=== PATIENT | female | born 1965 | race Caucasian/White ===

== ENCOUNTER 2020-12-10 10:59 | Emergency (ER) | payer MEDICAID, SELFPAY ==
[2020-12-10] VITALS (7 sets, daily range): BP systolic 115–152; BP diastolic 70–99; PULSE 61–89; RESP 14–18; TEMP 36.7–37.1; O2SAT 98–99; BMI 24.8
--- NOTE | ~2020-12-10 | CT_ITS ---
EXAMINATION: CT HEAD WITHOUT CONTRAST CLINICAL INFORMATION: Vertigo COMPARISON: None TECHNIQUE: Contiguous axial imaging was performed from the skull base to vertex without intravenous administration of contrast. This CT examination was performed using dose optimization techniques as appropriate, variously including the following: *Automated exposure control *Adjustment of mA and/or kV according to patient size (this includes techniques or standardized protocols for targeted exams where dose is matched to indication/reason for exam; i.e. extremities or head) *Use of iterative reconstruction technique DLP: 553 mGy-cm FINDINGS: There is no evidence of acute intracranial hemorrhage or territorial infarction. No abnormal mass effect or midline shift is seen. Villa to white matter differentiation is well preserved. No extra-axial fluid collections are identified. The ventricles are normal in size. There is no abnormal attenuation within the brain parenchyma. The osseous structures and soft tissues are normal. The mastoid air cells and visualized portions of the paranasal sinuses are well aerated. CT/CT head/brain wo con IMPRESSION: No acute intracranial process seen.
--- NOTE | ~2020-12-10 | MR_ITS ---
EXAMINATION: MR BRAIN WITHOUT CONTRAST CLINICAL INFORMATION: Vertigo. COMPARISON: CT head from 12/10/2020. TECHNIQUE: MRI of the brain was obtained using routine sequences without contrast. FINDINGS: No focal restricted diffusion is demonstrated to suggest acute or subacute cerebral ischemia. No evidence of acute or chronic hemorrhagic products on heme-sensitive imaging. Minimal nonspecific T2 FLAIR hyperintensities within the bilateral frontal lobes. No additional parenchymal signal abnormalities. The ventricles are normal in morphology and size. No abnormal mass effect. No midline shift. Normal appearance of the pituitary gland. The cerebellar tonsils are mildly low lying, positioned 0.4 cm below the foramen magnum. The CSF space of the foramen magnum is maintained. No additional abnormalities of the posterior fossa with normal appearance of the brainstem and cerebellum. Normal arterial and venous vascular flow voids are present. Normal, homogeneous marrow signal. Mild mucosal thickening of the paranasal sinuses. No signal abnormalities within the mastoids. MR/MR head/brain wo con IMPRESSION: 1. No acute intracranial abnormalities. 2. Minimal nonspecific white matter changes. 3. Mild cerebellar tonsillar ectopia.
--- NOTE | ~2020-12-10 | XR_ITS ---
EXAMINATION: XR CHEST CLINICAL INFORMATION: Chest tightness COMPARISON: Chest radiographs 04/24/2017, 04/19/2012 TECHNIQUE: Portable upright AP view of the chest was obtained. FINDINGS: The lungs are clear and there is no airspace consolidation, pneumothorax, pleural reaction, groundglass opacity, or effusion. There is a linear artifact likely from tag on gown overlying the mid right chest. The heart is normal in size. The hilar and mediastinal contours and bony structures are unremarkable. XR/XR chest 1V IMPRESSION: No acute intrathoracic disease. Lungs clear.
--- NOTE | 2020-12-10 12:41 | ECG_ITS ---
Test Reason : DIZZY Blood Pressure : / mmHG Vent. Rate : 056 BPM Atrial Rate : 056 BPM P-R Int : 126 ms QRS Dur : 070 ms QT Int : 430 ms P-R-T Axes : 046 021 030 degrees QTc Int : 414 ms Sinus bradycardia Otherwise normal ECG When compared with ECG of 24-APR-2017 11:48, No significant change was found Referred By: Kelly Wylie Electronically Signed By:Mayank Plunkett
--- NOTE | 2020-12-10 12:43 | ED_ITS ---
HPI - Dizziness General Chief Complaint: Dizziness Stated Complaint: dizziness Time Seen by Provider: 12/10/20 12:41 Source: patient Mode of arrival: ambulatory Limitations: no limitations History of Present Illness HPI Narrative: 55-year-old female came in for evaluation of vertigo. Symptoms started 3 days ago feeling everything spinning around her, patient also feeling generalized weakness, symptoms is intermittent worsening by changing position, patient has been feeling pressure in her head and her both years, complains of intermittent right upper extremities weakness. Patient also been having chest tightness for the past 3 days on and off. Related Data Allergies Allergy/AdvReac Type Severity Reaction Status Date / Time Cortisone Allergy Intermediate redness, Uncoded 12/10/20 11:20 hives, rash, swelling Review of Systems Review of Systems: All other systems are reviewed and are negative Constitutional: Reports as per HPI and Reports no additional constitutional complaints Eyes: Reports as per HPI and Reports no additional eye complaints Reports system reviewed and no additional complaints, except as documented Cardiovascular: Reports as per HPI and Reports no additional cardiovascular complaints Respiratory: Reports as per HPI and Reports no additional respiratory complaints Gastrointestinal: Reports as per HPI and Reports no additional gastrointestinal complaints Genitourinary: Reports no additional female genitourinary complaints Musculoskeletal: Reports no additional musculoskeletal complaints Skin/Breast: Reports system reviewed and no additional complaints, except as docu Psychiatric: Reports no additional psychiatric complaints Endocrine: Reports no additional endocrine complaints Hematologic/Lymphatic: Reports no additional hematologic/lymphatic complaints Allergic/Immunologic: Reports no additional allergic/immunologic complaints Reports system reviewed and no additional complaints, except as documented and Reports Abnormal speech present [facility] Past Medical History Medical History Anxiety Depression Migraines Vertigo Surgical History Hx of tubal ligation S/P hernia surgery Social History Social History Alcohol intake: never Patient Tobacco Use Status: Never used Tobacco Use of substances other than those prescribed or required for medical reasons: No Advance Directives: Yes Advance Directives Information Provided: Yes Advance Directives on File: No Patient : No Physical Exam Vital Signs: Vital Signs: Last Vital Signs Temp 98.2 F 12/10/20 15:37 Pulse 62 12/10/20 15:37 Resp 14 12/10/20 15:37 BP 123/70 12/10/20 15:37 Pulse Ox 98 12/10/20 15:37 Body Mass Index 24.8 Vital signs have been reviewed as appeared to be correct. Blood pressure normal. Heart rate normal. Respiration rate normal. Temperature normal. Oxygen saturation normal. Appearance: Alert. Oriented X3. No acute distress. Head: Normal external exam. Normocephalic. Atraumatic. No Thomas signs noted. No raccoon eyes noted Eyes: PERRLA. EOMI. Conjunctiva and sclera normal. Eyelids normal. ENT: TM's Normal. Pharynx normal. Uvula midline. Moist mucous membranes. No trismus noted. No drooling noted. No muffled voice noted. Neck: Normal inspection. Neck supple. FROM. No adenopathy. Thyroid Normal. No meningeal signs. No neck mass noted. CVS: Normal heart rate and rhythm. Heart sound normal. No murmurs noted. Pulses normal throughout. Respiratory: No respiratory distress. Painless inspiration. Breath sounds normal. No wheezes/rales/rhonchi noted. Chest nontender. No accessory muscle usage noted or decreased air movement noted. Abdomen: Soft and nontender. Bowel sounds normal in all 4 quadrants. No distention noted. No organomegaly noted. No visible injury noted. Back: No CVA tenderness. Full range of motion noted. Skin: Skin warm and dry. Normal skin color. Normal skin turgor. No rashes/lesions/lacerations noted. Extremities: No lower extremity edema. Extremities exhibit normal range of motion. Extremities nontender. Neuro: Oriented X 3. No motor deficit. No sensory deficit. No [id number] dysmetria, able to ambulate in the emergency department unsteady gait, walk heel to toe steady. NIH Stroke Scale Level of Consciousness: Alert Level of Consciousness Questions: Answers both questions correctly Level of Consciousness Commands: Performs both tasks correctly Best Gaze: Normal Visual: No visual loss Facial Palsy: Normal Motor Arm (Right): No drift Motor Arm (Left): No drift Motor Leg (Right): No drift Motor Leg (Left): No drift Limb Ataxia: Absent Sensory: Normal Best Language: No aphasia Dysarthia: Normal Extinction and Inattention: No abnormality Score: 0 Course Course Course Narrative: Assessment and plan. 55-year-old female came in with symptoms of vertigo, chest tightness. Elevated troponin , awaiting for 2nd 3 hours apart troponin to rule out delta change. Patient has unremarkable CT of the head, awaiting for MRI to rule out posterior fossa pathology. Case signed out to Dr. Rasmussen to follow up on above and dispo the patient accordingly. MDM - Dizziness Lab Data Attestation: I reviewed the patient's lab results. Result diagrams: 12/10/20 13:14 12/10/20 13:14 Labs: Lab Results 12/10/20 12/10/20 12/10/20 Range/Units 13:14 13:14 13:14 WBC 6.3 (4.8-10.8) X10*3/uL RBC 4.48 (4.20-5.50) X10*6/uL Hgb 13.6 (12.0-16.0) g/dl Hct 41.3 (37-47) % MCV 92.2 (80-98) fL MCH 30.4 (27.0-33.0) pg MCHC 32.9 (31.0-35.0) g/dl RDW 13.1 (11.0-16.0) % Plt Count 269 (160-400) X10*3/uL MPV 9.7 (9.4-12.3) fL Immature Gran % (Auto) 0.2 (0.0-0.4) % Neut % (Auto) 57.3 (45-73) % Lymph % (Auto) 34.9 (20-40) % [place] % (Auto) 6.5 (2-11) % Eos % (Auto) 0.6 (0-4) % Baso % (Auto) 0.5 (0-2) % Lymph # (Auto) 2.2 (1.2-4.9) X10*3/uL [place] # (Auto) 0.4 (0.1-1.2) X10*3/uL Eos # (Auto) 0.0 (0.0-0.4) X10*3/uL Baso # (Auto) 0.0 (0.0-0.2) X10*3/uL Abs Immat Gran (auto) 0.01 (0.00-0.03) X10*3/uL Absolute Neuts (auto) 3.6 (2.0-8.3) X10*3/uL Absolute Nucleated RBC 0.000 (0.0-0.012) X10*3/uL Nucleated RBC % (auto) 0.0 (0.0-0.2) /100WBC Sodium 141 (135-145) mmol/L Potassium 4.1 (3.3-5.1) mmol/L Chloride 108 (96-108) mmol/L Carbon Dioxide 26 (22-29) mmol/L Anion Gap 11 L (12-20) BUN 9 (9-16) mg/dL Creatinine 0.70 (0.5-1.4) mg/dL Estim Creat Clear Calc 78.5 Estimated GFR > 60 Random Glucose 107 (60-115) mg/dL Calcium 9.4 (8.4-10.2) mg/dL Total Bilirubin 0.3 (0.0-1.0) mg/dL Direct Bilirubin < 0.2 (0.0-0.5) mg/dL AST 20 (5-31) U/L ALT 12 (0-31) U/L Alkaline Phosphatase 78 (39-117) U/L Troponin I High Sens 19.5 H* (<3.5-17.0) ng/L Total Protein 7.4 (6.5-8.0) g/dL Albumin 4.4 (3.5-5.0) g/dL Lipase 25 (8-78) U/L Urine Color Urine Appearance Urine pH (5.0-8.0) Ur Specific [place] (1.005-1.025) Urine Protein (NEG-TRACE) MG/DL Urine Glucose (UA) (NEG) MG/DL Urine Ketones (NEG) MG/DL Urine Blood (NEG) Urine Nitrite (NEG) Ur Leukocyte Esterase (NEG) Urine RBC (0) /HPF Urine WBC (0-4) /HPF Ur Squamous Epith Cells /LPF Urine Bacteria /LPF 12/10/20 12/10/20 Range/Units 13:14 13:21 WBC (4.8-10.8) X10*3/uL RBC (4.20-5.50) X10*6/uL Hgb (12.0-16.0) g/dl Hct (37-47) % MCV (80-98) fL MCH (27.0-33.0) pg MCHC (31.0-35.0) g/dl RDW (11.0-16.0) % Plt Count (160-400) X10*3/uL MPV (9.4-12.3) fL Immature Gran % (Auto) (0.0-0.4) % Neut % (Auto) (45-73) % Lymph % (Auto) (20-40) % Haywood % (Auto) (2-11) % Eos % (Auto) (0-4) % Baso % (Auto) (0-2) % Lymph # (Auto) (1.2-4.9) X10*3/uL [place] # (Auto) (0.1-1.2) X10*3/uL Eos # (Auto) (0.0-0.4) X10*3/uL Baso # (Auto) (0.0-0.2) X10*3/uL Abs Immat Gran (auto) (0.00-0.03) X10*3/uL Absolute Neuts (auto) (2.0-8.3) X10*3/uL Absolute Nucleated RBC (0.0-0.012) X10*3/uL Nucleated RBC % (auto) (0.0-0.2) /100WBC Sodium (135-145) mmol/L Potassium (3.3-5.1) mmol/L Chloride (96-108) mmol/L Carbon Dioxide (22-29) mmol/L Anion Gap (12-20) BUN (9-16) mg/dL Creatinine (0.5-1.4) mg/dL Estim Creat Clear Calc Estimated GFR Random Glucose (60-115) mg/dL Calcium (8.4-10.2) mg/dL Total Bilirubin (0.0-1.0) mg/dL Direct Bilirubin (0.0-0.5) mg/dL AST (5-31) U/L ALT (0-31) U/L Alkaline Phosphatase (39-117) U/L Troponin I High Sens Cancelled (<3.5-17.0) ng/L Total Protein (6.5-8.0) g/dL Albumin (3.5-5.0) g/dL Lipase (8-78) U/L Urine Color YELLOW Urine Appearance CLEAR Urine pH 6.0 (5.0-8.0) Ur Specific [place] <= 1.005 (1.005-1.025) Urine Protein NEG (NEG-TRACE) MG/DL Urine Glucose (UA) NEG (NEG) MG/DL Urine Ketones NEG (NEG) MG/DL Urine Blood NEG (NEG) Urine Nitrite NEG (NEG) Ur Leukocyte Esterase 1+ H (NEG) Urine RBC 0-2 (0) /HPF Urine WBC 10-14 H (0-4) /HPF Ur Squamous Epith Cells 1+ /LPF Urine Bacteria TRACE /LPF Imaging Data CT scan - head: Radiologist's impression: No acute intracranial pathology. Chest x-ray: Radiologist's impression: No acute intrathoracic disease. Lungs clear. ECG Data Interpretation: Sinus bradycardia at 56 beats per minute, normal intervals, normal axis deviation, no ST-T changes. Discharge Plan Discharge Clinical Impression: Vertigo, Elevated troponin
[2020-12-10] MEDS: Meclizine HCl 25 MG TABLET PO (13:25)
[2020-12-10] MEDS: 0.9 % Sodium Chloride 1,000 ML 999 ML IVCONT (13:25)
[2020-12-10] MEDS: LORazepam 1 MG TABLET PO (13:26)
[2020-12-10 13:28] LABS: MANUAL DIFF FLAG NO
[2020-12-10 13:30] LABS: Basophils Percent Auto 0.5 % (0-2); Eosinophils Percent Auto 0.6 % (0-4); Hematocrit 41.3 % (37-47); Hemoglobin 13.6 g/dl (12.0-16.0); Imm Gran Abs Auto 0.01 X10*3/uL (0.00-0.03); Imm Gran Pct Auto 0.2 % (0.0-0.4); Lymphocytes Absolute Auto 2.2 X10*3/uL (1.2-4.9); Lymphocytes Percent Auto 34.9 % (20-40); Mean Corpuscular HGB Conc 32.9 g/dl (31.0-35.0); Mean Corpuscular Hemoglobin 30.4 pg (27.0-33.0); Mean Corpuscular Volume 92.2 fL (80-98); Mean Platelet Volume 9.7 fL (9.4-12.3); Monocytes Absolute Auto 0.4 X10*3/uL (0.1-1.2); Monocytes Percent Auto 6.5 % (2-11); Neutrophils Absolute Auto 3.6 X10*3/uL (2.0-8.3); Neutrophils Percent Auto 57.3 % (45-73); Platelet Count 269 X10*3/uL (160-400); Red Blood Count 4.48 X10*6/uL (4.20-5.50); Red Cell Distribution Width 13.1 % (11.0-16.0); White Blood Count 6.3 X10*3/uL (4.8-10.8)
[2020-12-10 13:31] LABS: Glucose Urine UA NEG (NEG); Leukocyte Esterase Urine 1+ (NEG); Nitrite Urine NEG (NEG); Specific Gravity - Urine <= 1.005 (1.005-1.025); UACC Culture Trigger YES; Urine Blood NEG (NEG); Urine Ketones NEG (NEG); Urine Protein NEG (NEG-TRACE)
[2020-12-10 13:34] LABS: Appearance Urine CLEAR; Color Urine YELLOW
[2020-12-10 13:43] LABS: Bacteria Urine TRACE /LPF; RBC Urine 0-2 /HPF (0); Squamous Epithelial Cell Urine 1+ /LPF
[2020-12-10 14:01] LABS: Alanine Aminotransferase 12 U/L (0-31); Albumin Level 4.4 g/dL (3.5-5.0); Alkaline Phosphatase 78 U/L (39-117); Anion Gap 11 (12-20); Aspartate Amino Transferase 20 U/L (5-31); Bilirubin Direct < 0.2 mg/dL (0.0-0.5); Bilirubin Total 0.3 mg/dL (0.0-1.0); Blood Urea Nitrogen 9 mg/dL (9-16); Calcium 9.4 mg/dL (8.4-10.2); Carbon Dioxide 26 mmol/L (22-29); Chloride 108 mmol/L (96-108); Creatinine Clr Calc Pharmacy 78.5; Estimated Glomerular Filt Rate > 60; Glucose Random 107 mg/dL (60-115); Lipase 25 U/L (8-78); Potassium 4.1 mmol/L (3.3-5.1); Sodium 141 mmol/L (135-145); Total Protein 7.4 g/dL (6.5-8.0)
[2020-12-10 14:09] LABS: Troponin-I High Sensitivity 19.5 ng/L (<3.5-17.0)
--- NOTE | 2020-12-10 14:41 | PC.NURSE ---
MRI screening form completed. Pt resting in bed in NAD.
[2020-12-10 18:00] LABS: Troponin-I High Sensitivity 16.5 ng/L (<3.5-17.0)
== END 2020-12-10 20:33 | disposition home or self-care (01) ==
PROVIDERS: Emergency Provider Emergency Medicine; PCP Internal Medicine
DX: H81.10 Benign paroxysmal vertigo, unspecified ear (principal); R79.89 Other specified abnormal findings of blood chemistry
CPT/HCPCS: 36415; 70450; 70551; 71045; 80048; 80076; 81001; 81003; 83690; 84484; 85025; 87086; 93005; 96360; 99285

== ENCOUNTER 2021-03-12 11:10 | Outpatient (REF) | payer OTHER, SELFPAY ==
--- NOTE | ~2021-03-12 | XR_ITS ---
EXAMINATION: XR CHEST CLINICAL INFORMATION: Acute upper respiratory infection. COMPARISON: Chest radiograph dated 12/10/2020. TECHNIQUE: 2 views of the chest were obtained. FINDINGS: The lungs are clear. The cardiomediastinal silhouette is normal in size. There is no pleural effusion or pneumothorax. No acute osseous abnormality. XR/XR chest 2V IMPRESSION: No acute cardiopulmonary findings.
[2021-03-12 11:53] LABS: Hematocrit 42.9 % (37-47); Hemoglobin 14.1 g/dl (12.0-16.0); Mean Corpuscular HGB Conc 32.9 g/dl (31.0-35.0); Mean Corpuscular Hemoglobin 29.8 pg (27.0-33.0); Mean Corpuscular Volume 90.7 fL (80-98); Mean Platelet Volume 9.8 fL (9.4-12.3); Platelet Count 302 X10*3/uL (160-400); Red Blood Count 4.73 X10*6/uL (4.20-5.50); Red Cell Distribution Width 12.9 % (11.0-16.0); White Blood Count 6.8 X10*3/uL (4.8-10.8)
[2021-03-12 12:06] LABS: Estimated Average Glucose 111 mg/dL; Hemoglobin A1c % 5.5 %
[2021-03-12 12:37] LABS: Alanine Aminotransferase 24 U/L (0-31); Albumin Level 4.7 g/dL (3.5-5.0); Alkaline Phosphatase 80 U/L (39-117); Anion Gap 11 (12-20); Aspartate Amino Transferase 24 U/L (5-31); Bilirubin Total 0.3 mg/dL (0.0-1.0); Blood Urea Nitrogen 10 mg/dL (9-16); Calcium 9.8 mg/dL (8.4-10.2); Carbon Dioxide 30 mmol/L (22-29); Chloride 104 mmol/L (96-108); Cholesterol 271 mg/dL; Estimated Glomerular Filt Rate > 60; Glucose Fasting 98 mg/dL (60-99); HDL Cholesterol 57 mg/dL; LDL Cholesterol Calculated 190 mg/dl; Potassium 4.6 mmol/L (3.3-5.1); Sodium 140 mmol/L (135-145); Total Protein 7.8 g/dL (6.5-8.0); Triglycerides 121 mg/dL
[2021-03-12 13:17] LABS: TSH reflex Free T4 0.44 uIU/mL (0.32-4.0)
== END 2021-03-12 11:11 | disposition home or self-care (01) ==
LOC: HO.XRAY 11:10
PROVIDERS: PCP Internal Medicine; Visit Provider Physician Assistant
DX: J06.9 Acute upper respiratory infection, unspecified (principal); I10 Essential (primary) hypertension; Z13.220 Encounter for screening for lipoid disorders; Z13.1 Encounter for screening for diabetes mellitus; Z13.29 Encounter for screening for other suspected endocrine disorder
CPT/HCPCS: 36415; 71046; 80053; 80061; 83036; 84443; 85027

== ENCOUNTER 2021-03-21 16:26 | Outpatient (REF) | payer OTHER, SELFPAY | END 2021-03-21 16:27 | disposition home or self-care (01) | LOC: HO.LNP 16:26 | PROVIDERS: Visit Provider Physician Assistant Medical | DX: R30.0 Dysuria (principal) | CPT/HCPCS: 87086 ==

== ENCOUNTER 2021-04-19 13:29 | Outpatient (REF) | payer OTHER, SELFPAY ==
--- NOTE | ~2021-04-19 | MM_ITS ---
EXAMINATION: MM SCREENING DIGITAL BREAST TOMOSYNTHESIS, BILATERAL CLINICAL INFORMATION: Screening. Asymptomatic. The lifetime risk of breast cancer based on the Tyrer-Cuzick Model is 8%. COMPARISON: Mammography: 09/22/2018, 08/10/2017, 07/17/2016 TECHNIQUE: Digital breast tomosynthesis is performed in both the craniocaudal and mediolateral oblique views along with computer-aided detection (CAD). Synthesized 2D images are generated from the tomosynthesis. Additional left CC view is provided. FINDINGS: There are scattered areas of fibroglandular density (ACR BI-RADS breast composition Category b). Parenchymal pattern is similar to prior studies. Scattered bilateral minor asymmetries are stable. There is no developing density or interval mass or architectural abnormality. Dermal lesion again seen overlying the posterior 7:00 left breast. There are no abnormal calcifications. The axilla and skin contours are unremarkable. MM/MM tomosynthesis screening BI IMPRESSION: No significant changes from prior exams. ASSESSMENT: BI-RADS 2: Benign RECOMMENDATION: Routine annual mammography screening. This patient's information was entered into a reminder system with a target due date for their next mammogram.
== END 2021-04-19 13:30 | disposition home or self-care (01) ==
LOC: HO.MAMMO 13:29
PROVIDERS: Visit Provider Internal Medicine
DX: Z12.31 Encounter for screening mammogram for malignant neoplasm of breast (principal)
CPT/HCPCS: 77063; 77067

== ENCOUNTER 2021-08-05 10:15 | Outpatient (REF) | payer OTHER, SELFPAY ==
[2021-08-05 10:42] LABS: MANUAL DIFF FLAG NO
[2021-08-05 10:59] LABS: Basophils Percent Auto 0.5 % (0-2); Eosinophils Absolute Auto 0.1 X10*3/uL (0.0-0.4); Eosinophils Percent Auto 1.2 % (0-4); Hematocrit 41.9 % (37.0-47.0); Hemoglobin 13.6 g/dl (12.0-16.0); Imm Gran Abs Auto 0.02 X10*3/uL (0.00-0.03); Imm Gran Pct Auto 0.3 % (0.0-0.4); Lymphocytes Absolute Auto 2.3 X10*3/uL (1.2-4.9); Lymphocytes Percent Auto 39.3 % (20-40); Mean Corpuscular HGB Conc 32.5 g/dl (31.0-35.0); Mean Corpuscular Hemoglobin 29.5 pg (27.0-33.0); Mean Corpuscular Volume 90.9 fL (80.0-98.0); Mean Platelet Volume 9.3 fL (9.4-12.3); Monocytes Absolute Auto 0.3 X10*3/uL (0.1-1.2); Monocytes Percent Auto 5.5 % (2-11); Neutrophils Absolute Auto 3.2 x10*3/uL (2.0-8.3); Neutrophils Percent Auto 53.2 % (45-73); Platelet Count 308 X10*3/uL (160-400); Red Blood Count 4.61 X10*6/uL (4.20-5.50); Red Cell Distribution Width 12.6 % (11.0-16.0)
[2021-08-05 11:27] LABS: Appearance Urine CLOUDY; Color Urine YELLOW; Glucose Urine UA NEG (NEG); Leukocyte Esterase Urine 3+ (NEG); Nitrite Urine NEG (NEG); Specific Gravity - Urine 1.015 (1.005-1.025); UACC Culture Trigger YES; Urine Blood TRACE (NEG); Urine Ketones NEG (NEG); Urine Protein TRACE MG/DL (NEG-TRACE)
[2021-08-05 11:27] LABS: Alanine Aminotransferase 15 U/L (0-31); Albumin Level 4.3 g/dL (3.5-5.0); Alkaline Phosphatase 68 U/L (39-117); Anion Gap 11 (12-20); Aspartate Amino Transferase 20 U/L (5-31); Bilirubin Total 0.2 mg/dL (0.0-1.0); Blood Urea Nitrogen 9 mg/dL (9-16); Calcium 9.5 mg/dL (8.4-10.2); Carbon Dioxide 28 mmol/L (22-29); Chloride 107 mmol/L (96-108); Cholesterol 213 mg/dL; Estimated Glomerular Filt Rate > 60; Glucose Fasting 107 mg/dL (60-99); HDL Cholesterol 49 mg/dL; LDL Cholesterol Calculated 143 mg/dl; Potassium 4.5 mmol/L (3.3-5.1); Sodium 141 mmol/L (135-145); Total Protein 7.2 g/dL (6.5-8.0); Triglycerides 107 mg/dL
[2021-08-05 11:44] LABS: RBC Urine 0-2 /HPF (0); Squamous Epithelial Cell Urine 2+ /LPF; WBC Urine 30-49 /HPF (0-4)
[2021-08-05 11:45] LABS: Amorphous Sediment Urine 3+ /LPF; Bacteria Urine 2+ /LPF; Renal Epithelial Cells Urine 1+ /LPF
[2021-08-05 17:47] LABS: Appearance Urine HAZY; Color Urine YELLOW; Glucose Urine UA NEG (NEG); Leukocyte Esterase Urine 3+ (NEG); Nitrite Urine NEG (NEG); PH 7.5 (5.0-8.0); Specific Gravity - Urine 1.015 (1.005-1.025); UACC Culture Trigger YES; Urine Blood TRACE (NEG); Urine Ketones NEG (NEG); Urine Protein NEG (NEG-TRACE)
[2021-08-05 18:02] LABS: Squamous Epithelial Cell Urine 2+ /LPF
[2021-08-05 18:03] LABS: Amorphous Sediment Urine 1+ /LPF
[2021-08-05 18:04] LABS: RBC Urine 0-2 /HPF (0)
== END 2021-08-05 10:16 | disposition home or self-care (01) ==
LOC: HO.LAB 10:15
PROVIDERS: PCP Internal Medicine; Visit Provider Nurse Practitioner Acute Care
DX: E78.5 Hyperlipidemia, unspecified (principal); R30.0 Dysuria
CPT/HCPCS: 36415; 80053; 80061; 81001; 85025; 87086; 87147

== ENCOUNTER 2021-08-13 10:00 | Outpatient (REF) | payer OTHER, SELFPAY ==
[2021-08-14 04:10] LABS: CT PCR NOT DETECTED (Not Detect.); NG PCR NOT DETECTED (Not Detect.)
== END 2021-08-13 10:01 | disposition home or self-care (01) ==
LOC: HO.LAB 10:00
PROVIDERS: PCP Internal Medicine; Visit Provider Advanced Practice Midwife
DX: Z01.411 Encounter for gynecological examination (general) (routine) with abnormal findings (principal); N95.2 Postmenopausal atrophic vaginitis; Z20.2 Contact with and (suspected) exposure to infections with a predominantly sexual mode of transmission
CPT/HCPCS: 87491; 87591

== ENCOUNTER 2021-09-18 07:57 | Outpatient (REF) | payer OTHER, SELFPAY ==
--- NOTE | ~2021-09-18 | XR_ITS ---
EXAMINATION: XR SHOULDER, RIGHT CLINICAL INFORMATION: Chronic pain. COMPARISON: 04/19/2015 TECHNIQUE: AP external rotation, Grashey, scapular Y, and axillary views of the right shoulder. FINDINGS: There is no evidence of acute fracture or dislocation of the right shoulder. Glenohumeral joint unremarkable. No evidence of calcific tendinitis. No significant degenerative change of the acromioclavicular joint is seen. No widening of the coracoclavicular space is seen. XR/XR shoulder RT min 2V IMPRESSION: No significant bony abnormality of the right shoulder identified.
== END 2021-09-18 07:58 | disposition home or self-care (01) ==
LOC: HO.XRAY 07:57
PROVIDERS: PCP Internal Medicine; Visit Provider Internal Medicine
DX: M25.511 Pain in right shoulder (principal)
CPT/HCPCS: 73030

== ENCOUNTER → 2021-10-18 08:34 | Outpatient (BNVA) | payer OTHER, SELFPAY | PROVIDERS: PCP Internal Medicine; Visit Provider Physician Assistant | DX: M75.101 Unspecified rotator cuff tear or rupture of right shoulder, not specified as traumatic (principal) | CPT/HCPCS: 99202; J1040 ==

== ENCOUNTER 2021-11-16 14:28 | Emergency (ER) | payer OTHER, SELFPAY ==
[2021-11-16 14:42] VITALS: BP 138/85; PULSE 72; RESP 19; TEMP 36.6; O2SAT 98; BMI 25.0
--- NOTE | 2021-11-16 15:27 | ED_ITS ---
HPI - Extremity Problem General Chief complaint: Extremity Injury, Upper Stated complaint: shoulder pain/vertigo Time Seen by Provider: 11/16/21 15:27 History of Present Illness HPI Narrative: Patient with right shoulder pain which has been going on for almost 2 months after she fell and injured it, she was seen by Orthopedics but refused to steroid shot as she has had a bad reaction to steroids in the past Two days ago she was walking and bumped her shoulder into the wall with a minor trauma, and the shoulder has been more painful since She did not fall down, no neck pain no head injury Related Data Home Medications Medication Instructions Recorded Confirmed duloxetine 20 mg capsule,delayed 20 mg PO DAILY 03/21/21 09/18/21 release hydroxyzine HCl 25 mg tablet 25 mg PO BID 03/21/21 09/18/21 propranolol 10 mg tablet 10 mg PO DAILY 03/21/21 09/18/21 Previous Rx's Medication Instructions Recorded meclizine 25 mg tablet 25 mg PO TID PRN motion sickness 12/10/20 #30 tabs ibuprofen 800 mg tablet 800 mg PO Q8H PRN pain 7 days #21 09/18/21 tabs atorvastatin 20 mg tablet 20 mg PO DAILY 90 days #90 tabs 09/23/21 acetaminophen 500 mg tablet 1,000 mg PO QID PRN pain #30 tabs 11/16/21 ibuprofen 800 mg tablet 800 mg PO Q8H PRN pain #30 tabs 11/16/21 lidocaine 5 % topical patch 1 patch topical DAILY PRN Right 11/16/21 shoulder pain #30 ea Allergies Allergy/AdvReac Type Severity Reaction Status Date / Time Cortisone Allergy Intermediate redness, Uncoded 10/18/21 08:45 hives, rash, swelling Review of Systems Review of Systems: Positive for right shoulder pain Negatives are no headache no neck pain no numbness weakness or tingling no radiation of pain no neck pain no chest pain no shortness of breath no palpitations no other extremity pains no rash Yes all other systems are reviewed and are negative [facility] Past Medical History Source: nursing notes reviewed Medical History Anxiety Depression Migraines Mild recurrent major depression Plantar fasciitis Right shoulder pain Vertigo Surgical History Hx of tubal ligation S/P hernia surgery Family History Family History Mother Mental health disorder Maternal Aunt Mental health disorder Breast cancer Ovarian cancer Maternal Grandmother Mental health disorder Father Substance use disorder Maternal Aunt Uterine cancer Social History Social History (Updated 10/18/21 @ 08:56 by MONIE Stevens) Housing: Apartment Alcohol intake: never Patient Tobacco Use Status: Former Tobacco user Tobacco use type: Cigarette e-Cigarette/Vaping Use: Never Used Second Hand Smoke Exposure: No Advance Directives: No Advance Directives Information Provided: No service: No Current occupational status: unemployed 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 Cognitive needs: No Hearing needs: No Vision needs: No Physical Exam Vital Signs: Vital Signs: Last Vital Signs Temp 98 F 11/16/21 14:42 Pulse 72 11/16/21 14:42 Resp 19 11/16/21 14:42 BP 138/85 11/16/21 14:42 Pulse Ox 98 11/16/21 14:42 O2 Del Method 11/16/21 14:42 BMI result Body Mass Index 25.0 General appearance no acute distress Head is normocephalic atraumatic Neck is supple and nontender with full range of motion The chest is clear to auscultation no chest wall tenderness Heart no murmur Extremities the right shoulder had anterior and lateral tenderness with a limited range of motion there was no redness or warmth, neurovascular intact distal Other extremities were normal Skin no rash Neuro no focal motor sensory deficits Course Course Course Narrative: Patient with increased right shoulder pain after bumping it into a wall, the mechanism was minor, she had decent range of motion there was no focal bony tenderness and very unlikely that she fractured it so no new x-ray was done She is given prescription for analgesics and encouraged to follow with orthopedics for further evaluation of possible rotator cuff injury from a previous fall 2 months ago Discharge Plan Discharge Clinical Impression: Sprain of right shoulder Patient Disposition: Home, Self-Care Additional Instructions: Follow with orthopedist for further evaluation Use Motrin and Tylenol as needed, lidocaine patch might help Return any concerns Prescriptions: New acetaminophen 500 mg tablet 1,000 mg PO QID PRN (Reason: pain) Qty: 30 0RF ibuprofen 800 mg tablet 800 mg PO Q8H PRN (Reason: pain) Qty: 30 0RF lidocaine 5 % adhesive patch,medicated 1 patch topical DAILY PRN (Reason: Right shoulder pain) Qty: 30 0RF Rx Instructions: leave on most painful area for up to 12 hrs No Action atorvastatin 20 mg tablet 20 mg PO DAILY 90 Days Qty: 90 1RF meclizine 25 mg tablet 25 mg PO TID PRN (Reason: motion sickness) Qty: 30 0RF duloxetine 20 mg capsule,delayed release(DR/EC) 20 mg PO DAILY propranolol 10 mg tablet 10 mg PO DAILY hydroxyzine HCl 25 mg tablet 25 mg PO BID ibuprofen 800 mg tablet 800 mg PO Q8H PRN (Reason: pain) 7 Days Qty: 21 0RF Referrals: Alcides Sorto MD [Physician] - (Possible right-sided rotator cuff injury) Interventions: ED Discharge Assessment Last Done: 11/16/21 16:23 Discharge Date/Time: 11/16/21 16:27
[2021-11-16] MEDS: Ketorolac Tromethamine 30 MG/ML VIAL IM (15:51)
== END 2021-11-16 16:27 | disposition home or self-care (01) ==
PROVIDERS: Emergency Provider Student in an Organized Health Care Education/Training Program; PCP Internal Medicine
DX: S43.401A Unspecified sprain of right shoulder joint, initial encounter (principal); R42 Dizziness and giddiness; W01.0XXA Fall on same level from slipping, tripping and stumbling without subsequent striking against object, initial encounter; Y93.9 Activity, unspecified; Y92.9 Unspecified place or not applicable; Y99.9 Unspecified external cause status; Z87.891 Personal history of nicotine dependence; Z79.899 Other long term (current) drug therapy
CPT/HCPCS: 96372; 99283; 99284; J1885

== ENCOUNTER → 2021-12-10 12:43 | Outpatient (BNVA) | payer OTHER, SELFPAY | PROVIDERS: Visit Provider Physician Assistant | DX: M75.101 Unspecified rotator cuff tear or rupture of right shoulder, not specified as traumatic (principal) | CPT/HCPCS: 99212 ==

== ENCOUNTER 2021-12-20 10:51 | Outpatient (REF) | payer OTHER, SELFPAY ==
--- NOTE | ~2021-12-20 | CT_ITS ---
EXAMINATION: CT SHOULDER WITHOUT CONTRAST, RIGHT CLINICAL INFORMATION: Rotator cuff tear. COMPARISON: X-rays of the right shoulder August 2021. TECHNIQUE: CT scan of the right shoulder was performed without contrast with reconstruction imaging performed at the acquisition workstation. This CT examination was performed using dose optimization techniques as appropriate, variously including the following: *Automated exposure control *Adjustment of mA and/or kV according to patient size (this includes techniques or standardized protocols for targeted exams where dose is matched to indication/reason for exam; i.e. extremities or head) *Use of iterative reconstruction technique DLP: 274 mGy-cm FINDINGS: The glenohumeral joint and acromioclavicular joint are normal. No fracture. Evaluation of the rotator cuff is limited without intra-articular contrast. No definite atrophy or fatty infiltration of the muscle. Partially visualized chest unremarkable. CT/CT shoulder RT wo con IMPRESSION: Normal examination. Cannot fully evaluate rotator cuff without intra-articular contrast. No atrophy or fatty infiltration of the rotator cuff muscles.
== END 2021-12-20 10:52 | disposition home or self-care (01) ==
LOC: HO.CT 10:51
PROVIDERS: PCP Internal Medicine; Visit Provider Physician Assistant
DX: M75.101 Unspecified rotator cuff tear or rupture of right shoulder, not specified as traumatic (principal)
CPT/HCPCS: 73200

== ENCOUNTER 2021-12-23 18:22 | Outpatient (REF) | payer OTHER, SELFPAY ==
--- NOTE | ~2021-12-23 | MR_ITS ---
EXAMINATION: MR SHOULDER WITHOUT CONTRAST, RIGHT CLINICAL INFORMATION: Right shoulder pain and numbness. Limited range of motion. Weakness. COMPARISON: Right shoulder CT dated 12/20/2021 and right shoulder radiographs dated 09/18/2021. TECHNIQUE: MRI of the shoulder without contrast was performed on a high-field scanner. FINDINGS: ROTATOR CUFF: [id number] supraspinatus tendinosis with articular surface fraying/tearing measuring up to 1.0 cm in ML dimension. No full-thickness rotator cuff tendon tear. No muscle atrophy or fatty infiltration. BICEPS: Intact. CORACOACROMIAL ARCH: The undersurface of the acromion is flat with no subacromial spur. Mild acromioclavicular osteoarthritis. Mild fluid and edema within the subacromial-subdeltoid bursa consistent with mild bursitis. LABRUM/CAPSULE: No displaced sacral tear. Mild edema adjacent to the joint capsule which can be seen in the setting of adhesive capsulitis. GLENOHUMERAL JOINT/MARROW: Intact articular cartilage. Trace joint effusion. MR/MR shoulder RT wo con IMPRESSION: 1. [id number] supraspinatus tendinosis with articular surface fraying measuring 1.0 cm in ML dimension. No full-thickness rotator cuff tendon tear. 2. Edema adjacent to the joint capsule which can be seen in the setting of adhesive capsulitis. 3. Mild acromioclavicular osteoarthritis. 4. Mild subacromial-subdeltoid bursitis. 5. Trace glenohumeral joint effusion.
== END 2021-12-23 18:23 | disposition home or self-care (01) ==
LOC: HO.MRI 18:22
PROVIDERS: Visit Provider Physician Assistant
DX: M75.101 Unspecified rotator cuff tear or rupture of right shoulder, not specified as traumatic (principal)
CPT/HCPCS: 73221

== ENCOUNTER → 2022-02-20 08:52 | Outpatient (BNVA) | payer OTHER, SELFPAY | PROVIDERS: PCP Internal Medicine; Referring Provider Internal Medicine; Visit Provider Surgery | DX: L76.82 Other postprocedural complications of skin and subcutaneous tissue (principal) | CPT/HCPCS: 99202 ==

== ENCOUNTER → 2022-02-27 09:40 | Outpatient (BNVA) | payer OTHER, SELFPAY | PROVIDERS: PCP Internal Medicine; Visit Provider Physician Assistant | DX: M75.01 Adhesive capsulitis of right shoulder (principal) | CPT/HCPCS: 99212 ==

== ENCOUNTER 2022-03-18 11:05 | Outpatient (REF) | payer OTHER, SELFPAY ==
[2022-03-18 11:23] LABS: MANUAL DIFF FLAG NO
[2022-03-18 12:08] LABS: Basophils Percent Auto 0.5 % (0-2); Eosinophils Absolute Auto 0.1 X10*3/uL (0.0-0.4); Eosinophils Percent Auto 1.1 % (0-4); Hematocrit 39.6 % (37.0-47.0); Hemoglobin 12.9 g/dl (12.0-16.0); Imm Gran Abs Auto 0.01 X10*3/uL (0.00-0.03); Imm Gran Pct Auto 0.2 % (0.0-0.4); Lymphocytes Absolute Auto 2.1 X10*3/uL (1.2-4.9); Lymphocytes Percent Auto 36.8 % (20-40); Mean Corpuscular HGB Conc 32.6 g/dl (31.0-35.0); Mean Corpuscular Hemoglobin 29.2 pg (27.0-33.0); Mean Corpuscular Volume 89.6 fL (80.0-98.0); Mean Platelet Volume 10.1 fL (9.4-12.3); Monocytes Absolute Auto 0.3 X10*3/uL (0.1-1.2); Neutrophils Absolute Auto 3.2 x10*3/uL (2.0-8.3); Neutrophils Percent Auto 56.4 % (45-73); Platelet Count 266 X10*3/uL (160-400); Red Blood Count 4.42 X10*6/uL (4.20-5.50); Red Cell Distribution Width 13.1 % (11.0-16.0); White Blood Count 5.7 X10*3/uL (4.8-10.8)
[2022-03-18 12:51] LABS: Alanine Aminotransferase 32 U/L (0-31); Albumin Level 4.6 g/dL (3.5-5.0); Alkaline Phosphatase 86 U/L (39-117); Anion Gap 15 (12-20); Aspartate Amino Transferase 32 U/L (5-31); Bilirubin Total 0.4 mg/dL (0.0-1.0); Blood Urea Nitrogen 6 mg/dL (9-16); Calcium 9.5 mg/dL (8.4-10.2); Carbon Dioxide 27 mmol/L (22-29); Chloride 105 mmol/L (96-108); Cholesterol 260 mg/dL; Estimated Glomerular Filt Rate > 60; Glucose Fasting 98 mg/dL (60-99); HDL Cholesterol 54 mg/dL; LDL Cholesterol Calculated 182 mg/dl; Potassium 3.7 mmol/L (3.3-5.1); Sodium 143 mmol/L (135-145); Total Protein 7.4 g/dL (6.5-8.0); Triglycerides 120 mg/dL
[2022-03-18 12:54] LABS: Vitamin D 25-OH Total 53.1 ng/mL (>30)
== END 2022-03-18 11:06 | disposition home or self-care (01) ==
LOC: HO.LAB 11:05
PROVIDERS: PCP Internal Medicine; Visit Provider Internal Medicine
DX: D64.9 Anemia, unspecified (principal); R42 Dizziness and giddiness; E55.9 Vitamin D deficiency, unspecified; E78.5 Hyperlipidemia, unspecified; G43.909 Migraine, unspecified, not intractable, without status migrainosus
CPT/HCPCS: 36415; 80053; 80061; 82306; 85025

== ENCOUNTER 2022-04-15 15:09 | Emergency (ER) | payer OTHER, SELFPAY ==
--- NOTE | ~2022-04-15 | CT_ITS ---
EXAMINATION: CT ABDOMEN AND PELVIS WITHOUT CONTRAST CLINICAL INFORMATION: Left flank pain. History of stone. COMPARISON: CT abdomen and pelvis 05/06/2018 TECHNIQUE: Multidetector volumetric imaging was performed from the superior aspect of the liver through the pubic symphysis. Sagittal and coronal reformatted images were obtained on the technologist's workstation. This CT examination was performed using dose optimization techniques as appropriate, variously including the following: *Automated exposure control *Adjustment of mA and/or kV according to patient size (this includes techniques or standardized protocols for targeted exams where dose is matched to indication/reason for exam; i.e. extremities or head) *Use of iterative reconstruction technique DLP: 465 mGy-cm FINDINGS: LUNG BASES: The visualized lung bases are unremarkable. LIVER, GALLBLADDER, AND BILIARY TREE: Subcentimeter hypodense probable cyst in the posterior segment right liver lobe, unchanged. No new liver lesion. Normal hepatic attenuation. No biliary ductal dilation. The gallbladder is unremarkable with no evidence of radiopaque gallstones, gallbladder wall thickening, or obvious pericholecystic inflammatory changes. PANCREAS: Unremarkable. SPLEEN: Unremarkable. ADRENAL GLANDS: Unremarkable. KIDNEYS AND URETERS: No radiodense urinary tract calculi. No hydronephrosis. Subcentimeter hypodense probable cyst in the anterior left mid to lower pole, too small to characterize. No further follow-up recommended. No other renal lesion identified. No perinephric stranding. BLADDER: Decompressed limiting assessment, but grossly unremarkable. GASTROINTESTINAL TRACT: Sigmoid diverticulosis. No evidence of acute diverticulitis. No dilated bowel loops. No bowel wall thickening. Status post appendectomy. Surgical clips at the cecal base. No ascites or free air. ABDOMINAL WALL: Tiny fat-containing umbilical/periumbilical hernia. LYMPH NODES: No lymphadenopathy. VASCULAR: Normal caliber abdominal aorta. PELVIC VISCERA: Gynecologic structures grossly unremarkable limited assessment. OSSEOUS STRUCTURES: No acute fracture or suspicious osseous lesion. CT/CT abdomen pelvis wo IV con IMPRESSION: 1. No radiodense urinary tract calculi. No hydronephrosis. 2. No acute intra-abdominal process. 3. Sigmoid diverticulosis. No evidence of acute diverticulitis.
[2022-04-15 18:16] VITALS: BP 132/84; PULSE 74; RESP 20; TEMP 36.7; O2SAT 95; BMI 23.1
--- NOTE | 2022-04-15 18:18 | ED_ITS ---
HPI - Female Genitourinary General Chief complaint: Urogenital-Female <Kelly Wylie MD - Last Filed: 04/15/22 18:19> Stated complaint: Frequent Urination Pain <Kelly Wylie MD - Last Filed: 04/15/22 18:19> Time Seen by Provider: 04/15/22 20:53 <Kelly Wylie MD - Last Filed: 04/15/22 18:19> Source: patient <Nando Aguila MD - Last Filed: 04/15/22 23:42> Mode of arrival: ambulatory <Nando Aguila MD - Last Filed: 04/15/22 23:42> Limitations: no limitations <Nando Aguila MD - Last Filed: 04/15/22 23:42> History of Present Illness HPI Narrative: Patient history of kidney stone noticed pain in the left flank with dysuria and frequency low-grade fever and nausea vomiting now feels pain in suprapubic area with urgency to urinate. No diarrhea no abdominal distension no blood in the stool <Nando Aguila MD - Last Filed: 04/15/22 23:42> Related Data Home medications: Home Medications Medication Instructions Recorded Confirmed duloxetine 20 mg capsule,delayed 20 mg PO DAILY 03/21/21 03/17/22 release hydroxyzine HCl 25 mg tablet 25 mg PO BID 03/21/21 03/17/22 propranolol 10 mg tablet 10 mg PO DAILY 03/21/21 03/17/22 Previous Rx's Medication Instructions Recorded acetaminophen 500 mg tablet 1,000 mg PO QID PRN pain #30 tabs 11/16/21 ibuprofen 800 mg tablet 800 mg PO Q8H PRN pain #30 tabs 11/16/21 lidocaine 5 % topical patch 1 patch topical DAILY PRN Right 11/16/21 shoulder pain #30 ea meclizine 25 mg tablet 25 mg PO TID PRN motion sickness 02/11/22 #30 tabs atorvastatin 20 mg tablet 20 mg PO DAILY 90 days #90 tabs 03/17/22 cefuroxime axetil 250 mg tablet 250 mg PO BID 7 days #14 tabs 04/15/22 phenazopyridine 200 mg tablet 200 mg PO TID 2 days #6 tabs 04/15/22 (Pyridium) <Kelly Wylie MD - Last Filed: 04/15/22 18:19> Allergies/Adverse reactions: Allergies Allergy/AdvReac Type Severity Reaction Status Date / Time Cortisone Allergy Intermediate redness, Uncoded 03/17/22 10:15 hives, rash, swelling <Kelly Wylie MD - Last Filed: 04/15/22 18:19> Review of Systems Review of Systems: Yes all other systems are reviewed and are negative <Nando Aguila MD - Last Filed: 04/15/22 23:42> FOR[facility]LY [facility] Past Medical History Medical History: Medical History Anxiety Depression Incisional pain Migraines Mild recurrent major depression Plantar fasciitis Right shoulder pain Vertigo <Kelly Wylie MD - Last Filed: 04/15/22 18:19> Surgical History: Surgical History History of appendectomy Hx of tubal ligation S/P hernia surgery <Kelly Wylie MD - Last Filed: 04/15/22 18:19> Family History Family History: Family History Mother Mental health disorder Dementia Maternal Aunt Mental health disorder Breast cancer Ovarian cancer Maternal Grandmother Mental health disorder Father Substance use disorder Asthma Maternal Aunt Uterine cancer <Kelly Wylie MD - Last Filed: 04/15/22 18:19> Social History Social History: Social History Housing: Apartment Alcohol intake: never Patient Tobacco Use Status: Former Tobacco user Tobacco use type: Cigarette Smoked in Last 30 Days: No e-Cigarette/Vaping Use: Never Used Second Hand Smoke Exposure: No Use of substances other than those prescribed or required for medical reasons: No Advance Directives: No Advance Directives Information Provided: No Patient : No service: No Current occupational status: unemployed 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 Cognitive needs: No Hearing needs: No Vision needs: No <Kelly Wylie MD - Last Filed: 04/15/22 18:19> Physical Exam Vital Signs: Vital Signs: Last Vital Signs Temp 98.0 F 04/15/22 22:00 Pulse 67 04/15/22 22:00 Resp 16 04/15/22 22:00 BP 118/78 04/15/22 22:00 Pulse Ox 98 04/15/22 22:00 O2 Del Method 04/15/22 22:00 BMI result Body Mass Index 23.1 <Kelly Wylie MD - Last Filed: 04/15/22 18:19> Vital Signs: Last Vital Signs Temp 98.0 F 04/15/22 22:00 Pulse 67 04/15/22 22:00 Resp 16 04/15/22 22:00 BP 118/78 04/15/22 22:00 Pulse Ox 98 04/15/22 22:00 O2 Del Method 04/15/22 22:00 BMI result Body Mass Index 23.1 <Nando Aguila MD - Last Filed: 04/15/22 23:42> Appearance: Alert. Oriented X3. In mild distress Eyes: No pallor or icterus ENT: Pharynx normal. Oral Mucosa moist Neck: Normal inspection. Neck supple. CVS: Normal heart rate and rhythm. Pulses normal. Respiratory: No respiratory distress. Equal air entry bilateral, no wheezing/rales/rhonchi Abdomen: Soft and nontender. Bowel sounds are present, no mass palpable, left CVA tenderness ++ Skin: Skin warm and dry. Normal skin color. Normal skin turgor. Extremities: No lower extremity edema. No calf tenderness Neuro: Oriented X 3. No motor deficit. <Nando Aguila MD - Last Filed: 04/15/22 23:42> Course Reevaluation(s) Reevaluation #1: 56-year-old female came in for evaluation of possible cystitis, with urinary frequency and suprapubic pain, feeling nauseous with no vomiting, low back pain. <Kelly Wylie MD - Last Filed: 04/15/22 18:19> Time: 18:18 <Kelly Wylie MD - Last Filed: 04/15/22 18:19> Medications Administered Discontinued Medications Generic Name Dose Route Start Last Admin Trade Name Freq PRN Reason Stop Dose Admin Cefuroxime Axetil 250 mg 04/15/22 22:56 04/15/22 23:31 Cefuroxime Axetil 250 Mg Tablet PO 04/15/22 22:57 250 mg ONCE ONE Administration Ibuprofen 600 mg 04/15/22 18:16 04/15/22 18:26 Ibuprofen 600 Mg Tablet PO 04/15/22 18:17 600 mg ONCE ONE Administration Ketorolac Tromethamine 30 mg 04/15/22 20:59 04/15/22 21:40 Ketorolac Tromethamine 30 Mg/Ml Vial IVPUSH 04/15/22 21:00 30 mg ONCE ONE Administration Ondansetron HCl 4 mg 04/15/22 18:16 04/15/22 18:26 Ondansetron Odt 4 Mg Tab.Rapdis TRANSLINGU 04/15/22 18:17 4 mg ONCE ONE Administration Ondansetron HCl 4 mg 04/15/22 20:59 04/15/22 21:40 Ondansetron Hcl 4 Mg/2 Ml Vial IVPUSH 04/15/22 21:00 4 mg ONCE ONE Administration Phenazopyridine HCl 200 mg 04/15/22 22:56 04/15/22 23:31 Phenazopyridine Hcl 200 Mg Tablet PO 04/15/22 22:57 200 mg ONCE ONE Administration <Kelly Wylie MD - Last Filed: 04/15/22 18:19> Medications Administered Discontinued Medications Generic Name Dose Route Start Last Admin Trade Name Karelq PRN Reason Stop Dose Admin Cefuroxime Axetil 250 mg 04/15/22 22:56 04/15/22 23:31 Cefuroxime Axetil 250 Mg Tablet PO 04/15/22 22:57 250 mg ONCE ONE Administration Ibuprofen 600 mg 04/15/22 18:16 04/15/22 18:26 Ibuprofen 600 Mg Tablet PO 04/15/22 18:17 600 mg ONCE ONE Administration Ketorolac Tromethamine 30 mg 04/15/22 20:59 04/15/22 21:40 Ketorolac Tromethamine 30 Mg/Ml Vial IVPUSH 04/15/22 21:00 30 mg ONCE ONE Administration Ondansetron HCl 4 mg 04/15/22 18:16 04/15/22 18:26 Ondansetron Odt 4 Mg Tab.Rapdis TRANSLINGU 04/15/22 18:17 4 mg ONCE ONE Administration Ondansetron HCl 4 mg 04/15/22 20:59 04/15/22 21:40 Ondansetron Hcl 4 Mg/2 Ml Vial IVPUSH 04/15/22 21:00 4 mg ONCE ONE Administration Phenazopyridine HCl 200 mg 04/15/22 22:56 04/15/22 23:31 Phenazopyridine Hcl 200 Mg Tablet PO 04/15/22 22:57 200 mg ONCE ONE Administration <Nando Aguila MD - Last Filed: 04/15/22 23:42> MDM - Female Genitourinary MDM Narrative Medical decision making narrative: Patient's CT scan negative for kidney stone showed leukoestrase +ve, few wbc's although no bacteria patient is symptomatic will treat as UTI/cystitis with Ceftin <Nando Aguila MD - Last Filed: 04/15/22 23:42> Lab Data Attestation: I reviewed the patient's lab results. <Nando Aguila MD - Last Filed: 04/15/22 23:42> Result diagrams: : 04/15/22 21:18 04/15/22 21:18 <Kelly Wylie MD - Last Filed: 04/15/22 18:19> Labs: Lab Results 04/15/22 04/15/22 04/15/22 Range/Units 18:26 18:26 21:18 WBC (4.8-10.8) X10*3/uL RBC (4.20-5.50) X10*6/uL Hgb (12.0-16.0) g/dl Hct (37.0-47.0) % MCV (80.0-98.0) fL MCH (27.0-33.0) pg MCHC (31.0-35.0) g/dl RDW (11.0-16.0) % Plt Count (160-400) X10*3/uL MPV (9.4-12.3) fL Immature Gran % (Auto) (0.0-0.4) % Neut % (Auto) (45-73) % Lymph % (Auto) (20-40) % [place] % (Auto) (2-11) % Eos % (Auto) (0-4) % Baso % (Auto) (0-2) % Lymph # (Auto) (1.2-4.9) X10*3/uL [place] # (Auto) (0.1-1.2) X10*3/uL Eos # (Auto) (0.0-0.4) X10*3/uL Baso # (Auto) (0.0-0.2) X10*3/uL Abs Immat Gran (auto) (0.00-0.03) X10*3/uL Absolute Neuts (auto) (2.0-8.3) x10*3/uL Absolute Nucleated RBC (0.0-0.012) X10*3/uL Nucleated RBC % (auto) (0.0-0.2) /100WBC Sodium 143 (135-145) mmol/L Potassium 4.2 (3.3-5.1) mmol/L Chloride 107 (96-108) mmol/L Carbon Dioxide 25 (22-29) mmol/L Anion Gap 15 (12-20) BUN 7 L (9-16) mg/dL Creatinine 0.71 (0.5-1.4) mg/dL Estim Creat Clear Calc 76.3 Estimated GFR > 60 Random Glucose 116 H (60-115) mg/dL Calcium 9.8 (8.4-10.2) mg/dL Urine Color Dark Yellow Urine Appearance Cloudy Urine pH 5.5 (5.0-9.0) Ur Specific [place] 1.025 (1.005-1.025) Urine Protein Negative (Neg-Trace) mg/dL Urine Glucose (UA) Negative (Negative) mg/dL Urine Ketones Trace (Negative) mg/dL Urine Blood Negative (Negative) Urine Nitrite Negative (Negative) Ur Leukocyte Esterase Small (1+) H (Negative) Urine RBC 0-2 (0-2) /HPF Urine WBC 6-10 (0-5) /HPF Ur Squamous Epith Cells 6-10 (0-2) /HPF Calcium Oxalate Crystal Present Urine Bacteria None Seen (None Seen) Hyaline Casts 0-2 (0-2) /LPF Urine Test NEGATIVE (NEGATIVE) 04/15/22 Range/Units 21:18 WBC 7.0 (4.8-10.8) X10*3/uL RBC 4.64 (4.20-5.50) X10*6/uL Hgb 13.7 (12.0-16.0) g/dl Hct 42.0 (37.0-47.0) % MCV 90.5 (80.0-98.0) fL MCH 29.5 (27.0-33.0) pg MCHC 32.6 (31.0-35.0) g/dl RDW 13.3 (11.0-16.0) % Plt Count 293 (160-400) X10*3/uL MPV 9.7 (9.4-12.3) fL Immature Gran % (Auto) 0.1 (0.0-0.4) % Neut % (Auto) 45.9 (45-73) % Lymph % (Auto) 45.5 H (20-40) % [place] % (Auto) 6.7 (2-11) % Eos % (Auto) 1.4 (0-4) % Baso % (Auto) 0.4 (0-2) % Lymph # (Auto) 3.2 (1.2-4.9) X10*3/uL [place] # (Auto) 0.5 (0.1-1.2) X10*3/uL Eos # (Auto) 0.1 (0.0-0.4) X10*3/uL Baso # (Auto) 0.0 (0.0-0.2) X10*3/uL Abs Immat Gran (auto) 0.01 (0.00-0.03) X10*3/uL Absolute Neuts (auto) 3.2 (2.0-8.3) x10*3/uL Absolute Nucleated RBC 0.000 (0.0-0.012) X10*3/uL Nucleated RBC % (auto) 0.0 (0.0-0.2) /100WBC Sodium (135-145) mmol/L Potassium (3.3-5.1) mmol/L Chloride (96-108) mmol/L Carbon Dioxide (22-29) mmol/L Anion Gap (12-20) BUN (9-16) mg/dL Creatinine (0.5-1.4) mg/dL Estim Creat Clear Calc Estimated GFR Random Glucose (60-115) mg/dL Calcium (8.4-10.2) mg/dL Urine Color Urine Appearance Urine pH (5.0-9.0) Ur Specific [place] (1.005-1.025) Urine Protein (Neg-Trace) mg/dL Urine Glucose (UA) (Negative) mg/dL Urine Ketones (Negative) mg/dL Urine Blood (Negative) Urine Nitrite (Negative) Ur Leukocyte Esterase (Negative) Urine RBC (0-2) /HPF Urine WBC (0-5) /HPF Ur Squamous Epith Cells (0-2) /HPF Calcium Oxalate Crystal Urine Bacteria (None Seen) Hyaline Casts (0-2) /LPF Urine Test (NEGATIVE) <Kelly Wylie MD - Last Filed: 04/15/22 18:19> Lab Results 04/15/22 04/15/22 04/15/22 Range/Units 18:26 18:26 21:18 WBC (4.8-10.8) X10*3/uL RBC (4.20-5.50) X10*6/uL Hgb (12.0-16.0) g/dl Hct (37.0-47.0) % MCV (80.0-98.0) fL MCH (27.0-33.0) pg MCHC (31.0-35.0) g/dl RDW (11.0-16.0) % Plt Count (160-400) X10*3/uL MPV (9.4-12.3) fL Immature Gran % (Auto) (0.0-0.4) % Neut % (Auto) (45-73) % Lymph % (Auto) (20-40) % [place] % (Auto) (2-11) % Eos % (Auto) (0-4) % Baso % (Auto) (0-2) % Lymph # (Auto) (1.2-4.9) X10*3/uL [place] # (Auto) (0.1-1.2) X10*3/uL Eos # (Auto) (0.0-0.4) X10*3/uL Baso # (Auto) (0.0-0.2) X10*3/uL Abs Immat Gran (auto) (0.00-0.03) X10*3/uL Absolute Neuts (auto) (2.0-8.3) x10*3/uL Absolute Nucleated RBC (0.0-0.012) X10*3/uL Nucleated RBC % (auto) (0.0-0.2) /100WBC Sodium 143 (135-145) mmol/L Potassium 4.2 (3.3-5.1) mmol/L Chloride 107 (96-108) mmol/L Carbon Dioxide 25 (22-29) mmol/L Anion Gap 15 (12-20) BUN 7 L (9-16) mg/dL Creatinine 0.71 (0.5-1.4) mg/dL Estim Creat Clear Calc 76.3 Estimated GFR > 60 Random Glucose 116 H (60-115) mg/dL Calcium 9.8 (8.4-10.2) mg/dL Urine Color Dark Yellow Urine Appearance Cloudy Urine pH 5.5 (5.0-9.0) Ur Specific [place] 1.025 (1.005-1.025) Urine Protein Negative (Neg-Trace) mg/dL Urine Glucose (UA) Negative (Negative) mg/dL Urine Ketones Trace (Negative) mg/dL Urine Blood Negative (Negative) Urine Nitrite Negative (Negative) Ur Leukocyte Esterase Small (1+) H (Negative) Urine RBC 0-2 (0-2) /HPF Urine WBC 6-10 (0-5) /HPF Ur Squamous Epith Cells 6-10 (0-2) /HPF Calcium Oxalate Crystal Present Urine Bacteria None Seen (None Seen) Hyaline Casts 0-2 (0-2) /LPF Urine Test NEGATIVE (NEGATIVE) 04/15/22 Range/Units 21:18 WBC 7.0 (4.8-10.8) X10*3/uL RBC 4.64 (4.20-5.50) X10*6/uL Hgb 13.7 (12.0-16.0) g/dl Hct 42.0 (37.0-47.0) % MCV 90.5 (80.0-98.0) fL MCH 29.5 (27.0-33.0) pg MCHC 32.6 (31.0-35.0) g/dl RDW 13.3 (11.0-16.0) % Plt Count 293 (160-400) X10*3/uL MPV 9.7 (9.4-12.3) fL Immature Gran % (Auto) 0.1 (0.0-0.4) % Neut % (Auto) 45.9 (45-73) % Lymph % (Auto) 45.5 H (20-40) % [place] % (Auto) 6.7 (2-11) % Eos % (Auto) 1.4 (0-4) % Baso % (Auto) 0.4 (0-2) % Lymph # (Auto) 3.2 (1.2-4.9) X10*3/uL [place] # (Auto) 0.5 (0.1-1.2) X10*3/uL Eos # (Auto) 0.1 (0.0-0.4) X10*3/uL Baso # (Auto) 0.0 (0.0-0.2) X10*3/uL Abs Immat Gran (auto) 0.01 (0.00-0.03) X10*3/uL Absolute Neuts (auto) 3.2 (2.0-8.3) x10*3/uL Absolute Nucleated RBC 0.000 (0.0-0.012) X10*3/uL Nucleated RBC % (auto) 0.0 (0.0-0.2) /100WBC Sodium (135-145) mmol/L Potassium (3.3-5.1) mmol/L Chloride (96-108) mmol/L Carbon Dioxide (22-29) mmol/L Anion Gap (12-20) BUN (9-16) mg/dL Creatinine (0.5-1.4) mg/dL Estim Creat Clear Calc Estimated GFR Random Glucose (60-115) mg/dL Calcium (8.4-10.2) mg/dL Urine Color Urine Appearance Urine pH (5.0-9.0) Ur Specific [place] (1.005-1.025) Urine Protein (Neg-Trace) mg/dL Urine Glucose (UA) (Negative) mg/dL Urine Ketones (Negative) mg/dL Urine Blood (Negative) Urine Nitrite (Negative) Ur Leukocyte Esterase (Negative) Urine RBC (0-2) /HPF Urine WBC (0-5) /HPF Ur Squamous Epith Cells (0-2) /HPF Calcium Oxalate Crystal Urine Bacteria (None Seen) Hyaline Casts (0-2) /LPF Urine Test (NEGATIVE) <Nando Aguila MD - Last Filed: 04/15/22 23:42> Discharge Plan Discharge Clinical Impression: Cystitis <Kelly Wylie MD - Last Filed: 04/15/22 18:19> Patient Disposition: Home, Self-Care <Kelly Wylie MD - Last Filed: 04/15/22 18:19> Instructions: Urinary Tract Infection in Women (ED) <Kelly Wylie MD - Last Filed: 04/15/22 18:19> Additional Instructions: Drink plenty of fluids You might have slight infection the urine not very clear Antibiotics as advised Follow with PCP if not better <Kelly Wylie MD - Last Filed: 04/15/22 18:19> Prescriptions: New cefuroxime axetil 250 mg tablet 250 mg PO BID 7 Days Qty: 14 0RF phenazopyridine [Pyridium] 200 mg tablet 200 mg PO TID 2 Days Qty: 6 0RF No Action atorvastatin 20 mg tablet 20 mg PO DAILY 90 Days Qty: 90 1RF acetaminophen 500 mg tablet 1,000 mg PO QID PRN (Reason: pain) Qty: 30 0RF ibuprofen 800 mg tablet 800 mg PO Q8H PRN (Reason: pain) Qty: 30 0RF lidocaine 5 % adhesive patch,medicated 1 patch topical DAILY PRN (Reason: Right shoulder pain) Qty: 30 0RF Rx Instructions: leave on most painful area for up to 12 hrs duloxetine 20 mg capsule,delayed release(DR/EC) 20 mg PO DAILY propranolol 10 mg tablet 10 mg PO DAILY hydroxyzine HCl 25 mg tablet 25 mg PO BID meclizine 25 mg tablet 25 mg PO TID PRN (Reason: motion sickness) Qty: 30 0RF <Kelly Wylie MD - Last Filed: 04/15/22 18:19> Interventions: ED Discharge Assessment Last Done: 04/15/22 23:37 <Kelly Wylie MD - Last Filed: 04/15/22 18:19> Discharge Date/Time: 04/15/22 23:39 <Kelly Wylie MD - Last Filed: 04/15/22 18:19>
[2022-04-15] MEDS: Ondansetron ODT 4 MG TAB.RAPDIS TRANSLINGU (18:26)
[2022-04-15] MEDS: Ibuprofen 600 MG TABLET PO (18:26)
[2022-04-15 18:33] LABS: Appearance Urine Cloudy; Color Urine Dark Yellow; Glucose Urine UA Negative (Negative); Leukocyte Esterase Urine Small (1+) (Negative); Nitrite Urine Negative (Negative); PH 5.5 (5.0-9.0); Specific Gravity - Urine 1.025 (1.005-1.025); UMIC TRIGGER UACC YES; Urine Blood Negative (Negative); Urine Ketones Trace mg/dL (Negative); Urine Protein Negative (Neg-Trace)
[2022-04-15 18:34] LABS: UPreg QC Valid YES; Urine Pregnancy NEGATIVE (NEGATIVE)
[2022-04-15 18:46] LABS: Bacteria Urine None Seen (None Seen); Calcium Oxalate Crystals Urine Present; Hyaline Casts Urine 0-2 /LPF (0-2); RBC Urine 0-2 /HPF (0-2); UACC Culture Trigger YES
[2022-04-15 20:30] VITALS: BP 123/74; PULSE 64; RESP 18; TEMP 36.6; O2SAT 99
[2022-04-15 21:14] VITALS: BP 136/105; PULSE 69; RESP 16; TEMP 36.8; O2SAT 98
--- NOTE | 2022-04-15 21:19 | PC.NURSE ---
THIS PCT ASSUMED CARE OF PT AT THIS TIME ,BLOOD DRAWN AND SEND TO LAB ,VITALS SIGN TAKEN AND WARM BLANKETS GIVEN TO PATIENT ,PT WATCHING TELEVISION ,CALL ESQUIVEL WITHIN REACH .
[2022-04-15 21:26] LABS: MANUAL DIFF FLAG NO
[2022-04-15 21:29] LABS: Basophils Percent Auto 0.4 % (0-2); Eosinophils Absolute Auto 0.1 X10*3/uL (0.0-0.4); Eosinophils Percent Auto 1.4 % (0-4); Hemoglobin 13.7 g/dl (12.0-16.0); Imm Gran Abs Auto 0.01 X10*3/uL (0.00-0.03); Imm Gran Pct Auto 0.1 % (0.0-0.4); Lymphocytes Absolute Auto 3.2 X10*3/uL (1.2-4.9); Lymphocytes Percent Auto 45.5 % (20-40); Mean Corpuscular HGB Conc 32.6 g/dl (31.0-35.0); Mean Corpuscular Hemoglobin 29.5 pg (27.0-33.0); Mean Corpuscular Volume 90.5 fL (80.0-98.0); Mean Platelet Volume 9.7 fL (9.4-12.3); Monocytes Absolute Auto 0.5 X10*3/uL (0.1-1.2); Monocytes Percent Auto 6.7 % (2-11); Neutrophils Absolute Auto 3.2 x10*3/uL (2.0-8.3); Neutrophils Percent Auto 45.9 % (45-73); Platelet Count 293 X10*3/uL (160-400); Red Blood Count 4.64 X10*6/uL (4.20-5.50); Red Cell Distribution Width 13.3 % (11.0-16.0)
[2022-04-15] MEDS: ondansetron HCL 4 MG/2 ML VIAL IVPUSH (21:40)
[2022-04-15] MEDS: Ketorolac Tromethamine 30 MG/ML VIAL IVPUSH (21:40)
[2022-04-15 21:48] LABS: Anion Gap 15 (12-20); Blood Urea Nitrogen 7 mg/dL (9-16); Calcium 9.8 mg/dL (8.4-10.2); Carbon Dioxide 25 mmol/L (22-29); Chloride 107 mmol/L (96-108); Creatinine Clr Calc Pharmacy 76.3; Estimated Glomerular Filt Rate > 60; Glucose Random 116 mg/dL (60-115); Potassium 4.2 mmol/L (3.3-5.1); Sodium 143 mmol/L (135-145)
[2022-04-15 22:00] VITALS: BP 118/78; PULSE 67; RESP 16; TEMP 36.7; O2SAT 98
[2022-04-15] MEDS: Phenazopyridine HCL 200 MG TABLET PO (23:31)
== END 2022-04-15 23:39 | disposition home or self-care (01) ==
PROVIDERS: Emergency Medicine; Emergency Provider Internal Medicine; PCP Internal Medicine
DX: N30.90 Cystitis, unspecified without hematuria (principal); R35.0 Frequency of micturition; R30.0 Dysuria; Z79.899 Other long term (current) drug therapy; Z87.891 Personal history of nicotine dependence
CPT/HCPCS: 36415; 74176; 80048; 81001; 81025; 85025; 87086; 96374; 96375; 99284; J1885; J2405

== ENCOUNTER 2022-04-16 11:00 | Outpatient (RCR) | payer OTHER, SELFPAY ==
--- NOTE | 2022-03-12 10:30 | MHC.PT.EP ---
[facility] [place] [facility] [place] [facility] [place] [facility] [address] [phone] F: [phone] F: [phone] F: [phone] F: [phone] Physical Therapy Plan of Care Date of Evaluation: Date of Surgery: Diagnosis: R shoulder adhesive capsulitis Assessment: Patient is a pleasant 56 y.o female referred to PT with dx of R shoulder adhesive capsulitis. She presents with pain, limited ROM, weakness and impaired functional mobility; putting on clothes, cooking, cleaning, reaching, doing her hair. She will benefit from skilled physical therapy to address aforementioned impairments and restore functional mobility to complete ADLs. Frequency and Duration: The patient will be seen 2x/week for 4 weeks Short Term Goals: 2 weeks Patient demonstrates consistency and independence with HEP to self manage chronic symptoms. Patient presents with increased R shoulder IR 40 degrees to reach behind her back to tuck in shirt. Mcc Goals: 4 weeks Patient presents with increased R shoulder flexion 155 degrees to reach overhead to cabinet at home. Patient presents with increased R shoulder ER 45 degrees to put on undershirts. Treatment Plan: Modalities to reduce pain, spasms and effusion. Manual therapy to restore motion and function. Therapeutic exercise to improve strength and flexibility. Neuromuscular re-education for posture and balance. Therapeutic activities to return to functional activities of daily living. Electronically signed by: Christa Rivas, PT, DPT Please sign and return to therapist. Thank you for your referral.
--- NOTE | 2022-04-30 17:54 | MHC.PT.DC ---
[facility] [place] [facility] [place] [facility] [place] [facility] [address] Tammy Henderson [address] [phone] F: [phone] F: [phone] F: [phone] F: [phone] Physical Therapy Discharge Report Diagnosis: R shoulder adhesive capsulitis Date of Surgery: Date of Evaluation: 03/12/22 Date of Discharge: 04/30/22 Treatments to Date: 9 Cancellations to Date: 3 No Shows to Date: 0 Discharge Status: Improved Function Independent with HEP Patient Elected to Stop Discharge Summary: The patient had one remaining scheduled visit but called to cancel and did not reschedule. She was reporting an improvement in her shoulder pain and was slowly but consistently regaining her range of motion. She is independent with her home exercise program and has the therabands to perform at home. She is discharged from this physical therapy plan of care as she has not followed up with any additional appointments in two weeks. Electronically signed by: Edita Tejeda PT, DPT Please sign and return to therapist. Thank you for your referral.
== END 2022-04-30 17:54 | disposition home or self-care (01) ==
LOC: HO.PT 11:00
PROVIDERS: PCP Internal Medicine; Visit Provider Physician Assistant
DX: M75.01 Adhesive capsulitis of right shoulder (principal)
CPT/HCPCS: 97110; 97140; 97150; 97161; 97530

== ENCOUNTER 2022-04-28 08:44 | Outpatient (REF) | payer OTHER, SELFPAY ==
--- NOTE | ~2022-04-28 | MM_ITS ---
EXAMINATION: MM SCREENING DIGITAL BREAST TOMOSYNTHESIS, BILATERAL CLINICAL INFORMATION: Screening. Asymptomatic. The lifetime risk of breast cancer based on the Tyrer-Cuzick Model is 16%. COMPARISON: Mammography: 04/19/2021, 09/22/2018, 08/10/2017 TECHNIQUE: Digital breast tomosynthesis is performed in both the craniocaudal and mediolateral oblique views along with computer-aided detection (CAD). Synthesized 2D images are generated from the tomosynthesis. FINDINGS: There are scattered areas of fibroglandular density (ACR BI-RADS breast composition Category b). There are no significant masses, abnormal calcifications, or other abnormalities. Parenchymal pattern is similar to prior studies. There is a dermal lesion again seen overlying posterior 7:00 left breast. No architectural abnormality. The axilla are unremarkable. No significant changes. MM/MM tomosynthesis screening BI IMPRESSION: No mammographic evidence of malignancy. ASSESSMENT: BI-RADS 2: Benign RECOMMENDATION: Routine annual mammography screening. This patient's information was entered into a reminder system with a target due date for their next mammogram.
== END 2022-04-28 08:45 | disposition home or self-care (01) ==
LOC: HO.MAMMO 08:44
PROVIDERS: PCP Internal Medicine; Visit Provider Internal Medicine
DX: Z12.31 Encounter for screening mammogram for malignant neoplasm of breast (principal)
CPT/HCPCS: 77063; 77067

== ENCOUNTER 2022-06-18 09:32 | Emergency (ER) | payer OTHER, SELFPAY ==
--- NOTE | ~2022-06-18 | XR_ITS ---
EXAMINATION: XR CHEST CLINICAL INFORMATION: Shortness of breath COMPARISON: None TECHNIQUE: 2 views of the chest were obtained. FINDINGS: No significant abnormality is noted involving the heart, lungs, mediastinum, bony thorax or soft tissues. XR/XR chest 2V IMPRESSION: Unremarkable examination.
[2022-06-18 09:37] VITALS: BP 143/89; PULSE 74; RESP 19; TEMP 36.6; O2SAT 95; BMI 23.1
--- NOTE | 2022-06-18 09:40 | ECG_ITS ---
Test Reason : sob Blood Pressure : / mmHG Vent. Rate : 065 BPM Atrial Rate : 065 BPM P-R Int : 132 ms QRS Dur : 066 ms QT Int : 392 ms P-R-T Axes : 045 014 032 degrees QTc Int : 407 ms Normal sinus rhythm Normal ECG When compared to the previous EKG of No significant changes seen Referred By: Generic ED Physician Electronically Signed By:DWIGHT WAN MD
[2022-06-18 10:07] LABS: MANUAL DIFF FLAG NO
[2022-06-18 10:08] LABS: Basophils Percent Auto 0.5 % (0-2); Eosinophils Absolute Auto 0.1 X10*3/uL (0.0-0.4); Eosinophils Percent Auto 1.1 % (0-4); Hematocrit 42.2 % (37.0-47.0); Imm Gran Abs Auto 0.01 X10*3/uL (0.00-0.03); Imm Gran Pct Auto 0.2 % (0.0-0.4); Lymphocytes Absolute Auto 1.9 X10*3/uL (1.2-4.9); Lymphocytes Percent Auto 35.1 % (20-40); Mean Corpuscular HGB Conc 33.2 g/dl (31.0-35.0); Mean Corpuscular Hemoglobin 29.5 pg (27.0-33.0); Mean Platelet Volume 9.7 fL (9.4-12.3); Monocytes Absolute Auto 0.3 X10*3/uL (0.1-1.2); Monocytes Percent Auto 5.9 % (2-11); Neutrophils Absolute Auto 3.1 x10*3/uL (2.0-8.3); Neutrophils Percent Auto 57.2 % (45-73); Platelet Count 278 X10*3/uL (160-400); Red Blood Count 4.74 X10*6/uL (4.20-5.50); Red Cell Distribution Width 12.9 % (11.0-16.0); White Blood Count 5.5 X10*3/uL (4.8-10.8)
[2022-06-18 10:29] LABS: Anion Gap 9 (12-20); Blood Urea Nitrogen 4 mg/dL (9-16); Calcium 9.7 mg/dL (8.4-10.2); Carbon Dioxide 27 mmol/L (22-29); Chloride 108 mmol/L (96-108); Creatinine Clr Calc Pharmacy 83.4; Estimated Glomerular Filt Rate > 60; Glucose Random 101 mg/dL (60-115); Potassium 3.9 mmol/L (3.3-5.1); Sodium 140 mmol/L (135-145)
[2022-06-18 10:36] LABS: B Type Natriuretic Peptide 24 pg/mL (<100)
[2022-06-18 10:37] LABS: Troponin-I High Sensitivity 16.4 ng/L (<3.5-17.0)
[2022-06-18 10:49] LABS: Influenza A PCR NEGATIVE (Negative); Influenza B PCR NEGATIVE (Negative); Resp Syncy Virus RNA Qual PCR NEGATIVE (Negative); SARS COV2 PCR INHOUSE NEGATIVE (Negative)
--- NOTE | 2022-06-18 11:20 | ED.GENADULT ---
HPI - General Adult General Chief complaint: Upper Respiratory Symptoms Stated complaint: Chest pain/SOB/Chills Time Seen by Provider: 06/18/22 11:15 Source: patient Mode of arrival: ambulatory Limitations: no limitations History of Present Illness HPI narrative: Patient is a 56 year old assigned female at with a history of depression and anxiety presenting to the emergency department today with a cough and body aches. Patient states that since yesterday she has had a cough and body aches. Patient denies any dizziness, lightheadedness, abdominal pain, nausea, vomiting, blurry vision, double vision, loss of vision, chest pain, difficulty breathing, shortness of breath, back pain, night sweats, pain with urination, increased urinary frequency, increased urinary urgency, blood in her urine or stool, syncope or a near syncopal episode, recent trauma or falls, bowel incontinence, bladder incontinence, bowel retention, bladder retention, or any other complaints at this time. Onset (ago): day(s) (1) Severity: mild Severity scale (1-10): 2 Relieving factors: none Exacerbating factors: none Associated symptoms: cough Treatments prior to arrival: none Related Data Home Medications Medication Instructions Recorded Confirmed duloxetine 20 mg capsule,delayed 20 mg PO DAILY 03/21/21 03/17/22 release hydroxyzine HCl 25 mg tablet 25 mg PO BID 03/21/21 03/17/22 propranolol 10 mg tablet 10 mg PO DAILY 03/21/21 03/17/22 Previous Rx's Medication Instructions Recorded acetaminophen 500 mg tablet 1,000 mg PO QID PRN pain #30 tabs 11/16/21 ibuprofen 800 mg tablet 800 mg PO Q8H PRN pain #30 tabs 11/16/21 lidocaine 5 % topical patch 1 patch topical DAILY PRN Right 11/16/21 shoulder pain #30 ea meclizine 25 mg tablet 25 mg PO TID PRN motion sickness 02/11/22 #30 tabs atorvastatin 20 mg tablet 20 mg PO DAILY 90 days #90 tabs 03/17/22 cefuroxime axetil 250 mg tablet 250 mg PO BID 7 days #14 tabs 04/15/22 phenazopyridine 200 mg tablet 200 mg PO TID 2 days #6 tabs 04/15/22 (Pyridium) Allergies Allergy/AdvReac Type Severity Reaction Status Date / Time Cortisone Allergy Intermediate redness, Uncoded 06/18/22 09:36 hives, rash, swelling Review of Systems Constitutional: Constitutional: Reports no additional constitutional complaints, Denies chills, Denies fever(s) and Denies night sweats Eyes: Eyes: Reports no additional eye complaints, Denies blurry vision, Denies change in vision, Denies diplopia, Denies eye discharge, Denies loss of vision and Denies eye pain ENT: Denies dizziness Cardiovascular: Cardiovascular: Reports no additional cardiovascular complaints, Denies chest pain, Denies lightheadedness, Denies Loss of Consciousness and Denies dyspnea Respiratory: Respiratory: Reports no additional respiratory complaints, Reports cough and Denies dyspnea Gastrointestinal: Gastrointestinal: Reports no additional gastrointestinal complaints, Denies abdominal pain, Denies melena, Denies hematochezia, Denies change in bowel habits and Denies change in stool character Genitourinary: Genitourinary: Denies hematuria, Denies urinary frequency, Denies dysuria, Denies urinary incontinence, Denies urinary hesitancy and Denies urinary urgency Musculoskeletal: Musculoskeletal: Reports no additional musculoskeletal complaints, Denies numbness and Denies tingling Neurologic: Denies dizziness, Denies loss of vision, Denies numbness and Denies tingling Psychiatric: Psychiatric: Reports no additional psychiatric complaints Endocrine: Endocrine: Reports no additional endocrine complaints Hematologic/Lymphatic: Hematologic/Lymphatic: Reports no additional hematologic/lymphatic complaints Allergic/Immunologic: Allergic/Immunologic: Reports no additional allergic/immunologic complaints [facility] Past Medical History Attestation statement: The following information was validated with the patient. Source: old records reviewed and nursing notes reviewed Medical History Anxiety Depression Incisional pain Migraines Mild recurrent major depression Plantar fasciitis Right shoulder pain Vertigo Surgical History History of appendectomy Hx of tubal ligation S/P hernia surgery Family History Family History Mother Mental health disorder Dementia Maternal Aunt Mental health disorder Breast cancer Ovarian cancer Maternal Grandmother Mental health disorder Father Substance use disorder Asthma Maternal Aunt Uterine cancer Social History Social History Housing: Apartment Alcohol intake: never Patient Tobacco Use Status: Former Tobacco user Tobacco use type: Cigarette e-Cigarette/Vaping Use: Never Used Second Hand Smoke Exposure: No Advance Directives: No Advance Directives Information Provided: Yes service: No Current occupational status: unemployed 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 Cognitive needs: No Hearing needs: No Vision needs: No Physical Exam ED Vital Signs: Vital Signs - 24 hr 06/18/22 09:37 Temperature 98 F Pulse Rate 74 Respiratory Rate 19 Blood Pressure 143/89 H Pulse Oximetry 95 Oxygen Delivery Method Room Air BMI result Body Mass Index 23.1 Const General: cooperative, no acute distress, alert and awake Nutritional Appearance: well nourished Orientation/consciousness: patient oriented x3 Limitations: no limitations HENMT Head: Yes normal to inspection and Yes atraumatic Ears: hearing grossly normal bilaterally and external ears normal General nose exam: Normal external nose present, no nasal discharge noted and no epistaxis Face and sinus: Yes normal facial exam, No abrasion and No laceration Mouth: Normal oral and palatal mucosa present, no drooling and no muffled voice Eyes General: appearance normal, both eyes and all related structures Periorbital: periorbital findings normal Eyelids: Yes eyelids normal Conjunctivae: conjunctivae normal Pupils: Equal, round and reactive pupils present EOM: EOMs intact bilaterally Neck Neck: Yes normal visual inspection, Yes full ROM and Yes no lymphadenopathy Chest Chest palpation & inspection: normal inspection of the chest Resp Effort & Inspection: normal respiratory effort, able to speak in complete sentences and Actively coughing Cardio Rate: regular rate Rhythm: regular rhythm GI Inspection: Yes normal to inspection Palpation (GI): Soft to palpation, not firm, nontender, no guarding and not rigid Neuro General: patient oriented x3 and moves all extremities Cranial nerves: Yes Equal, round and reactive pupils present Cognition (Neuro): normal cognition Motor exam (neuro): 5/5 motor strength present throughout Sensory Exam: Normal double simultaneous stimulation for sensation Coordination: [id number] test normal Extrem General: Yes normal to inspection, Yes full ROM and Yes capillary refill normal Psych Appearance: grossly normal Mental Status: mental status grossly normal Affect: normal affect Attitude: cooperative Thought process: Normal thought process present Thought content: Normal thought content present Insight: Good insight present (Psych) Medical Decision Making Medical Decision Making MDM Narrative: Patient is a 56 year old assigned female at with a history of depression and anxiety presenting to the emergency department today with a cough and body aches. Patient's physical exam was unremarkable. Patient's blood work was unremarkable. Patient's EKG was unremarkable. Patient's chest x-ray showed no acute process. I explained my physical exam findings as well as all test results to the patient. I answered all questions asked by the patient. I stressed the importance of the patient taking her medication as prescribed. I stressed the importance of the patient following up with her primary care provider. I stressed the importance of the patient returning to the emergency department immediately if her symptoms were to worsen or if she were to develop any dizziness, shortness of breath, difficulty breathing, chest pain, blurry vision, loss of vision, nausea, vomiting, abdominal pain, fever, chills, back pain, or any other complaints. Patient verbalized agreement and understanding with this treatment plan and discharge. Differential Diagnosis Differential Diagnoses: The differential diagnosis associated with the presentation includes URI, viral illness Lab Data MDM Lab Attestation statement: I reviewed the patient's lab results. 06/18/22 09:59 06/18/22 09:59 Labs: Lab Results 06/18/22 06/18/22 06/18/22 Range/Units 09:59 09:59 09:59 WBC 5.5 (4.8-10.8) X10*3/uL RBC 4.74 (4.20-5.50) X10*6/uL Hgb 14.0 (12.0-16.0) g/dl Hct 42.2 (37.0-47.0) % MCV 89.0 (80.0-98.0) fL MCH 29.5 (27.0-33.0) pg MCHC 33.2 (31.0-35.0) g/dl RDW 12.9 (11.0-16.0) % Plt Count 278 (160-400) X10*3/uL MPV 9.7 (9.4-12.3) fL Immature Gran % (Auto) 0.2 (0.0-0.4) % Neut % (Auto) 57.2 (45-73) % Lymph % (Auto) 35.1 (20-40) % [place] % (Auto) 5.9 (2-11) % Eos % (Auto) 1.1 (0-4) % Baso % (Auto) 0.5 (0-2) % Lymph # (Auto) 1.9 (1.2-4.9) X10*3/uL [place] # (Auto) 0.3 (0.1-1.2) X10*3/uL Eos # (Auto) 0.1 (0.0-0.4) X10*3/uL Baso # (Auto) 0.0 (0.0-0.2) X10*3/uL Abs Immat Gran (auto) 0.01 (0.00-0.03) X10*3/uL Absolute Neuts (auto) 3.1 (2.0-8.3) x10*3/uL Absolute Nucleated RBC 0.000 (0.0-0.012) X10*3/uL Nucleated RBC % (auto) 0.0 (0.0-0.2) /100WBC Sodium 140 (135-145) mmol/L Potassium 3.9 (3.3-5.1) mmol/L Chloride 108 (96-108) mmol/L Carbon Dioxide 27 (22-29) mmol/L Anion Gap 9 L (12-20) BUN 4 L (9-16) mg/dL Creatinine 0.65 (0.5-1.4) mg/dL Estim Creat Clear Calc 83.4 Estimated GFR > 60 Random Glucose 101 (60-115) mg/dL Calcium 9.7 (8.4-10.2) mg/dL Troponin I High Sens 16.4 (<3.5-17.0) ng/L B-Natriuretic Peptide (<100) pg/mL Influenza Type A (PCR) (Negative) Influenza Type B (PCR) (Negative) RSV RNA Qual (PCR) (Negative) SARS-CoV-2 RNA (RT-PCR) (Negative) 06/18/22 06/18/22 Range/Units 09:59 09:59 WBC (4.8-10.8) X10*3/uL RBC (4.20-5.50) X10*6/uL Hgb (12.0-16.0) g/dl Hct (37.0-47.0) % MCV (80.0-98.0) fL MCH (27.0-33.0) pg MCHC (31.0-35.0) g/dl RDW (11.0-16.0) % Plt Count (160-400) X10*3/uL MPV (9.4-12.3) fL Immature Gran % (Auto) (0.0-0.4) % Neut % (Auto) (45-73) % Lymph % (Auto) (20-40) % [place] % (Auto) (2-11) % Eos % (Auto) (0-4) % Baso % (Auto) (0-2) % Lymph # (Auto) (1.2-4.9) X10*3/uL [place] # (Auto) (0.1-1.2) X10*3/uL Eos # (Auto) (0.0-0.4) X10*3/uL Baso # (Auto) (0.0-0.2) X10*3/uL Abs Immat Gran (auto) (0.00-0.03) X10*3/uL Absolute Neuts (auto) (2.0-8.3) x10*3/uL Absolute Nucleated RBC (0.0-0.012) X10*3/uL Nucleated RBC % (auto) (0.0-0.2) /100WBC Sodium (135-145) mmol/L Potassium (3.3-5.1) mmol/L Chloride (96-108) mmol/L Carbon Dioxide (22-29) mmol/L Anion Gap (12-20) BUN (9-16) mg/dL Creatinine (0.5-1.4) mg/dL Estim Creat Clear Calc Estimated GFR Random Glucose (60-115) mg/dL Calcium (8.4-10.2) mg/dL Troponin I High Sens (<3.5-17.0) ng/L B-Natriuretic Peptide 24 (<100) pg/mL Influenza Type A (PCR) NEGATIVE (Negative) Influenza Type B (PCR) NEGATIVE (Negative) RSV RNA Qual (PCR) NEGATIVE (Negative) SARS-CoV-2 RNA (RT-PCR) NEGATIVE (Negative) Independent Interpretation I performed an independent interpretation of an: EKG Interpretation: Vent. Rate: 065 BPM ? ? Atrial Rate: 065 BPM P-R Int: 132 ms? QRS Dur: 066 ms QT Int: 392 ms ? ? ? P-R-T Axes: 045 014 032 degrees QTc Int: 407 ms ? Normal sinus rhythm Normal ECG DD/ 0954 Radiology Impression Discussion of test interpretation with radiology: I have reviewed the radiologist's reading. Radiologist Impression: My interpretation is in agreement with the radiologist's impression of this imaging study. EXAMINATION: XR CHEST CLINICAL INFORMATION: Shortness of breath COMPARISON: None TECHNIQUE: 2 views of the chest were obtained. FINDINGS: No significant abnormality is noted involving the heart, lungs, mediastinum, bony thorax or soft tissues. XR/XR chest 2V IMPRESSION: Unremarkable examination. Dictated By: Law Riggs MD Signed By: Electronically signed by Law Riggs MD 06/18/22 1109 Discharge Plan Discharge Clinical Impression: Viral illness Patient Disposition: Home, Self-Care Instructions: Viral Syndrome (ED) Additional Instructions: Follow up with your primary care provider. Return to the emergency department immediately if your symptoms worsen or if you develop any dizziness, shortness of breath, difficulty breathing, chest pain, blurry vision, loss of vision, nausea, vomiting, abdominal pain, fever, chills, back pain, or any other complaints. Prescriptions: No Action atorvastatin 20 mg tablet 20 mg PO DAILY 90 Days Qty: 90 1RF acetaminophen 500 mg tablet 1,000 mg PO QID PRN (Reason: pain) Qty: 30 0RF ibuprofen 800 mg tablet 800 mg PO Q8H PRN (Reason: pain) Qty: 30 0RF lidocaine 5 % adhesive patch,medicated 1 patch topical DAILY PRN (Reason: Right shoulder pain) Qty: 30 0RF Rx Instructions: leave on most painful area for up to 12 hrs cefuroxime axetil 250 mg tablet 250 mg PO BID 7 Days Qty: 14 0RF phenazopyridine [Pyridium] 200 mg tablet 200 mg PO TID 2 Days Qty: 6 0RF duloxetine 20 mg capsule,delayed release(DR/EC) 20 mg PO DAILY propranolol 10 mg tablet 10 mg PO DAILY hydroxyzine HCl 25 mg tablet 25 mg PO BID meclizine 25 mg tablet 25 mg PO TID PRN (Reason: motion sickness) Qty: 30 0RF Referrals: Velia Nye MD [Primary Care Provider] - Interventions: ED Discharge Assessment Last Done: 06/18/22 12:27 Discharge Date/Time: 06/18/22 12:28 Print Language: Japanese
== END 2022-06-18 12:28 | disposition home or self-care (01) ==
PROVIDERS: Emergency Provider Emergency Medicine; PCP Internal Medicine
DX: B34.9 Viral infection, unspecified (principal); R06.02 Shortness of breath; Z20.822 Contact with and (suspected) exposure to COVID-19; Z20.828 Contact with and (suspected) exposure to other viral communicable diseases; F32.A Depression, unspecified; F41.9 Anxiety disorder, unspecified; Z87.891 Personal history of nicotine dependence
CPT/HCPCS: 0241U; 71046; 80048; 83880; 84484; 85025; 93005; 99283

== ENCOUNTER 2022-09-17 14:09 | Outpatient (REF) | payer OTHER, SELFPAY ==
[2022-09-17 15:40] LABS: Appearance Urine Clear; Color Urine Dark Yellow; Glucose Urine UA Negative (Negative); Leukocyte Esterase Urine Trace (Negative); Nitrite Urine Positive (Negative); PH 6.5 (5.0-9.0); Specific Gravity - Urine <= 1.005 (1.005-1.025); UMIC TRIGGER UACC YES; Urine Blood Negative (Negative); Urine Ketones Negative (Negative); Urine Protein Negative (Neg-Trace)
[2022-09-17 15:54] LABS: Alanine Aminotransferase 13 U/L (0-31); Albumin Level 4.4 g/dL (3.5-5.0); Alkaline Phosphatase 89 U/L (39-117); Anion Gap 12 (12-20); Aspartate Amino Transferase 21 U/L (5-31); Bilirubin Total 0.2 mg/dL (0.0-1.0); Blood Urea Nitrogen 9 mg/dL (9-16); Calcium 9.5 mg/dL (8.4-10.2); Carbon Dioxide 29 mmol/L (22-29); Chloride 106 mmol/L (96-108); Cholesterol 255 mg/dL; Estimated Glomerular Filt Rate > 60; Glucose Fasting 114 mg/dL (60-99); HDL Cholesterol 55 mg/dL; LDL Cholesterol Calculated 173 mg/dl; Potassium 4.1 mmol/L (3.3-5.1); Sodium 143 mmol/L (135-145); Triglycerides 139 mg/dL
[2022-09-17 16:05] LABS: Bacteria Urine None Seen (None Seen); Hyaline Casts Urine 0-2 /LPF (0-2); RBC Urine 0-2 /HPF (0-2); Squamous Epithelial Cell Urine 0-2 /HPF (0-2); UACC Culture Trigger YES; WBC Urine 0-5 /HPF (0-5)
== END 2022-09-17 14:10 | disposition home or self-care (01) ==
LOC: HO.LAB 14:09
PROVIDERS: PCP Internal Medicine; Visit Provider Internal Medicine
DX: E78.5 Hyperlipidemia, unspecified (principal)
CPT/HCPCS: 36415; 80053; 80061; 81001; 87086

== ENCOUNTER 2022-09-22 09:59 | Emergency (ER) | payer OTHER, SELFPAY ==
--- NOTE | ~2022-09-22 | US_ITS ---
EXAMINATION: US PELVIS CLINICAL INFORMATION: Pelvic pain, pressure, urinary symptoms. Postmenopausal. COMPARISON: CT abdomen/pelvis earlier today. TECHNIQUE: Ultrasound of the pelvis is performed using both transabdominal and transvaginal transducers along with Doppler. Transvaginal imaging is performed due to inadequate visualization transabdominally. FINDINGS: Uterus: The uterus is anteverted and measures 6.3 x 3.6 x 3.9 cm. Previously described fibroids on the ultrasound from 09/04/2016 are not well seen in this examination. There is nonspecific heterogeneity of the myometrium, best visualized on image 14/42 series 1. The endometrium measures 0.2 cm in thickness, no discrete focal endometrial abnormality. Nabothian cyst overlying the cervix. Adnexa: The ovaries are atrophic and symmetric with preserved flow at the moment of this examination. The right ovary measures 1.5 x 1.2 x 1.2 cm, 1 mL and the left ovary measures 1.5 x 1.2 x 1.3 cm, 1.2 mL. Prominent adnexal vessels. Small amount of free fluid in the cul-de-sac. US/US pelvic and transvaginal IMPRESSION: 1. Nonspecific heterogeneity of the myometrium, for which a differential consideration includes adenomyosis. Previously described fibroids are not well seen in this examination. 2. Prominent adnexal vessels which could be seen in the setting of pelvic congestion syndrome in the appropriate clinical context. 3. Otherwise, no significant abnormality.
--- NOTE | ~2022-09-22 | CT_ITS ---
EXAMINATION: CT abdomen pelvis w IV con CLINICAL INFORMATION: Reason for Exam lower abdominal pain COMPARISON: Most recent prior CT April 2022 TECHNIQUE: Multidetector volumetric imaging was performed from the superior aspect of the liver through the pubic symphysis 85 mL Omnipaque 350 injected Sagittal and coronal reformatted images were obtained on the technologist's workstation. This CT examination was performed using dose optimization techniques as appropriate, variously including the following: *Automated exposure control *Adjustment of mA and/or kV according to patient size (this includes techniques or standardized protocols for targeted exams where dose is matched to indication/reason for exam; i.e. extremities or head) *Use of iterative reconstruction technique DLP: 434 mGy-cm FINDINGS: LOWER THORAX: Included lung bases are clear. HEPATOBILIARY: Tiny cyst right lobe of the liver measure 6 mm, liver otherwise remain homogeneous normal in size and texture unchanged from prior CT. No suspicious solid liver lesion. GALLBLADDER: Gallbladder unremarkable. SPLEEN: Spleen is normal in size. PANCREAS: No focal mass or ductal dilatation. STOMACH AND GASTROINTESTINAL TRACT: Stomach is grossly unremarkable. There is diverticulosis of the sigmoid colon without CT evidence of acute diverticulitis. Not visualized. Might have been removed. ADRENALS: No adrenal nodules. KIDNEYS/URETERS: Small simple cyst middle pole left kidney 1.2 x 0.8 cm Bosniak class I, this is almost certainly benign, no follow-up is required. Another tiny cyst lower pole right kidney 0.6 cm, Bosniak class I as well. No solid suspicious renal lesion. No kidney stone or hydronephrosis. URINARY BLADDER: Partially decompressed. PELVIC VISCERA: Unremarkable PERITONEUM: No free air or fluid. LYMPH NODES: No lymphadenopathy. VASCULAR:Abdominal aorta normal in size, no aneurysm found. BONES, ABDOMINAL WALL AND SOFT TISSUES: Age-appropriate changes of the spine and skeletal system, no destructive osteolytic or osteosclerotic bone lesion found CT/CT abdomen pelvis w IV con IMPRESSION: * No CT evidence of acute intra-abdominal process to explain patient's pain symptoms. * Diverticulosis without evidence of acute diverticulitis. * Other noncritical findings described above unchanged.
[2022-09-22 10:30] VITALS: BP 131/94; PULSE 74; RESP 18; TEMP 36.1; O2SAT 97; BMI 24.0
[2022-09-22 11:14] LABS: MANUAL DIFF FLAG NO
[2022-09-22 11:18] LABS: Appearance Urine Clear; Color Urine Yellow; Glucose Urine UA Negative (Negative); Leukocyte Esterase Urine Negative (Negative); Nitrite Urine Negative (Negative); Urine Blood Negative (Negative); Urine Ketones Negative (Negative); Urine Protein Negative (Neg-Trace)
--- NOTE | 2022-09-22 11:18 | ED_ITS ---
HPI - Female Genitourinary General Chief complaint: Urogenital-Female Stated complaint: uti Time Seen by Provider: 09/22/22 11:00 Source: patient and interpreter and translator Mode of arrival: ambulatory Limitations: language barrier History of Present Illness HPI Narrative: 57-year-old female with a history of anxiety, depression presents the ER with complaints of 1 week of lower abdominal pain, frequent urination nausea and chills. Seen by her primary care doctor and had urine and lab work. Patient was told she had a urinary tract infection and she has been taking macrobid x 5 days with no relief. Urine culture from 09/17 available for review and is negative. Of note patient has an abdominal surgery history of appendectomy, bowel obstruction, tubal ligation, hernia repair Related Data Home Medications Medication Instructions Recorded Confirmed duloxetine 20 mg capsule,delayed 20 mg PO DAILY 03/21/21 03/17/22 release hydroxyzine HCl 25 mg tablet 25 mg PO BID 03/21/21 03/17/22 propranolol 10 mg tablet 10 mg PO DAILY 03/21/21 03/17/22 Previous Rx's Medication Instructions Recorded acetaminophen 500 mg tablet 1,000 mg PO QID PRN pain #30 tabs 11/16/21 ibuprofen 800 mg tablet 800 mg PO Q8H PRN pain #30 tabs 11/16/21 lidocaine 5 % topical patch 1 patch topical DAILY PRN Right 11/16/21 shoulder pain #30 ea meclizine 25 mg tablet 25 mg PO TID PRN motion sickness 02/11/22 #30 tabs atorvastatin 20 mg tablet 20 mg PO DAILY 90 days #90 tabs 03/17/22 cefuroxime axetil 250 mg tablet 250 mg PO BID 7 days #14 tabs 04/15/22 phenazopyridine 200 mg tablet 200 mg PO TID 2 days #6 tabs 04/15/22 (Pyridium) nitrofurantoin macrocrystal 100 mg 100 mg PO BID 7 days #14 caps 09/17/22 capsule Allergies Allergy/AdvReac Type Severity Reaction Status Date / Time Cortisone Allergy Intermediate redness, Uncoded 06/18/22 09:36 hives, rash, swelling Review of Systems Review of Systems: Yes all other systems are reviewed and are negative Constitutional: Constitutional: Reports no additional constitutional c omplaints, Denies body ache(s), Reports chills, Denies fever(s), Denies headache(s) and Denies weakness Eyes: Eyes: Reports no additional eye complaints and Denies change in vision ENT: Reports system reviewed and no additional complaints, except as documented, Denies dizziness, Denies headache(s), Denies nasal congestion, Denies nasal discharge and Denies neck pain Cardiovascular: Cardiovascular: Reports no additional cardiovascular complaints, Denies chest pain, Denies leg edema and Denies dyspnea Respiratory: Respiratory: Reports no additional respiratory complaints, Denies cough and Denies dyspnea Gastrointestinal: Gastrointestinal: Reports no additional gastrointestinal complaints, Reports abdominal pain, Denies diarrhea, Denies nausea and Denies vomiting Genitourinary: Genitourinary: Reports no additional female genitourinary complaints and Denies urinary incontinence Comments: Frequent urination Musculoskeletal: Musculoskeletal: Reports no additional musculoskeletal compla ints, Denies back pain, Denies arthralgias, Denies joint swelling, Denies neck pain, Denies numbness and Denies tingling Integumentary/Breasts: Skin/Breast: Reports system reviewed and no additional complaints, except as docu and Denies rash Neurologic: Reports system reviewed and no additional complaints, except as documented, Denies Abnormal speech present, Denies dizziness, Denies headache(s), Denies numbness, Denies tingling and Denies weakness PMFSH Past Medical History Attestation statement: The following information was validated with the patient. Source: old records reviewed and nursing notes reviewed Medical History Anxiety Depression Incisional pain Migraines Mild recurrent major depression Plantar fasciitis Right shoulder pain Vertigo Surgical History History of appendectomy Hx of tubal ligation S/P hernia surgery Family History Family History Mother Mental health disorder Dementia Maternal Aunt Mental health disorder Breast cancer Ovarian cancer Maternal Grandmother Mental health disorder Father Substance use disorder Asthma Maternal Aunt Uterine cancer Social History Social History Housing: Apartment Alcohol intake: never Patient Tobacco Use Status: Former Tobacco user Tobacco use type: Cigarette e-Cigarette/Vaping Use: Never Used Second Hand Smoke Exposure: No Advance Directives: No Advance Directives Information Provided: Yes service: No Current occupational status: unemployed 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 Cognitive needs: No Hearing needs: No Vision needs: No Physical Exam Vital Signs: Vital Signs: Last Vital Signs Temp 98.4 F 09/22/22 16:28 Pulse 71 09/22/22 16:28 Resp 18 09/22/22 16:28 BP 107/81 09/22/22 16:28 Pulse Ox 98 09/22/22 16:28 O2 Del Method Room Air 09/22/22 16:28 BMI result Body Mass Index 24.0 Const: General: cooperative, healthy appearing, comfortable and no acute distress Orientation/consciousness: patient oriented x3 Limitations: no limitations HEENT: Head: Yes normal to inspection Ears: hearing grossly normal bilaterally General nose exam: Normal external nose present Face and sinus: Yes normal facial exam Mouth: Normal oral and palatal mucosa present Throat: Yes posterior oropharynx normal Eyes: General: appearance normal, both eyes and all related structures Pupils: Equal, round and reactive pupils present Neck: Neck: Yes normal visual inspection Chest: Chest palpation & inspection: normal inspection of the chest Resp: Effort & Inspection: normal respiratory effort Auscultation: clear to auscultation bilaterally Cardio: Rate: regular rate Rhythm: regular rhythm Peripheral pulses: Peripheral pulses 2+ throughout GI: Other: Bilateral lower quadrant abdominal tenderness with no rebound or guarding Inspection: Yes normal to inspection Palpation (GI): Soft to palpation and Tenderness to palpation present (GI) Auscultation: normal bowel sounds : External Female Exam: normal external appearance and No lesion Back/Spine/Pelvis: Thoracic/Lumbar Spine: thoracic and lumbar spine normal to inspection Skin: General skin exam: no rashes or lesions noted Neuro: General: patient oriented x3, no focal motor deficits and normal sensa tion to monofilament Cranial nerves: Yes Equal, round and reactive pupils present Cognition (Neuro): normal cognition Speech: No Abnormal speech present Gait exam (Neuro): Normal gait present Motor exam (neuro): 5/5 motor strength present throughout Extrem: General: Yes normal to inspection Course Course Course Narrative: 1500-CT shows no acute finding. Will check pelvic US Reevaluation(s) Reevaluation #1: [id number]-ultrasound shows nonspecific heterogeneity of the myometrium which may be adenomyosis. Prominent adnexal vessels which could be seen the setting of pelvic congestion syndrome. Reviewed these findings with the patient recommend follow-up outpatient with Gynecology. Reviewed worrisome signs and symptoms with the patient when to return to the emergency room. Comfortable plan for discharge home. Medications Administered Discontinued Medications Generic Name Dose Route Start Last Admin Trade Name Karelq PRN Reason Stop Dose Admin Iohexol 85 ml 09/22/22 13:02 09/22/22 13:03 Iohexol 350 Mg/Ml 100 Ml Infus..Btl IV 09/22/22 13:03 85 ml ONCE ONE Administration Ketorolac Tromethamine 15 mg 09/22/22 11:45 09/22/22 11:56 Ketorolac Tromethamine 15 Mg/Ml Vial IVPUSH 09/22/22 11:46 15 mg ONCE ONE Administration Medical Decision Making Medical Decision Making [facility] Narrative: 57-year-old female here with 1 week of lower abdominal pain, frequent urination, chills despite being on Macrobid for 5 days for presumed urinary tract infectio n. Patient has labs and urine from triage which are unremarkable. Patient has tenderness in lower quadrants on exam with significant abdominal surgery history Will obtain CT, provide analgesia Differential Diagnosis Differential Diagnoses: The differential diagnosis associated with the presentation includes Diverticulitis, urinary tract infection, renal colic, pyelonephritis, ovarian mass Lab Data [facility] Lab Attestation statement: I reviewed the patient's lab results. 09/22/22 11:07 09/22/22 11:07 Labs: Lab Results 09/22/22 09/22/22 09/22/22 Range/Units 11:07 11:07 11:07 WBC 7.5 (4.8-10.8) X10*3/uL RBC 4.87 (4.20-5.50) X10*6/uL Hgb 14.5 (12.0-16.0) g/dl Hct 44.4 (37.0-47.0) % MCV 91.2 (80.0-98.0) fL MCH 29.8 (27.0-33.0) pg MCHC 32.7 (31.0-35.0) g/dl RDW 13.0 (11.0-16.0) % Plt Count 288 (160-400) X10*3/uL MPV 9.5 (9.4-12.3) fL Immature Gran % (Auto) 0.3 (0.0-0.4) % Neut % (Auto) 73.4 H (45-73) % Lymph % (Auto) 21.2 (20-40) % [place] % (Auto) 3.7 (2-11) % Eos % (Auto) 0.9 (0-4) % Baso % (Auto) 0.5 (0-2) % Lymph # (Auto) 1.6 (1.2-4.9) X10*3/uL [place] # (Auto) 0.3 (0.1-1.2) X10*3/uL Eos # (Auto) 0.1 (0.0-0.4) X10*3/uL Baso # (Auto) 0.0 (0.0-0.2) X10*3/uL Abs Immat Gran (auto) 0.02 (0.00-0.03) X10*3/uL Absolute Neuts (auto) 5.5 (2.0-8.3) x10*3/uL Absolute Nucleated RBC 0.000 (0.0-0.012) X10*3/uL Nucleated RBC % (auto) 0.0 (0.0-0.2) /100WBC Sodium 143 (135-145) mmol/L Potassium 4.3 (3.3-5.1) mmol/L Chloride 106 (96-108) mmol/L Carbon Dioxide 27 (22-29) mmol/L Anion Gap 14 (12-20) BUN 10 (9-16) mg/dL Creatinine 0.76 (0.5-1.4) mg/dL Estim Creat Clear Calc 67.5 Estimated GFR > 60 Random Glucose 105 (60-115) mg/dL Calcium 9.8 (8.4-10.2) mg/dL Total Bilirubin 0.2 (0.0-1.0) mg/dL AST 22 (5-31) U/L ALT 16 (0-31) U/L Alkaline Phosphatase 92 (39-117) U/L Total Protein 7.5 (6.5-8.0) g/dL Albumin 4.6 (3.5-5.0) g/dL Lipase 19 (8-78) U/L Urine Color Yellow Urine Appearance Clear Urine pH 6.0 (5.0-9.0) Ur Specific [place] 1.010 (1.005-1.025) Urine Protein Negative (Neg-Trace) mg/dL Urine Glucose (UA) Negative (Negative) mg/dL Urine Ketones Negative (Negative) mg/dL Urine Blood Negative (Negative) Urine Nitrite Negative (Negative) Ur Leukocyte Esterase Negative (Negative) Independent Interpretation I performed an independent interpretation of an: Ultrasound and CT Scan Interpretation: I independently reviewed the CT scan/pelvic ultrasound and agree with the radiologist report Radiology Impression Discussion of test interpretation with radiology: I have reviewed the radiologist's reading. Radiologist Impression: FINDINGS: LOWER THORAX: Included lung bases are clear. HEPATOBILIARY: Tiny cyst right lobe of the liver measure 6 mm, liver otherwise remain homogeneous normal in size and texture unchanged from prior CT. No suspicious solid liver lesion. GALLBLADDER: Gallbladder unremarkable. SPLEEN: Spleen is normal in size. PANCREAS: No focal mass or ductal dilatation. STOMACH AND GASTROINTESTINAL TRACT: Stomach is grossly unremarkable. There is diverticulosis of the sigmoid colon without CT evidence of acute diverticulitis. Not visualized. Might have been removed. ADRENALS: No adrenal nodules. KIDNEYS/URETERS: Small simple cyst middle pole left kidney 1.2 x 0.8 cm Bosniak class I, this is almost certainly benign, no follow-up is required. Another tiny cyst lower pole right kidney 0.6 cm, Bosniak class I as well. No solid suspicious renal lesion. No kidney stone or hydronephrosis. URINARY BLADDER: Partially decompressed. PELVIC VISCERA: Unremarkable PERITONEUM: No free air or fluid. LYMPH NODES: No lymphadenopathy. VASCULAR:Abdominal aorta normal in size, no aneurysm found. BONES, ABDOMINAL WALL AND SOFT TISSUES: Age-appropriate changes of the spine and skeletal system, no destructive osteolytic or osteosclerotic bone lesion found CT/CT abdomen pelvis w IV con IMPRESSION: ? *? No CT evidence of acute intra-abdominal process to explain patient's pain symptoms. ? *? Diverticulosis without evidence of acute diverticulitis. ? *? Other noncritical findings described above unchanged. [address] [address] Ultrasound Report Signed Patient: Gladis Benavidez MR#: [id number] : 1965 Acct:[id number] Age/Sex: 57 / F ADM Date: 09/22/22 Loc: HO.ED Attending Dr: Ordering Physician: Kena Pierce NP Date of Service: 09/22/22 Procedure(s): US pelvic and transvaginal Accession Number(s): [id number] cc: Kena Pierce NP~ EXAMINATION:? US PELVIS CLINICAL INFORMATION:? Pelvic pain, pressure, urinary symptoms. Postmenopausal. COMPARISON: CT abdomen/pelvis earlier today. TECHNIQUE: Ultrasound of the pelvis is performed using both transabdominal and transvaginal transducers along with Doppler. Transvaginal imaging is performed due to inadequate visualization transabdominally. FINDINGS: Uterus: The uterus is anteverted and measures 6.3 x 3.6 x 3.9 cm. Previously described fibroids on the ultrasound from 09/04/2016 are not well seen in this examination. There is nonspecific heterogeneity of the myometrium, best visualized on image 14/42 series 1. The endometrium measures 0.2 cm in thickness, no discrete focal endometrial abnormality. Nabothian cyst overlying the cervix. Adnexa: The ovaries are atrophic and symmetric with preserved flow at the moment of this examination. The right ovary measures 1.5 x 1.2 x 1.2 cm, 1 mL and the left ovary measures 1.5 x 1.2 x 1.3 cm, 1.2 mL. Prominent adnexal vessels. Small amount of free fluid in the cul-de-sac. US/US pelvic and transvaginal IMPRESSION: 1.? Nonspecific heterogeneity of the myometrium, for which a differential consideration includes adenomyosis. Previously described fibroids are not well seen in this examination. 2.? Prominent adnexal vessels which could be seen in the setting of pelvic congestion syndrome in the appropriate clinical context. 3.? Otherwise, no significant abnormality. ? Discharge Plan Discharge Clinical Impression: Abdominal pain Patient Disposition: Home, Self-Care Instructions: Abdominal Pain (ED) Additional Instructions: Steffany an?lisis de orina, an?lisis de laboratorio y tomograf?a computarizada son todos normales. Por favor, jose un seguimiento con rao m?dico de atenci?n primaria. [place] motrin o tylenol para el dolor seg?n sea necesario. Rao ultrasonido muestra engrosamiento del revestimiento del ?tero y congesti?n de los vasos sangu?neos en rao pelvis. Por favor, jose un seguimiento con rao ginec?logo con respecto a esto. Prescriptions: No Action atorvastatin 20 mg tablet 20 mg PO DAILY 90 Days Qty: 90 1RF nitrofurantoin macrocrystal 100 mg capsule 100 mg PO BID 7 Days Qty: 14 0RF Rx Instructions: must administer with a meal/food acetaminophen 500 mg tablet 1,000 mg PO QID PRN (Reason: pain) Qty: 30 0RF ibuprofen 800 mg tablet 800 mg PO Q8H PRN (Reason: pain) Qty: 30 0RF lidocaine 5 % adhesive patch,medicated 1 patch topical DAILY PRN (Reason: Right shoulder pain) Qty: 30 0RF Rx Instructions: leave on most painful area for up to 12 hrs cefuroxime axetil 250 mg tablet 250 mg PO BID 7 Days Qty: 14 0RF phenazopyridine [Pyridium] 200 mg tablet 200 mg PO TID 2 Days Qty: 6 0RF duloxetine 20 mg capsule,delayed release(DR/EC) 20 mg PO DAILY propranolol 10 mg tablet 10 mg PO DAILY hydroxyzine HCl 25 mg tablet 25 mg PO BID meclizine 25 mg tablet 25 mg PO TID PRN (Reason: motion sickness) Qty: 30 0RF Referrals: Velia Nye MD [Primary Care Provider] - 1 week Iron Durant MD [Physician] - 1 week Print Language: Stateless
[2022-09-22 11:19] LABS: Basophils Percent Auto 0.5 % (0-2); Eosinophils Absolute Auto 0.1 X10*3/uL (0.0-0.4); Eosinophils Percent Auto 0.9 % (0-4); Hematocrit 44.4 % (37.0-47.0); Hemoglobin 14.5 g/dl (12.0-16.0); Imm Gran Abs Auto 0.02 X10*3/uL (0.00-0.03); Imm Gran Pct Auto 0.3 % (0.0-0.4); Lymphocytes Absolute Auto 1.6 X10*3/uL (1.2-4.9); Lymphocytes Percent Auto 21.2 % (20-40); Mean Corpuscular HGB Conc 32.7 g/dl (31.0-35.0); Mean Corpuscular Hemoglobin 29.8 pg (27.0-33.0); Mean Corpuscular Volume 91.2 fL (80.0-98.0); Mean Platelet Volume 9.5 fL (9.4-12.3); Monocytes Absolute Auto 0.3 X10*3/uL (0.1-1.2); Monocytes Percent Auto 3.7 % (2-11); Neutrophils Absolute Auto 5.5 x10*3/uL (2.0-8.3); Neutrophils Percent Auto 73.4 % (45-73); Platelet Count 288 X10*3/uL (160-400); Red Blood Count 4.87 X10*6/uL (4.20-5.50); White Blood Count 7.5 X10*3/uL (4.8-10.8)
[2022-09-22 11:36] LABS: Alanine Aminotransferase 16 U/L (0-31); Albumin Level 4.6 g/dL (3.5-5.0); Alkaline Phosphatase 92 U/L (39-117); Anion Gap 14 (12-20); Aspartate Amino Transferase 22 U/L (5-31); Bilirubin Total 0.2 mg/dL (0.0-1.0); Blood Urea Nitrogen 10 mg/dL (9-16); Calcium 9.8 mg/dL (8.4-10.2); Carbon Dioxide 27 mmol/L (22-29); Chloride 106 mmol/L (96-108); Creatinine Clr Calc Pharmacy 67.5; Estimated Glomerular Filt Rate > 60; Glucose Random 105 mg/dL (60-115); Potassium 4.3 mmol/L (3.3-5.1); Sodium 143 mmol/L (135-145); Total Protein 7.5 g/dL (6.5-8.0)
[2022-09-22] MEDS: Ketorolac Tromethamine 15 MG/ML VIAL IVPUSH (11:56)
[2022-09-22 12:08] LABS: Lipase 19 U/L (8-78)
[2022-09-22] MEDS: iohexoL 350 MG/ML 100 ML INFUS..BTL 85 ML IV (13:03)
[2022-09-22 14:23] VITALS: BP 151/91; PULSE 85; RESP 16; O2SAT 99
[2022-09-22 16:28] VITALS: BP 107/81; PULSE 71; RESP 18; TEMP 36.9; O2SAT 98
== END 2022-09-22 17:15 | disposition home or self-care (01) ==
PROVIDERS: Nurse Practitioner Family; Emergency Provider Emergency Medicine; PCP Internal Medicine
DX: R10.30 Lower abdominal pain, unspecified (principal); Z79.02 Long term (current) use of antithrombotics/antiplatelets; Z79.899 Other long term (current) drug therapy
CPT/HCPCS: 36415; 74177; 76830; 76856; 80053; 81003; 83690; 85025; 96374; 99284; J1885; Q9967

== ENCOUNTER 2022-10-06 09:24 | Outpatient (REF) | payer OTHER, SELFPAY ==
[2022-10-06 10:41] LABS: Appearance Urine Clear; Color Urine Yellow; Glucose Urine UA Negative (Negative); Leukocyte Esterase Urine Trace (Negative); Nitrite Urine Negative (Negative); Specific Gravity - Urine 1.015 (1.005-1.025); UMIC TRIGGER UACC YES; Urine Blood Negative (Negative); Urine Ketones Negative (Negative); Urine Protein Negative (Neg-Trace)
[2022-10-06 10:47] LABS: Bacteria Urine None Seen (None Seen); Hyaline Casts Urine 0-2 /LPF (0-2); RBC Urine 0-2 /HPF (0-2); Squamous Epithelial Cell Urine 0-2 /HPF (0-2); WBC Urine 0-5 /HPF (0-5)
[2022-10-06 11:21] LABS: Alanine Aminotransferase 13 U/L (0-31); Albumin Level 4.3 g/dL (3.5-5.0); Alkaline Phosphatase 79 U/L (39-117); Anion Gap 10 (12-20); Aspartate Amino Transferase 18 U/L (5-31); Bilirubin Total 0.6 mg/dL (0.0-1.0); Blood Urea Nitrogen 7 mg/dL (9-16); Calcium 9.4 mg/dL (8.4-10.2); Carbon Dioxide 26 mmol/L (22-29); Chloride 109 mmol/L (96-108); Cholesterol 166 mg/dL; Estimated Glomerular Filt Rate > 60; Glucose Fasting 104 mg/dL (60-99); HDL Cholesterol 54 mg/dL; LDL Cholesterol Calculated 95 mg/dl; Potassium 4.3 mmol/L (3.3-5.1); Sodium 141 mmol/L (135-145); Total Protein 6.9 g/dL (6.5-8.0); Triglycerides 89 mg/dL
[2022-10-06 11:22] LABS: Vitamin D 25-OH Total 44.5 ng/mL (>30)
== END 2022-10-06 09:25 | disposition home or self-care (01) ==
LOC: HO.LAB 09:24
PROVIDERS: PCP Internal Medicine; Visit Provider Internal Medicine
DX: E55.9 Vitamin D deficiency, unspecified (principal); E78.5 Hyperlipidemia, unspecified; R30.0 Dysuria; R39.9 Unspecified symptoms and signs involving the genitourinary system
CPT/HCPCS: 36415; 80053; 80061; 81001; 82306

== ENCOUNTER 2022-10-21 08:54 | Outpatient (REF) | payer OTHER, SELFPAY ==
[2022-10-24 02:29] LABS: HPV mRNA E6/E7 rflx Not Detected (Not Detected)
== END 2022-10-21 08:55 | disposition home or self-care (01) ==
LOC: HO.LNP 08:54
PROVIDERS: PCP Internal Medicine; Visit Provider Advanced Practice Midwife
DX: Z01.419 Encounter for gynecological examination (general) (routine) without abnormal findings (principal); Z11.51 Encounter for screening for human papillomavirus (HPV)
CPT/HCPCS: 87624; 88142

== ENCOUNTER 2023-04-02 13:28 | Outpatient (AMB) | payer OTHER, SELFPAY ==
[2023-04-02 13:29] VITALS: BP 112/80; PULSE 74; O2SAT 99; BMI 23.8
--- NOTE | 2023-04-02 13:29 | MHC.PC.OV ---
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 infection Manager Human Resources Required: No Accompanied by: Self / Same As Patient Allergies Cortisone Allergy (Intermediate, Uncoded 04/02/23 13:29) redness, hives, rash, swelling Tobacco use date assessed: 04/02/23 Dental Screening Dental Screen Date: 04/02/23 Did you have a dental visit in the last 12 months?: Yes Did you have a dental problem in the last 6 months where you did not have access to dental care?: No Was dental information given to patient?: Patient has dentist HPI HPI Comments History of Present Illness Details This is a 57-year-old female with pure hypercholesterolemia, mild recurrent major depression, vertigo and anxiety that comes today for same-day visit for sinus infection. Patient reports 1 month ago had COVID, since having COVID patient has been experiencing ongoing nasal congestion with yellow nasal drainage and chest congestion. Patient states for the last 4 days has been experiencing chills believe she has a fever, sinus pain and pressure. 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 Patient was noted to have unequal pupils, verified with patient that she had only her left eye dilated at ophthalmology appointment. [facility] Medical History Anxiety Back pain Depression Incisional pain Migraines Mild recurrent major depression Plantar fasciitis Right shoulder pain Vertigo Surgical History History of appendectomy Hx of tubal ligation S/P hernia surgery Family History Mother Mental health disorder Dementia Maternal Aunt Mental health disorder Breast cancer Ovarian cancer Maternal Grandmother Mental health disorder Father Substance use disorder Asthma Maternal Aunt Uterine cancer Social History Housing: Apartment Alcohol intake: never Patient Tobacco Use Status: Former Tobacco user Tobacco use type: Cigarette e-Cigarette/Vaping Use: Never Used Second Hand Smoke Exposure: No service: No Current occupational status: unemployed 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 1. Little interest or pleasure in doing things: more than half the days 2. Feeling down, depressed, or hopeless: more than half the days 3. Trouble falling or staying asleep, or sleeping too much: more than half the days 4. Feeling tired or having little energy: more than half the days 5. Poor appetite or overeating: several days 6. Feeling bad about yourself - or that you are a failure or have let yourself or your family down: not at all 7. Trouble concentrating on things, such as reading the newspaper or watching television: not at all 8. Moving or speaking so slowly that other people could have noticed. Or the opposite - being so fidgety or restless that you have been moving around a lot more than usual: not at all 9. Thoughts that you would be better off or of hurting yourself in some way: not at all Total score: 9 Depression Screening Interpretation: Positive Depression Screening Follow-up: Existing condition Depression Screening Done: Yes 86564 - PHQ-9 Billing: Yes Source: Developed by Drs. Ghulam Chen, Enid Mosley, Helio Casas and colleagues, with an educational morenita from [employer]. Thrive Questionnaire Date Thrive assessed: 04/02/23 I am a: Patient What is your living situation today?: I have a steady place to live Within the past 12 months, did the food you bought not last and you didn't have the money to get more?: Never true Within the past 12 months, did you worry whether your food would run out before you got money to buy more?: Never true Do you have trouble paying for medicines?: No Do you have trouble getting transportation to medical appointments?: No Do you have trouble paying your heating and electricity bill?: No Do you have trouble taking care of your child, family member or friend?: No Do you have trouble with day-to-day activities such as bathing, preparing meals, shopping, managing finances, etc.?: No Are you currently unemployed and looking for a job?: No Are you interested in more education?: No Please select the resources that you would like help with: None Currently or been in a relationship where the following occur: no concerns reported AUDIT C Alcohol Use Questionnaire (AUDIT-C) 1. How often do you have a drink containing alcohol?: Never Total Score: 0 PAULINE-7 AMB Questionnaire PAULINE-7 Date PAULINE - 7 assessed: 04/02/23 Feeling nervous, anxious, or on edge: 2 = More than half the days Not being able to stop or control worryin = Not at all Worrying too much about different things: 1 = Several days Trouble relaxin = Not at all Being so restless that it is hard to sit still: 0 = Not at all Becoming easily annoyed or irritable: 1 = Several days Feeling afraid as if something awful might happen: 0 = Not at all Total PAULINE-7 score (0-4 normal; 5-9 mild; 10-14 moderate; 15-21 severe): 4 Source: Developed by Drs. Ghulam Chen, Enid Mosley, Helio Casas and colleagues, with an educational morenita from [employer]. PAULINE-7 Assessment Billing PAULINE-7 Assessment Tool: PAULINE-7 Assessment 62484 Review of Systems Const Reports chills, Denies fatigue, Reports fever(s) and Denies poor appetite Eyes Denies no additional complaints ENT Reports Normal hearing present, Reports nasal congestion, Reports nasal discharge, Reports sinus pain, Reports sinus pressure and Denies sore throat Card Denies chest pain, Denies syncope, Denies rapid heart rate and Denies dyspnea Resp Reports chest congestion, Reports cough and Denies dyspnea GI Denies change in stool character, Denies constipation, Denies diarrhea, Denies nausea and Denies vomiting Denies urinary frequency, Denies dysuria and Denies urinary urgency Neuro Reports Normal hearing present, Denies confusion and Denies syncope Psych Denies confusion Endo Denies fatigue Physical exam (Primary Care) Vital Signs: Last Vital Signs Pulse 74 04/02/23 13:29 BP 112/80 04/02/23 13:29 Pulse Ox 99 04/02/23 13:29 Oxygen Delivery Method Room Air 04/02/23 13:29 BMI result Body Mass Index 23.8 Tobacco/Smoking Status: Tobacco use Status Tobacco use date assessed 04/02/23 04/02/23 13:30 Patient Tobacco Use Status Former Tobacco user 04/02/23 13:30 Tobacco use type Cigarette 04/02/23 13:30 e-Cigarette/Vaping Use Never Used 04/02/23 13:30 PHQ-9: PHQ-9 Score PHQ-9: Total score 9 04/02/23 13:53 Depression Screening Interpretation: Positive Depression Screening Follow-up: Existing condition Thrive Assessment: Date of Thrive Assessment Date Thrive assessed 04/02/23 04/02/23 13:30 Currently or been in a relationship where the following occur: no concerns reported Const General: No confusion Orientation/consciousness: No confusion HENMT Head: Yes normocephalic and Yes atraumatic Ears: hearing grossly normal bilaterally and TM's normal bilaterally General nose exam: Nasal discharge present purulent Face and sinus: Yes sinus tenderness (Frontal and maxillary sinus tenderness noted on exam.) Eyes Conjunctivae: conjunctivae normal Chest Chest palpation & inspection: normal inspection of the chest Resp Effort & Inspection: normal respiratory effort Auscultation: clear to auscultation bilaterally, no crackles, no rhonchi and no wheezes Cardio Rate: regular rate Rhythm: regular rhythm Heart sounds: S1 normal heart sound present and S2 normal heart sound present GI Inspection: Yes normal to inspection Neuro General: No confusion Cranial nerves: Yes Normal hearing present Extrem General: No edema Assessment and Plan Assessment & Plan (1) Sinus infection: Code(s): J32.9 - Chronic sinusitis, unspecified Plan: Augmentin sent to patient's pharmacy b.i.d. times 10 days for treatment of sinus infection. Patient advise can treat fevers symptomatically with Tylenol. Patient advised to apply warm compresses to face over sinuses for sinus pain/pressure. Plan Keep scheduled follow-up with PCP or follow-up sooner if needed. Medications: New amoxicillin-pot clavulanate 875-125 mg 1 tab PO BID 20 tabs 0RF J32.9 - Chronic sinusitis, unspecified Coding Level of Care Code Est Pt Level 3 (20375) Diagnoses Sinus infection J32.9 Additional Codes PAULINE-7 Assessment Billing - PAULINE-7 Assessment Tool: PAULINE-7 Assessment 97072 ([id number])
== END 2023-04-02 15:03 | disposition home or self-care (01) ==
PROVIDERS: PCP Internal Medicine; Visit Provider Internal Medicine
DX: J32.9 Chronic sinusitis, unspecified (principal)
CPT/HCPCS: 99213

== ENCOUNTER 2023-04-29 08:07 | Outpatient (REF) | payer OTHER, SELFPAY | END 2023-04-29 08:08 | disposition home or self-care (01) | LOC: HO.MAMMO 08:07 | PROVIDERS: PCP Internal Medicine; Visit Provider Internal Medicine | DX: Z12.31 Encounter for screening mammogram for malignant neoplasm of breast (principal) | CPT/HCPCS: 77063; 77067 ==

== ENCOUNTER → 2023-04-29 09:15 | Outpatient (BNV) | payer OTHER, SELFPAY | PROVIDERS: PCP Internal Medicine; Visit Provider Radiology Diagnostic Radiology | DX: Z12.31 Encounter for screening mammogram for malignant neoplasm of breast (principal) | CPT/HCPCS: 77063; 77067 ==

== ENCOUNTER 2023-06-15 16:01 | Outpatient (AMB) | payer OTHER, SELFPAY ==
--- NOTE | 2023-06-15 16:31 | A.OFFPC_ITS ---
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 Required: No Accompanied by: Self / Same As Patient Allergies Cortisone Allergy (Intermediate, Uncoded 06/15/23 17:05) redness, hives, rash, swelling Medication List - Last Reconciled 06/15/23 by Velia Wood MD acetaminophen 1,000 mg (2 x 500 mg) PO QID PRN atorvastatin 20 mg PO DAILY 90 days duloxetine 20 mg PO DAILY hydroxyzine HCl 25 mg PO BID ibuprofen 800 mg PO Q8H PRN meclizine 25 mg PO TID PRN propranolol 10 mg PO DAILY Tobacco use date assessed: 06/15/23 Dental Screening Dental Screen Date: 06/15/23 Did you have a dental visit in the last 12 months?: Yes Did you have a dental problem in the last 6 months where you did not have access to dental care?: No Was dental information given to patient?: Patient has dentist HPI HPI Comments History of Present Illness Details This is a 57-year-old female with mild recurrent major depression that comes for her physical exam. Depression still present and I will increase duloxetine. Last mammogram was April 2023 and was normal. Last Pap smear was September 2022 and was normal. Last colonoscopy was 2015 and was normal and next colonoscopy should be 2025. No chest pain or shortness of breath. [facility] Medical History (Updated 06/15/23 @ 17:16 by Velia Wood MD) Back pain Incisional pain Mild recurrent major depression Right shoulder pain Plantar fasciitis Anxiety Depression Migraines Vertigo Surgical History History of appendectomy Hx of tubal ligation S/P hernia surgery Family History Mother Mental health disorder Dementia Maternal Aunt Mental health disorder Breast cancer Ovarian cancer Maternal Grandmother Mental health disorder Father Substance use disorder Asthma Maternal Aunt Uterine cancer Social History Housing: Apartment Alcohol intake: never Patient Tobacco Use Status: Former Tobacco user Tobacco use type: Cigarette e-Cigarette/Vaping Use: Never Used Second Hand Smoke Exposure: No service: No Current occupational status: unemployed 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 1. Little interest or pleasure in doing things: more than half the days 2. Feeling down, depressed, or hopeless: more than half the days 3. Trouble falling or staying asleep, or sleeping too much: more than half the days 4. Feeling tired or having little energy: more than half the days 5. Poor appetite or overeating: several days 6. Feeling bad about yourself - or that you are a failure or have let yourself or your family down: not at all 7. Trouble concentrating on things, such as reading the newspaper or watching television: not at all 8. Moving or speaking so slowly that other people could have noticed. Or the opposite - being so fidgety or restless that you have been moving around a lot more than usual: not at all 9. Thoughts that you would be better off or of hurting yourself in some way: not at all Total score: 9 Depression Screening Interpretation: Positive Depression Screening Follow-up: Existing condition Depression Screening Done: Yes 90968 - PHQ-9 Billing: Yes Source: Developed by Drs. Ghulam Chen, Enid Mosley, Helio Casas and colleagues, with an educational morenita from [employer]. Thrive Questionnaire Date Thrive assessed: 06/15/23 I am a: Patient What is your living situation today?: I have a steady place to live Within the past 12 months, did the food you bought not last and you didn't have the money to get more?: Never true Within the past 12 months, did you worry whether your food would run out before you got money to buy more?: Never true Do you have trouble paying for medicines?: No Do you have trouble getting transportation to medical appointments?: No Do you have trouble paying your heating and electricity bill?: No Do you have trouble taking care of your child, family member or friend?: No Do you have trouble with day-to-day activities such as bathing, preparing meals, shopping, managing finances, etc.?: No Are you currently unemployed and looking for a job?: No Are you interested in more education?: No Please select the resources that you would like help with: None AUDIT C Alcohol Use Questionnaire (AUDIT-C) 1. How often do you have a drink containing alcohol?: Never Total Score: 0 PAULINE-7 AMB Questionnaire PAULINE-7 Date PAULINE - 7 assessed: 06/15/23 Feeling nervous, anxious, or on edge: 1 = Several days Not being able to stop or control worryin = Not at all Worrying too much about different things: 1 = Several days Trouble relaxin = Not at all Being so restless that it is hard to sit still: 0 = Not at all Becoming easily annoyed or irritable: 1 = Several days Feeling afraid as if something awful might happen: 0 = Not at all Total PAULINE-7 score (0-4 normal; 5-9 mild; 10-14 moderate; 15-21 severe): 3 Source: Developed by Drs. Ghulam Chen, Enid Mosley, Helio Casas and colleagues, with an educational morenita from [employer]. PAULINE-7 Assessment Billing PAULINE-7 Assessment Tool: PAULINE-7 Assessment 88662 Review of Systems Const All systems reviewed & are unremarkable except as noted in HPI and below Eyes Reports no additional complaints, Denies change in vision and Denies other visual disturbances Card Denies chest pain at rest, Denies chest pain with activity, Denies edema, Denies irregular heart rhythm, Denies claudication, Denies dyspnea, Denies dyspnea on exertion, Denies orthopnea, Denies paroxysmal nocturnal dyspnea and Denies slow heart rate Resp Denies cough, Denies dyspnea and Denies dyspnea on exertion GI Denies abdominal pain, Denies change in bowel habits, Denies excessive flatus, Denies nausea and Denies vomiting Denies urinary incontinence, Denies urinary hesitancy and Denies urinary urgency Musc Denies abnormal gait, Denies atrophy, Denies deformity and Denies limited range of motion Skin/Breast Denies bleeding lesions, Denies changing lesions and Denies rash Neuro Denies abnormal gait, Denies behavioral changes, Denies confusion and Denies lack of coordination Psych Denies behavioral changes and Denies confusion Physical exam (Primary Care) Vital Signs: Last Vital Signs BP 112/76 06/15/23 16:33 BMI result Body Mass Index 24.4 Tobacco/Smoking Status: Tobacco use Status Tobacco use date assessed 06/15/23 06/15/23 16:39 Patient Tobacco Use Status Former Tobacco user 06/15/23 16:39 Tobacco use type Cigarette 06/15/23 16:39 e-Cigarette/Vaping Use Never Used 06/15/23 16:39 PHQ-9: PHQ-9 Score PHQ-9: Total score 9 06/15/23 17:07 Depression Screening Interpretation: Positive Depression Screening Follow-up: Existing condition Thrive Assessment: Date of Thrive Assessment Date Thrive assessed 06/15/23 06/15/23 16:39 Const General: No confusion Orientation/consciousness: patient oriented x3 and No confusion HENMT Head: Yes normal to inspection, Yes normocephalic and Yes atraumatic Ears: external ears normal Eyes General: appearance normal, both eyes and all related structures Eyelids: Yes eyelids normal Conjunctivae: conjunctivae normal Neck Neck: Yes normal visual inspection and Yes supple Resp Effort & Inspection: normal respiratory effort Auscultation: clear to auscultation bilaterally Cardio Jugular venous distension: no JVD Rate: regular rate Rhythm: regular rhythm Heart sounds: S1 normal heart sound present and S2 normal heart sound present GI Inspection: Yes normal to inspection Palpation (GI): Soft to palpation and nontender Auscultation: normal bowel sounds Skin General skin exam: no rashes or lesions noted Neuro General: patient oriented x3, no focal motor deficits and No confusion Extrem General: Yes full ROM Psych Appearance: grossly normal Assessment and Plan Assessment & Plan (1) Physical exam: Code(s): Z00.00 - Encounter for general adult medical examination without abnormal findings Plan: Repeat in a year. (2) Mild recurrent major depression: Code(s): F33.0 - Major depressive disorder, recurrent, mild Plan: Increase duloxetine. Orders: Orders Comprehensive Met. Panel Today Z00.00 - Encounter for general adult medical examination without abnormal findings Lipid Panel Today E78.5 - Hyperlipidemia, unspecified Vitamin D 25-OH Total Today E55.9 - Vitamin D deficiency, unspecified Thyroid Stimulating Hormone Today L65.9 - Nonscarring hair loss, unspecified Referrals Dermatology Referral L65.9 - Nonscarring hair loss, unspecified Medications: New duloxetine 30 mg PO DAILY 90 caps 0RF 90 days Refilled meclizine 25 mg PO TID PRN 30 tabs 0RF motion sickness Coding Level of Care Code Est Pt Prev Care 40-64y(64726) Diagnoses Physical exam Z00.00 Mild recurrent major depression F33.0 Additional Codes PAULINE-7 Assessment Billing - PAULINE-7 Assessment Tool: PAULINE-7 Assessment [id number] ([id number]) Time Spent (min) 33
[2023-06-15 16:33] VITALS: BP 112/76; BMI 24.4
== END 2023-06-15 17:16 | disposition home or self-care (01) ==
PROVIDERS: PCP Internal Medicine; Visit Provider Internal Medicine
DX: Z00.00 Encounter for general adult medical examination without abnormal findings (principal); F33.0 Major depressive disorder, recurrent, mild; F41.9 Anxiety disorder, unspecified; G43.909 Migraine, unspecified, not intractable, without status migrainosus
CPT/HCPCS: 99396

== ENCOUNTER 2023-06-17 09:40 | Outpatient (REF) | payer OTHER, SELFPAY ==
[2023-06-17 11:26] LABS: Alanine Aminotransferase 13 U/L (0-31); Albumin Level 4.4 g/dL (3.5-5.0); Alkaline Phosphatase 72 U/L (39-117); Anion Gap 10 (12-20); Aspartate Amino Transferase 20 U/L (5-31); Bilirubin Total 0.4 mg/dL (0.0-1.0); Blood Urea Nitrogen 10 mg/dL (9-16); Calcium 9.7 mg/dL (8.4-10.2); Carbon Dioxide 29 mmol/L (22-29); Chloride 106 mmol/L (96-108); Cholesterol 167 mg/dL (<200); Estimated Glomerular Filt Rate > 60; Glucose Random 102 mg/dL (60-115); HDL Cholesterol 54 mg/dL (>40); LDL Cholesterol Calculated 95 mg/dL (<100); Potassium 3.9 mmol/L (3.3-5.1); Sodium 141 mmol/L (135-145); Total Protein 7.7 g/dL (6.5-8.0); Triglycerides 92 mg/dL (<150)
[2023-06-17 11:48] LABS: Thyroid Stimulating Hormone 0.55 uIU/mL (0.32-4.0); Vitamin D 25-OH Total 41.2 ng/mL (>30)
== END 2023-06-17 09:41 | disposition home or self-care (01) ==
LOC: HO.LAB 09:40
PROVIDERS: PCP Internal Medicine; Visit Provider Internal Medicine
DX: Z00.00 Encounter for general adult medical examination without abnormal findings (principal); E78.5 Hyperlipidemia, unspecified; E55.9 Vitamin D deficiency, unspecified; L65.9 Nonscarring hair loss, unspecified
CPT/HCPCS: 36415; 80053; 80061; 82306; 84443

== ENCOUNTER 2023-10-12 08:47 | Outpatient (AMB) | payer OTHER, SELFPAY ==
[2023-10-12 09:03] VITALS: BP 122/76; PULSE 75; TEMP 36.6; O2SAT 98
--- NOTE | 2023-10-12 09:03 | MHC.OFFWIV ---
Intake Vital Signs 10/12/23 09:03 Height 5 ft 3 in BP 122/76 Blood Pressure Location Rt brachial Position Sitting Pulse 75 Pulse Source Pulse Oximeter Temp 97.9 F Temp Source Oral Pulse Oximetry (%) 98 Intake Visit Reasons: EP nausea , back pain , body ache ect Intake Note: pt is here for possible uti back pain and body ache Patient Tobacco Use Status: Former Tobacco user Allergies Cortisone Allergy (Intermediate, Uncoded 10/12/23 09:34) redness, hives, rash, swelling Medication List - Last Reconciled 10/12/23 by Manuel Escalante MD acetaminophen 1,000 mg (2 x 500 mg) PO QID PRN atorvastatin 20 mg PO DAILY 90 days duloxetine 30 mg PO DAILY 90 days hydroxyzine HCl 25 mg PO BID ibuprofen 800 mg PO Q8H PRN meclizine 25 mg PO TID PRN propranolol 10 mg PO DAILY Do you need a note to return to daycare/school/sports/work: No HPI EP nausea , back pain , body ache ect HPI Details 58 yr old female presents to the office for a sick visit. Patient is reporting sx of low back pain, abdominal discomfirt and burning on urintation. Increased frequency of urination. No discharge. Low grade fever and chills. Patient is reporting, she is having diarrhea in the past few days. Not working. [facility] Medical History Back pain Incisional pain Mild recurrent major depression Right shoulder pain Plantar fasciitis Anxiety Depression Migraines Vertigo Surgical History History of appendectomy Hx of tubal ligation S/P hernia surgery Family History Mother Mental health disorder Dementia Maternal Aunt Mental health disorder Breast cancer Ovarian cancer Maternal Grandmother Mental health disorder Father Substance use disorder Asthma Maternal Aunt Uterine cancer Social History Housing: Apartment Alcohol intake: never Patient Tobacco Use Status: Former Tobacco user Tobacco use type: Cigarette e-Cigarette/Vaping Use: Never Used Second Hand Smoke Exposure: No service: No Current occupational status: unemployed 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 Cognitive needs: No Hearing needs: No Vision needs: No Physical Exam Vital Signs: Last Vital Signs Temp 97.9 F 10/12/23 09:03 Pulse 75 10/12/23 09:03 BP 122/76 10/12/23 09:03 Pulse Ox 98 10/12/23 09:03 Const General: cooperative and healthy appearing Nutritional Appearance: well nourished Orientation/consciousness: patient oriented x3 Limitations: no limitations HEENT Head: Yes normal to inspection Eyes General: appearance normal, both eyes and all related structures Neck Neck: Yes normal visual inspection Chest Chest palpation & inspection: normal palpation of entire chest wall Resp Effort & Inspection: normal respiratory effort GI Other: Bowel sounds well heard. No organomegaly. Neuro General: patient oriented x3 Assessment & Plan Assessment & Plan (1) Abdominal pain: Code(s): R10.9 - Unspecified abdominal pain Plan: Possible colitis. Antibiotics called in. Pyridium added to the regimen. BW ordered. Will call with results. Orders: Orders Basic Metabolic Panel Today R10.9 - Unspecified abdominal pain Complete Blood Count no Diff Today R10.9 - Unspecified abdominal pain Liver Panel Today R10.9 - Unspecified abdominal pain UA and rflx microscopic Today R10.9 - Unspecified abdominal pain Coding Level of Care Code Est Pt Level 3 (37023) Diagnoses Abdominal pain R10.9
== END 2023-10-12 09:59 | disposition home or self-care (01) ==
PROVIDERS: PCP Internal Medicine; Visit Provider Internal Medicine
DX: R10.9 Unspecified abdominal pain (principal)
CPT/HCPCS: 81003; 99213

== ENCOUNTER 2023-10-12 09:24 | Outpatient (REF) | payer OTHER, SELFPAY ==
[2023-10-12 13:55] LABS: Hematocrit 42.4 % (37.0-47.0); Hemoglobin 13.9 g/dl (12.0-16.0); Mean Corpuscular HGB Conc 32.8 g/dl (31.0-35.0); Mean Corpuscular Hemoglobin 30.2 pg (27.0-33.0); Mean Platelet Volume 10.4 fL (9.4-12.3); Platelet Count 310 X10*3/uL (160-400); Red Blood Count 4.61 X10*6/uL (4.20-5.50); Red Cell Distribution Width 13.3 % (11.0-16.0); White Blood Count 7.1 X10*3/uL (4.8-10.8)
[2023-10-12 14:10] LABS: Appearance Urine Clear; Color Urine Yellow; Glucose Urine UA Negative (Negative); Leukocyte Esterase Urine Negative (Negative); Nitrite Urine Negative (Negative); PH 5.5 (5.0-9.0); Urine Blood Negative (Negative); Urine Ketones Negative (Negative); Urine Protein Negative (Neg-Trace)
[2023-10-12 14:17] LABS: Alanine Aminotransferase 19 U/L (0-31); Albumin Level 4.5 g/dL (3.5-5.0); Alkaline Phosphatase 85 U/L (39-117); Anion Gap 15 (12-20); Aspartate Amino Transferase 23 U/L (5-31); Bilirubin Direct 0.1 mg/dL (0.0-0.5); Bilirubin Total 0.4 mg/dL (0.0-1.0); Blood Urea Nitrogen 10 mg/dL (9-16); Carbon Dioxide 25 mmol/L (22-29); Chloride 105 mmol/L (96-108); Estimated Glomerular Filt Rate > 60; Glucose Random 106 mg/dL (60-115); Potassium 4.4 mmol/L (3.3-5.1); Sodium 141 mmol/L (135-145); Total Protein 7.9 g/dL (6.5-8.0)
== END 2023-10-12 09:25 | disposition home or self-care (01) ==
LOC: HO.HMGCLDS 09:24
PROVIDERS: PCP Internal Medicine; Visit Provider Internal Medicine
DX: Z13.9 Encounter for screening, unspecified (principal); R10.9 Unspecified abdominal pain
CPT/HCPCS: 36415; 80048; 80076; 81003; 85027

== ENCOUNTER 2023-11-12 10:13 | Outpatient (AMB) | payer OTHER, SELFPAY ==
--- NOTE | 2023-11-12 10:34 | A.OFFVIS_ITS ---
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 She is doing well with no concerns. Attempting to eat a healthy diet with calcium and vitamin D and stays active with exercise. Currently not sexually active. Denies any vaginal dryness or irritation. STI testing offered; she declined. Last pap smear; 2022. Last mammogram; 2022. Colonoscopy is UTD. Denies any family history of colon cancer. FH breawst and ovarian cancer M.aunt. [facility] Medical History Back pain Incisional pain Mild recurrent major depression Right shoulder pain Plantar fasciitis Anxiety Depression Migraines Vertigo Surgical History History of appendectomy Hx of tubal ligation S/P hernia surgery Family History Mother Mental health disorder Dementia Maternal Aunt Mental health disorder Breast cancer Ovarian cancer Maternal Grandmother Mental health disorder Father Substance use disorder Asthma Maternal Aunt Uterine cancer Social History Housing: Apartment Alcohol intake: never Patient Tobacco Use Status: Former Tobacco user Tobacco use type: Cigarette e-Cigarette/Vaping Use: Never Used Second Hand Smoke Exposure: No Patient : No service: No Current occupational status: unemployed 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 Cognitive needs: No Hearing needs: No Vision needs: No Female Reproductive History Menstrual Age of Menarche: 15 control method: permanent sterilization Total pregnancies: 6 Full term: 5 Number of Living Children: 5 Ab spontaneous: 1 Date of last pap smear: 10/22/22 (negative) History of abnormal pap smear: Yes (2018 ASCUS 2007 [facility]IL) Date of Mammogram: 04/29/23 Review of Systems Const All systems reviewed & are unremarkable except as noted in HPI and below Reports as per HPI Eyes Reports no additional complaints ENT Reports no additional complaints Card Reports no additional complaints Resp Reports no additional complaints GI Reports as per HPI and Reports no additional complaints Reports as per HPI Musc Reports no additional complaints Skin/Breast Reports as per HPI Neuro Reports no additional complaints Psych Reports no additional complaints Endo Reports no additional complaints Jaciel/Lymph Reports no additional complaints Aller/Immun Reports no additional complaints Physical Exam Vital Signs: Last Vital Signs BP 116/70 11/12/23 10:35 BMI result Body Mass Index 23.7 Const General: cooperative, healthy appearing, no acute distress, well developed and alert Orientation/consciousness: patient oriented x3 HEENT Head: Yes normal to inspection Eyes General: appearance normal, both eyes and all related structures Neck Neck: Yes normal visual inspection Thyroid: Thyroid normal Chest Chest palpation & inspection: normal inspection of the chest and other (no puckering, dimpling, peau de orange, retraction, discharge, masses) Breast/axilla inspection: normal inspection of the breasts Breast/axilla palpation: normal palpation of the breasts Resp Effort & Inspection: normal respiratory effort GI Inspection: Yes normal to inspection Palpation (GI): Soft to palpation Rectal Exam - Female: deferred General: Yes bladder normal to palpation External Female Exam: normal external appearance and normal appearance of the urethra Speculum Exam - Vagina: normal appearance of the vagina, normal palpation, normal vaginal discharge and vagina atrophic Speculum Exam - Cervix: normal appearance of the cervix and normal palpation Bimanual exam- vagina & uterus: normal bimanual exam, normal palpation, uterine size normal, bladder normal to palpation, normal palpation and non-tender Bimanual Exam- Adnexa, other: no masses Skin General skin exam: no rashes or lesions noted Rashes: no rashes Neuro General: patient oriented x3 Cognition (Neuro): normal cognition Extrem General: Yes normal to inspection Psych Attitude: cooperative Thought process: Normal thought process present Assessment & Plan Assessment & Plan (1) Encounter for well woman exam with routine gynecological exam: Code(s): Z01.419 - Encounter for gynecological examination (general) (routine) without abnormal findings Plan Discussed: Current recommendations for pap smears per ASCCP guidelines. Breast awareness, periodic self breast exams and yearly mammogram. Maintain a healthy lifestyle, well balanced diet including Calcium 1,200 mg and Vitamin D 600 IU daily, and routine exercise. Contact the office with any postmenopausal bleeding. Patient verbalizes understanding and agrees to the plan of care. She was given opportunity to ask questions and all questions were answered to the best of my ability. 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 This note is constructed using voice recognition software. While every effort has been made to ensure accuracy, stock plan administrator errors may have been included. Coding Level of Care Code Est Pt Prev Care 40-64y(48294) Diagnoses Encounter for well woman exam with routine gynecological exam Z01.419
[2023-11-12 10:35] VITALS: BP 116/70; BMI 23.7
== END 2023-11-12 11:08 | disposition home or self-care (01) ==
PROVIDERS: PCP Internal Medicine; Visit Provider Advanced Practice Midwife
DX: Z01.419 Encounter for gynecological examination (general) (routine) without abnormal findings (principal)
CPT/HCPCS: 99396

== ENCOUNTER → 2023-11-12 10:13 | Outpatient (BNVA) | payer OTHER, SELFPAY | PROVIDERS: PCP Internal Medicine; Visit Provider Advanced Practice Midwife | DX: Z01.419 Encounter for gynecological examination (general) (routine) without abnormal findings (principal); Z78.0 Asymptomatic menopausal state | CPT/HCPCS: 99396 ==

== ENCOUNTER 2024-03-18 11:21 | Outpatient (AMB) | payer OTHER, SELFPAY ==
--- NOTE | 2024-03-18 11:35 | AM.OFFWIN_ITS ---
Intake Vital Signs 03/18/24 11:36 Height 5 ft 3 in Weight 135 lb BMI 23.9 BP 114/72 Blood Pressure Location Rt brachial Position Sitting Pulse 73 Pulse Source Pulse Oximeter Temp 98.3 F Temp Source Oral Pulse Oximetry (%) 97 Oxygen Delivery Method Room Air Intake Visit Reasons: EP ? sinus infection Intake Note: Patient here for congestion, headaches, head pressure and has been going on for about 7 days. Patient Tobacco Use Status: Former Tobacco user Allergies Cortisone Allergy (Intermediate, Uncoded 03/18/24 11:37) redness, hives, rash, swelling Do you need a note to return to daycare/school/sports/work: No HPI HPI Comments History of Present Illness Details Patient is a 58-year-old female complaining of 8 days of head congestion, head pressure, sinus pain, headaches, a dry cough, throat pain, chills and body aches. She denies any fevers or shortness of breath. She denies any sick contacts. She denies a history of COPD but states she did have some asthma when she lived in [place] but since she moved to the [facility], she has not had asthma anymore. She denies being a current smoker. She tells me she has been taking a morning and nighttime Benadryl product that is for cough and colds without much relief. She states she does have Flonase but she has not been using it. She has never used a Neti pot [facility] Medical History Back pain Incisional pain Mild recurrent major depression Right shoulder pain Plantar fasciitis Anxiety Depression Migraines Vertigo Surgical History History of appendectomy Hx of tubal ligation S/P hernia surgery Family History Mother Mental health disorder Dementia Maternal Aunt Mental health disorder Breast cancer Ovarian cancer Maternal Grandmother Mental health disorder Father Substance use disorder Asthma Maternal Aunt Uterine cancer Social History Housing: Apartment Alcohol intake: never Patient Tobacco Use Status: Former Tobacco user Tobacco use type: Cigarette e-Cigarette/Vaping Use: Never Used Second Hand Smoke Exposure: No service: No Current occupational status: unemployed 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 Cognitive needs: No Hearing needs: No Vision needs: No Female Reproductive History Menstrual Age of Menarche: 15 Review of Systems Const All systems reviewed & are unremarkable except as noted in HPI and below Physical Exam Vital Signs: Last Vital Signs Temp 98.3 F 03/18/24 11:36 Pulse 73 03/18/24 11:36 BP 114/72 03/18/24 11:36 Pulse Ox 97 03/18/24 11:36 Oxygen Delivery Method Room Air 03/18/24 11:36 BMI result Body Mass Index 23.9 Const General: cooperative, healthy appearing, comfortable and no acute distress Orientation/consciousness: patient oriented x3 Limitations: no limitations HEENT Head: Yes normal to inspection Ears: hearing grossly normal bilaterally, external ears normal and TM's normal bilaterally General nose exam: Normal external nose present, Normal nares present and No nasal discharge present Face and sinus: Yes normal facial exam and Yes sinus tenderness (Bilateral maxillary) Mouth: Normal oral and palatal mucosa present and moist mucous membranes Throat: Yes tonsils normal, Yes uvula midline and Yes posterior oropharynx abnormal (Erythema) Eyes General: appearance normal, both eyes and all related structures Neck Neck: Yes normal visual inspection Resp Effort & Inspection: normal respiratory effort, able to speak in complete sentences, no respiratory distress, not tachypneic, no tripod positioning and no use of accessory muscles Skin General skin exam: no rashes or lesions noted Neuro General: patient oriented x3 Extrem General: Yes normal to inspection and Yes no clubbing, cyanosis or edema Assessment & Plan Assessment & Plan (1) Sinus infection: Code(s): J32.9 - Chronic sinusitis, unspecified Qualifiers: Sinusitis location: maxillary Chronicity: acute Recurrence: non- recurrent Qualified Code(s): J01.00 - Acute maxillary sinusitis, unspecified Plan: Vital signs are stable, patient well-appearing, sent 5 day burst of prednisone to help with her symptoms. Did educate patient that most sinus infections are viral and this likely will pass with symptomatic treatment with [id number] medications. Recommended she start using the Flonase and a Neti pot with distilled water. Plan See above Medications: New prednisone 20 mg PO QAM 5 tabs 0RF Coding Level of Care Code Est Pt Level 3 (21947) Diagnoses Acute non-recurrent maxillary sinusitis J01.00 Sinusitis location: maxillary Chronicity: acute Recurrence: non-recurrent
[2024-03-18 11:36] VITALS: BP 114/72; PULSE 73; TEMP 36.8; O2SAT 97; BMI 23.9
== END 2024-03-18 12:19 | disposition home or self-care (01) ==
PROVIDERS: PCP Internal Medicine; Visit Provider Physician Assistant
DX: J01.00 Acute maxillary sinusitis, unspecified (principal)

== ENCOUNTER → 2024-03-18 11:21 | Outpatient (BNVA) | payer OTHER, SELFPAY | PROVIDERS: PCP Internal Medicine; Visit Provider Physician Assistant | DX: J01.00 Acute maxillary sinusitis, unspecified (principal) | CPT/HCPCS: 99212 ==

== ENCOUNTER 2024-06-10 11:59 | Outpatient (REF) | payer OTHER, SELFPAY | END 2024-06-10 12:00 | disposition home or self-care (01) | LOC: HO.MAMMO 11:59 | PROVIDERS: PCP Internal Medicine; Visit Provider Internal Medicine | DX: Z12.31 Encounter for screening mammogram for malignant neoplasm of breast (principal) | CPT/HCPCS: 77063; 77067 ==

== ENCOUNTER → 2024-06-10 12:30 | Outpatient (BNV) | payer OTHER, SELFPAY | PROVIDERS: PCP Internal Medicine; Visit Provider Internal Medicine | DX: Z12.31 Encounter for screening mammogram for malignant neoplasm of breast (principal) | CPT/HCPCS: 77063; 77067 ==

== ENCOUNTER 2024-06-21 08:26 | Outpatient (AMB) | payer OTHER, SELFPAY ==
[2024-06-21 08:34] VITALS: BP 124/80; BMI 23.9
--- NOTE | 2024-06-21 08:34 | MHC.PC.OV ---
Vital Signs 06/21/24 08:34 Height 5 ft 3 in Weight 135 lb BMI 23.9 BP 124/80 Blood Pressure Location Lt brachial Position Sitting Intake Visit Reasons: Annual Exam Intake Note: Patient here for an annual physical exam Pyridine Recovery Operator Required: Yes Pyridine Recovery Operator Language: Fermenter Wine Name: Velia Wood MD Information Interpreted: non-clinical & clinical Accompanied by: Self / Same As Patient Allergies Cortisone Allergy (Intermediate, Uncoded 06/21/24 09:01) redness, hives, rash, swelling Medication List - Last Reconciled 06/21/24 by Velia Wood MD acetaminophen 1,000 mg (2 x 500 mg) PO QID PRN atorvastatin 20 mg PO DAILY 90 days duloxetine 30 mg PO DAILY 90 days hydroxyzine HCl 25 mg PO BID ibuprofen 800 mg PO Q8H PRN meclizine 25 mg PO TID PRN propranolol 10 mg PO DAILY venlafaxine ER mg PO DAILY Tobacco use date assessed: 06/21/24 Dental Screening Dental Screen Date: 06/21/24 Did you have a dental visit in the last 12 months?: Yes Did you have a dental problem in the last 6 months where you did not have access to dental care?: No Was dental information given to patient?: Patient has dentist HPI HPI Comments History of Present Illness Details The patient is a 58-year-old female presenting for an examination and review of health maintenance. She has a history of moderate depression without suicidal ideation, managed by psychiatry with stable medication. She also has a history of anxiety and insomnia, both of which are considered stable on current medical treatment. The patient's management for these conditions has shown satisfactory stabilization under psychiatric supervision. - Last tetanus vaccination was administered in 2016; next due in 2026. - Mammography done this month. - Colonoscopy normal at 50 years old; next screening due at 60. - Declined influenza vaccination during this visit. - Pap smear done 2022 with negative HPV. [facility] Medical History (Updated 06/21/24 @ 10:21 by Velia Wood MD) Back pain Incisional pain Mild recurrent major depression Right shoulder pain Plantar fasciitis Anxiety Depression Migraines Vertigo Surgical History History of appendectomy Hx of tubal ligation S/P hernia surgery Family History Mother Mental health disorder Dementia Maternal Aunt Mental health disorder Breast cancer Ovarian cancer Maternal Grandmother Mental health disorder Father Substance use disorder Asthma Maternal Aunt Uterine cancer Social History Housing: Apartment Alcohol intake: never Patient Tobacco Use Status: Former Tobacco user Tobacco use type: Cigarette e-Cigarette/Vaping Use: Never Used Second Hand Smoke Exposure: No service: No Current occupational status: unemployed 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 1. Little interest or pleasure in doing things: nearly every day 2. Feeling down, depressed, or hopeless: nearly every day 3. Trouble falling or staying asleep, or sleeping too much: nearly every day 4. Feeling tired or having little energy: nearly every day 5. Poor appetite or overeating: more than half the days 6. Feeling bad about yourself - or that you are a failure or have let yourself or your family down: several days 7. Trouble concentrating on things, such as reading the newspaper or watching television: several days 8. Moving or speaking so slowly that other people could have noticed. Or the opposite - being so fidgety or restless that you have been moving around a lot more than usual: several days 9. Thoughts that you would be better off or of hurting yourself in some way: not at all Total score: 17 Depression Screening Interpretation: Positive (no suicidal thoughts) Depression Screening Follow-up: Existing condition, In treatment, Community Mental Health Worker F/U and Follow-up Visit Requested Depression Screening Done: Yes 07264 - PHQ-9 Billing: Yes Source: Developed by Drs. Ghulam Chen, Enid Mosley, Helio Casas and colleagues, with an educational morenita from [employer]. Thrive Questionnaire Date Thrive assessed: 06/21/24 I am a: Patient What is your living situation today?: I have a steady place to live Within the past 12 months, did the food you bought not last and you didn't have the money to get more?: Never true Within the past 12 months, did you worry whether your food would run out before you got money to buy more?: Never true Do you have trouble paying for medicines?: No Do you have trouble getting transportation to medical appointments?: Yes Do you have trouble paying your heating and electricity bill?: No Do you have trouble taking care of your child, family member or friend?: No Do you have trouble with day-to-day activities such as bathing, preparing meals, shopping, managing finances, etc.?: Yes Are you currently unemployed and looking for a job?: Yes Are you interested in more education?: Yes Please select the resources that you would like help with: Job search/training and None Currently or been in a relationship where the following occur: No concerns reported THRIVE Score: 1 AUDIT C Alcohol Use Questionnaire (AUDIT-C) 1. How often do you have a drink containing alcohol?: Never Total Score: 0 Score Reviewed/Action Taken: No PAULINE-7 AMB Questionnaire PAULINE-7 Date PAULINE - 7 assessed: 06/21/24 Feeling nervous, anxious, or on edge: 1 = Several days Not being able to stop or control worryin = Several days Worrying too much about different things: 1 = Several days Trouble relaxin = Several days Being so restless that it is hard to sit still: 1 = Several days Becoming easily annoyed or irritable: 1 = Several days Feeling afraid as if something awful might happen: 1 = Several days Total PAULINE-7 score (0-4 normal; 5-9 mild; 10-14 moderate; 15-21 severe): 7 Source: Developed by Drs. Ghulam hCen, Enid Mosley, Helio Casas and colleagues, with an educational morenita from [employer]. PAULINE-7 Assessment Billing PAULINE-7 Assessment Tool: PAULINE-7 Assessment 68825 Review of Systems Const All systems reviewed & are unremarkable except as noted in HPI and below Card Denies chest pain at rest, Denies chest pain with activity, Denies edema, Denies irregular heart rhythm, Denies claudication, Denies dyspnea, Denies dyspnea on exertion, Denies orthopnea, Denies paroxysmal nocturnal dyspnea and Denies slow heart rate Resp Denies cough, Denies dyspnea and Denies dyspnea on exertion GI Denies abdominal pain, Denies change in bowel habits, Denies excessive flatus, Denies nausea and Denies vomiting Denies urinary incontinence, Denies urinary hesitancy and Denies urinary urgency Musc Denies abnormal gait, Denies atrophy, Denies deformity and Denies limited range of motion Skin/Breast Denies bleeding lesions, Denies changing lesions and Denies rash Neuro Denies abnormal gait and Denies lack of coordination Physical exam (Primary Care) Vital Signs: Last Vital Signs BP 124/80 06/21/24 08:34 BMI result Body Mass Index 23.9 Tobacco/Smoking Status: Tobacco use Status Tobacco use date assessed 06/21/24 06/21/24 08:37 Patient Tobacco Use Status Former Tobacco user 06/21/24 08:37 Tobacco use type Cigarette 06/21/24 08:37 e-Cigarette/Vaping Use Never Used 06/21/24 08:37 PHQ-9: PHQ-9 Score PHQ-9: Total score 17 06/21/24 09:07 Depression Screening Interpretation: Positive (no suicidal thoughts) Depression Screening Follow-up: Existing condition, In treatment, Community Mental Health Worker F/U and Follow-up Visit Requested Thrive Assessment: Date of Thrive Assessment Date Thrive assessed 06/21/24 06/21/24 08:37 Currently or been in a relationship where the following occur: No concerns reported [facility] Head: Yes normal to inspection, Yes normocephalic and Yes atraumatic Ears: external ears normal Eyes General: appearance normal, both eyes and all related structures Eyelids: Yes eyelids normal Conjunctivae: conjunctivae normal Neck Neck: Yes normal visual inspection and Yes supple Resp Effort & Inspection: normal respiratory effort Auscultation: clear to auscultation bilaterally Cardio Jugular venous distension: no JVD Rate: regular rate Rhythm: regular rhythm Heart sounds: S1 normal heart sound present and S2 normal heart sound present GI Inspection: Yes normal to inspection Palpation (GI): Soft to palpation and nontender Auscultation: normal bowel sounds Skin General skin exam: no rashes or lesions noted Neuro General: no focal motor deficits Extrem General: Yes full ROM Psych Appearance: grossly normal Office Procedures Flu Questionnaire Does the patient have a severe egg allergy?: No Immunizations Fluarix Triv [id number] (PF) 45 mcg (15 mcg x 3)/0.5 mL IM syringe Performing Provider: Velia Wood MD [facility] Documented (not given) by: EDIE Carlos on 06/21/24 08:37 Reason Not Given: Patient Refused Coding Level of Care Code Complex EM visit Add On G2211 Diagnoses Physical exam Z00.00 Moderate recurrent major depression F33.1 Additional Codes PAULINE-7 Assessment Billing - PAULINE-7 Assessment Tool: PAULINE-7 Assessment [id number] ([id number]) PHQ-9 - 79812 - PHQ-9 Billing: Yes ([id number]) Time Spent (min) 30 Assessment & Plan Assessment & Plan (1) Physical exam: Code(s): Z00.00 - Encounter for general adult medical examination without abnormal findings Category: Medical (2) Moderate recurrent major depression: Code(s): F33.1 - Major depressive disorder, recurrent, moderate Category: Medical Plan - Continue current medication and follow-up with psychiatry for depression, anxiety, and insomnia. - Proceed with scheduled mammography for next year. - Review tetanus vaccination schedule; no immediate actions required. - Encourage adherence to the health maintenance plan, including regular screening and vaccinations. - Discussed options and patient declined the influenza vaccination at this time. Patient was informed and verbally consented to the use of an ambient scribe for clinic note documentation during this visit. During the visit, I discussed the patient's stable condition of depression, anxiety, and insomnia, emphasizing the importance of continuous psychiatric care. I reiterated the significance of scheduled health maintenance screenings like mammography and Pap smears, and confirmed that the next tetanus booster is not required until 2026. The patient expressed understanding and agreed to continue with her current psychiatric management while declining the influenza vaccine. Recommendations were provided regarding the importance of early detection through screening and maintaining scheduled vaccinations. Orders: Orders Influenza [id number] Immunization Today Z23 - Encounter for immunization Lipid Panel Today E78.5 - Hyperlipidemia, unspecified Comprehensive [place] Path. Panel Fast Today Z00.00 - Encounter for general adult medical examination without abnormal findings Patient Instructions: - Continue current medication as directed by psychiatry. - Complete the scheduled mammography this month. - No immediate action required for tetanus vaccination until 2026. - Attend regular health maintenance screenings as advised. - Contact healthcare provider with any new or concerning symptoms. - Follow psychiatric advice for managing anxiety, depression, and insomnia.
== END 2024-06-21 09:11 | disposition home or self-care (01) ==
PROVIDERS: PCP Internal Medicine; Visit Provider Internal Medicine
DX: Z00.00 Encounter for general adult medical examination without abnormal findings (principal); F33.1 Major depressive disorder, recurrent, moderate

== ENCOUNTER → 2024-06-21 08:26 | Outpatient (BNVA) | payer OTHER, SELFPAY | PROVIDERS: PCP Internal Medicine; Visit Provider Internal Medicine | DX: Z00.00 Encounter for general adult medical examination without abnormal findings (principal); F33.1 Major depressive disorder, recurrent, moderate | CPT/HCPCS: 96127; 99396 ==

== ENCOUNTER 2024-06-23 10:25 | Outpatient (REF) | payer OTHER, SELFPAY ==
[2024-06-23 12:00] LABS: Alanine Aminotransferase 37 U/L (0-31); Albumin Level 4.2 g/dL (3.5-5.0); Alkaline Phosphatase 79 U/L (39-117); Anion Gap 9 (12-20); Aspartate Amino Transferase 33 U/L (5-31); Bilirubin Total 0.3 mg/dL (0.0-1.0); Blood Urea Nitrogen 9 mg/dL (9-16); Calcium 9.7 mg/dL (8.4-10.2); Carbon Dioxide 29 mmol/L (22-29); Chloride 109 mmol/L (96-108); Cholesterol 209 mg/dL (<200); Estimated Glomerular Filt Rate > 60; Glucose Fasting 101 mg/dL (60-99); HDL Cholesterol 47 mg/dL (>40); LDL Cholesterol Calculated 123 mg/dL (<100); Potassium 4.3 mmol/L (3.3-5.1); Sodium 143 mmol/L (135-145); Total Protein 7.6 g/dL (6.5-8.0); Triglycerides 197 mg/dL (<150)
== END 2024-06-23 10:26 | disposition home or self-care (01) ==
LOC: HO.LAB 10:25
PROVIDERS: PCP Internal Medicine; Visit Provider Internal Medicine
DX: Z00.00 Encounter for general adult medical examination without abnormal findings (principal); E78.5 Hyperlipidemia, unspecified
CPT/HCPCS: 36415; 80053; 80061

== ENCOUNTER 2024-08-09 10:02 | Emergency (ER) | payer OTHER, SELFPAY ==
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
[2024-08-09 10:09] VITALS: BP 127/91; PULSE 75; RESP 18; TEMP 36.8; O2SAT 98; BMI 22.9
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
[2024-08-09 11:29] LABS: MANUAL DIFF FLAG NO
[2024-08-09 11:30] LABS: Basophils Percent Auto 0.5 % (0-2); Eosinophils Percent Auto 0.6 % (0-4); Hematocrit 42.7 % (37.0-47.0); Hemoglobin 14.3 g/dl (12.0-16.0); Imm Gran Abs Auto 0.01 X10*3/uL (0.00-0.03); Imm Gran Pct Auto 0.2 % (0.0-0.4); Lymphocytes Absolute Auto 1.9 X10*3/uL (1.2-4.9); Lymphocytes Percent Auto 30.3 % (20-40); Mean Corpuscular HGB Conc 33.5 g/dl (31.0-35.0); Mean Corpuscular Hemoglobin 30.4 pg (27.0-33.0); Mean Corpuscular Volume 90.7 fL (80.0-98.0); Mean Platelet Volume 9.4 fL (9.4-12.3); Monocytes Absolute Auto 0.4 X10*3/uL (0.1-1.2); Monocytes Percent Auto 5.7 % (2-11); Neutrophils Absolute Auto 3.9 x10*3/uL (2.0-8.3); Neutrophils Percent Auto 62.7 % (45-73); Platelet Count 271 X10*3/uL (160-400); Red Blood Count 4.71 X10*6/uL (4.20-5.50); Red Cell Distribution Width 12.8 % (11.0-16.0); White Blood Count 6.2 X10*3/uL (4.8-10.8)
[2024-08-09 11:50] LABS: Anion Gap 14 (12-20); Blood Urea Nitrogen 11 mg/dL (9-16); Calcium 9.7 mg/dL (8.4-10.2); Carbon Dioxide 26 mmol/L (22-29); Chloride 106 mmol/L (96-108); Creatinine Clr Calc Pharmacy 69.6; Estimated Glomerular Filt Rate > 60; Glucose Random 111 mg/dL (60-115); Potassium 4.1 mmol/L (3.3-5.1); Sodium 142 mmol/L (135-145)
[2024-08-09] MEDS: iohexoL 350 MG/ML 100 ML INFUS..BTL IV (12:01)
[2024-08-09 12:58] VITALS: BP 110/74; PULSE 60; RESP 14; TEMP 36.7; O2SAT 98
[2024-08-09 13:08] VITALS: BP 110/74; PULSE 60; RESP 14; TEMP 36.7; O2SAT 98
--- OUTSIDE RECORDS SUMMARY | 2024-08-09 14:02 | XMS_ITS | Encounter Summary ---
Author Organization [facility] Address [address] [place] [address] Care Team Providers Care Public Health Officer Name Role Phone Rebecca Goode OD Primary Care Provider [phone] Encounter Details Date Type Department Care Team (Latest Contact Info) Description 03/28/2022 Abstract [facility] CONVERSIONS Dental, Provider, DDS Social History Tobacco Use Types Packs/Day Years Used Date Smoking Tobacco: Never Assessed Comments Unknown Sex and Gender Information Value Date Recorded Sex Assigned at Female 03/31/2022 10:14 AM EDT Legal Sex Female 10:14 AM EDT Gender Identity Female 03/31/2022 10:14 AM EDT Sexual Orientation Straight 03/31/2022 10 :14 AM EDT documented as of this encounter Plan of Treatment Upcoming Encounters Date Type Department Care Team (Late st Contact Info) Description 09/30/2024 10:00 AM EDT Office Visit [facility] ADULT DENTAL [address] [place] [address] Abdulaziz, Padmini [address] [place] [address] documented as of this encounter Visit Diagnoses Not on filedocumented in this encounter Care Teams Public Health Officer Relationship Specialty Start Date End Date Rebecca Goode OD [address] [place] [id number] PCP - General Optometry 07/14/18 06/07/23 documented as of this encounter
--- OUTSIDE RECORDS SUMMARY | 2024-08-09 14:02 | XMS_ITS | Encounter Summary ---
Author Organization [facility] Address [address] [place] [address] Care Team Providers Care Mail Delivery Supervisor Name Role Phone Rebecca Goode OD Primary Care Provider [phone] Encounter Details Date Type Department Care Team (Latest Contact Info) Description 04/12/2019 Abstract [facility] CONVERSIONS Dental, Provider, DDS Social History [...] Description 09/30/2024 10:00 AM EDT Office Visit [facility] ADULT DENTAL [address] [place] [address] Abdulaziz, Padmini [address] [place] [address] documented as of this encounter Visit Diagnoses Not on filedocumented in this encounter Care Teams Mail Delivery Supervisor Relationship Specialty Start Date End Date Rebecca Goode OD [address] [place] [id number] PCP - General Optometry 07/14/18 06/07/23 documented as of this encounter
--- OUTSIDE RECORDS SUMMARY | 2024-08-09 14:02 | XMS_ITS | Encounter Summary ---
Author Organization [facility] Address [address] [place] [address] Care Team Providers Care Hand Stitcher Name Role Phone Rebecca Goode OD Primary Care Provider [phone] Encounter Details Date Type Department Care Team (Latest Contact Info) Description 02/05/2021 Abstract [facility] CONVERSIONS Dental, Provider, DDS Social History [...] Description 09/30/2024 10:00 AM EDT Office Visit [facility] ADULT DENTAL [address] [place] [address] Abdulaziz, Padmini [address] [place] [address] documented as of this encounter Visit Diagnoses Not on filedocumented in this encounter Care Teams Hand Stitcher Relationship Specialty Start Date End Date Rebecca Goode OD [address] [place] [id number] PCP - General Optometry 07/14/18 06/07/23 documented as of this encounter
--- OUTSIDE RECORDS SUMMARY | 2024-08-09 14:02 | XMS_ITS | Encounter Summary ---
Author Organization [facility] Address [address] [place] [address] Care Team Providers Care Mandarin Teacher Name Role Phone Rebecca Goode OD Primary Care Provider [phone] Encounter Details Date Type Department Care Team ([facility] Contact Info) Description 07/31/2022 Abstract [facility] ADULT DENTAL [address] [place] [address] Titus Heck DMD [address] [place] [address] Social History Tobacco Use Types Packs/Day Years Used Date Smoking Tobacco: Never Smokeless Tobacco: Never Alcohol Use Standard Drinks/Week Comments Never 0 (1 standard drink = 0.6 oz pur e alcohol) Comments Unknown Sex and Gender Information Value Date Recorded Sex Assigned at Female 03/31/2022 10:14 AM EDT Legal Sex Female 10:14 AM EDT Gender Identity Female 03/31/2022 10:14 AM EDT Sexual Orientation Straight 03/31/2022 10 :14 AM EDT COVID-19 Exposure Response Date Recorded In the last 10 days, have yo u been in contact with someone who was confirmed or suspected to have Coronavirus/COVID-19? No / Unsure 07/18/2022 8:16 AM EST documented as of this encounter Plan of Treatment Upcoming Encounters Date Type Department Care Team ([facility] Contact Info) Description 09/30/2024 10:00 AM EDT Office Visit [facility] ADULT DENTAL [address] [place] [address] Padmini Cintron [address] [place] [address] documented as of this encounter Visit Diagnoses Not on filedocumented in this encounter Care Teams Mandarin Teacher Relationship Specialty Start Date End Date Rebecca Goode OD [address] [place] [phone] PCP - General Optometry 07/14/18 06/07/23 documented as of this encounter
--- OUTSIDE RECORDS SUMMARY | 2024-08-09 14:02 | XMS_ITS | Encounter Summary ---
Author Organization [facility] Address [address] [place] [address] [address] [place] [address] Care Team Providers Care Power Barker Operator Name Role Phone Rebecca Goode OD Primary Care Provider [phone] Encounter Details Date Type Department Care Team (Late st Contact Info) Description 04/28/2022 Abstract [facility] ADULT DENTAL [address] [place] [address] Dental, Provider, DDS Social History Tobacco Use [...] Encounters Date Type Department Care Team (Late Contact Info) Description 09/30/2024 10:00 AM EDT Office Visit [facility] ADULT DENTAL [address] [place] [address] Padmini Cintron [address] [place] [address] documented as of this encounter Procedures Procedure Name Priority Date/Time Associated Diagnosis Comments 21 BB(V) COMPOSITE FILLING Routine 04/28/2022 12:00 AM EST 11 MIDF(V) COMPOSITE FILLING Routine 04/28/2022 12:00 AM EST 29 B(V) COMPOSITE FILLING Routine 04/28/2022 12:00 AM EST 28 B(V) COMPOSITE FILLING Routine 04/28/2022 12:00 AM EST 27 F(V) COMPOSITE FILLING Routine 04/28/2022 12:00 AM EST 9 MIL COMPOSITE FILLING Routine 04/28/2022 12:00 AM EST 8 MIL COMPOSITE FILLING Routine 04/28/2022 12:00 AM EST 7 DL COMPOSITE FILLING Routine 04/28/2022 12:00 AM EST 6 L COMPOSITE FILLING Routine 04/28/2022 12:00 AM EST 31 O AMALGAM FILLING Routine 04/28/2022 12:00 AM EST 29 DO AMALGAM FILLING Routine 04/28/2022 12:00 AM EST 14 LO AMALGAM FILLING Routine 04/28/2022 12:00 AM EST 13 O AMALGAM FILLING Routine 04/28/2022 12:00 AM EST 12 O AMALGAM FILLING Routine 04/28/2022 12:00 AM EST 6 ROOT CANAL Routine 04/28/2022 12:00 AM EST 18,19,20,30 PARTIAL DENTURE - RESIN Routine 07/16/2016 12:00 AM EST 2,3,4,5,15 PARTIAL DENTURE - RESIN Routine 07/16/2016 12:00 AM EST documented in this encounter Visit Diagnoses Not on filedocumented in this encounter Care Teams Power Barker Operator Relationship Specialty Start Date End Date Rebecca Goode OD [address] [place] [id number] PCP - General Optometry 07/14/18 06/07/23 documented as of this encounter
--- OUTSIDE RECORDS SUMMARY | 2024-08-09 14:02 | XMS_ITS | Clinical Summary ---
Author Organization [employer] Address [address] [facility] [address] [place] [address] Care Team Providers Care Production Inspector Name Role Phone Unavailable Primary Care Provider Unavailabl e Allergies Active Allergy Reactions Criticality Noted Date Comments Cortisone Rash Low 05/13/2022 Medications docusate sodium (Colace) 100 MG capsule take 1 capsule by oral route every day at bedtime as needed Active fluocinonide (Lidex) 0.05 % cream Apply topically. Active ketotifen (Zaditor) 0.025 % ophthalmic solution Administer 1 drop into affected eye(s) every 12 (twelve) hours. 9 Active multivitamin (Theragran) tablet Active omeprazole (PriLOSEC) [address] capsule Take by mouth. A ctive polyvinyl alcohol (Liquifilm Tears) 1.4 % ophthalmic solution one drop in each eye 3 times a day 9 Active chlorhexidine (Peridex) 0.12 % solution Place 15 mL into mouth between cheek and gum every 12 (twelve) hours. 1 Active sertraline (Zoloft) 100 MG tablet Take by mouth. Activ e psyllium (Metamucil) 0.36 g capsule Activ e ibuprofen 600 MG tablet Take by mouth. Activ e atorvastatin (Lipitor) 20 MG tablet Take 20 mg by mouth in the morning. 3 Active DULoxetine (Cymbalta) [address] capsule Take 60 mg by mouth in the morning. 3 Active hydrOXYzine HCl (Atarax) 25 MG tablet TAKE 1-2 TABLET BY MOUTH AT BEDTIME NEEDED INSOMNIA, ANXIETY 3 Active meclizine (Antivert) 25 MG tablet Take 1 tablet by mouth every 8 (eight) hours. Active cefuroxime (Ceftin) 250 MG tablet Take 250 mg by mouth 2 times daily. 2 Active propranolol (Inderal) 10 MG tablet Take 2 tablets by mouth every 8 (eight) hours. Active phenazopyridine (Pyridium) 200 MG tablet Take 200 mg by mouth with breakfast, with lunch, and with evening meal. 4 Active venlafaxine XR (Effexor XR) 37.5 MG 24 hr capsule Take 37.5 mg by mouth Once per day. 5 Active Active Problems Problem Noted Date Diagnosed Date Xerostomia 09/18/2023 Dental plaque 02/17/2023 Missing teeth, acquired 02/17/2023 Generalized gingival recession 02/17/2023 Encounters Date Type Department Care Team Description 06/10/2024 1:30 PM EST Office Visit [facility] [address] [place] [address] Titus Heck DMD from Last 3 Months Immunizations Name Administration Dates Next Due Influenza Injectable Quadriv alant Preservative Free IIV4 MDCK 02/28/2019,03/05/2017 Influenza injectable quadriv alent IIV4 with preservative 03/31/2017,03/19/2016 Influenza injectable quadrivalent preservative f ree 03/17/2022,03/26/2021 Pneumococcal Polysaccharide PPSV23 12/26/2010 Tdap 07/01/2016 Social History Tobacco Use Types Packs/Day Years Used Date Smoking Tobacco: Never Smokeless Tobacco: Never Tobacco Cessation:Counseling Given: Not Answered Alcohol Use Standard Drinks/Week Comments Never 0 (1 standard drink = 0.6 oz pur e alcohol) Comments Unknown Sex and Gender Information Value Date Recorded Sex Assigned at Female 03/31/2022 10:14 AM EDT Legal Sex Female 10:14 AM EDT Gender Identity Female 03/31/2022 10:14 AM EDT Sexual Orientation Straight 03/31/2022 10 :14 AM EDT Last Filed Vital Signs Vital Sign Reading Time Taken Comments Blood Pressure 114/68 03/29/2024 11:32 AM EDT Pulse 66 09/18/2023 9:33 AM EDT Temperature - - Respiratory Rate - - Oxygen Saturation - - Inhaled Oxygen Concentration - - Weight - - Height - - Body Mass Index - - Plan of Treatment Upcoming Encounters Date Type Department Care Team (Late st Contact Info) Description 09/30/2024 10:00 AM EDT Office Visit [facility] [address] [place] [address] Padmini Cintron [address] [place] [address] Health Maintenance Due Date Last Done Comments CT Colonography 1965 Colonoscopy 1965 Colorectal Cancer Screening 1965 Depression Screening 1965 FIT DNA/Cologuard 1965 FIT 1965 FOBT 1965 HIV Screening 1965 SDOH Screening 1965 Sigmoidoscopy 1965 Alcohol/Substance Use Screening 1977 Hepatitis C Screening 09/23/1983 Hepatitis B Vaccines (1 of 3 - 19+ 3-dose series) 1984 Pap Smear 1986 Cervical Cancer Screening 09/23/1995 HPV/Cotest 09/23/1995 Mammogram 2005 Pneumococcal Vaccine: 50+ Years (2 of 2 - PCV) 09/23/2015 12/26/2010 Zoster Vaccines (1 of 2) 09/23/2015 Dental Oral Exam 09/03/2023 03/03/2023, 03/28/2022 COVID-19 Vaccine (1 - season) 2024 Influenza Vaccine (#1) 2024 , 03/26/2021, 02/28/2019, Additional history exists Dental X-Ray: Full Mouth 02/07/2024 02/05/2021 Dental X-Ray: Bitewings 08/25/2024 08/25/19 24, 02/17/2023, 03/28/2022 Dental Prophylaxis 09/28/2024 03/29/2024, 0 09/18/2023, 02/17/2023, Additional history exists Tobacco Screening 06/10/2025 06/10/2024 DTaP/Tdap/Td Vaccines (2 - Td or Tdap) 07/01/2026 07/01/2016 RSV Patients and Patients Aged 60 years or older (1 - 1-dose 75+ series) 2040 HIB Vaccines Aged Out No longer eligi ble based on patient's age to complete this topic HPV Vaccines Aged Out No longer eligi ble based on patient's age to complete this topic Hepatitis A Vaccines Aged Out No long er eligible based on patient's age to complete this topic IPV Vaccines Aged Out No longer eligi ble based on patient's age to complete this topic Meningococcal Vaccine Aged Out No monique stuart eligible based on patient's age to complete this topic RSV under 20 months Aged Out No longe r eligible based on patient's age to complete this topic Rotavirus Vaccines Aged Out No longer eligible based on patient's age to complete this topic Procedures Procedure Name Priority Date/Time Associated Diagnosis Comments CASE PRESENTATION, DETAILED AND EXTENSIVE TREATMENT PLANNING Routine 06/10/2024 1:30 PM EST 6 DL RESIN-BASED COMPOSITE - 2 SURF, ANTERIOR Routine 06/10/2024 1:30 PM EST Full PROPHYLAXIS - ADULT Routine 024 11:00 AM EDT Dental plaque BITEWING - SINGLE RADIOGRAPHIC IMAGE Routine 08/25/2023 2:30 PM EDT Acute non-recurrent maxillary sinusitis PERIODIC ORAL EVALUATION - ESTABLISHED PATIENT Routine 03/03/2023 12:30 PM EDT from Last 3 Months or Most Recently Relevant to Health Maintenance Insurance [facility] [employer] STAND ADULT [facility] ST[place] AD[place]
== END 2024-08-09 13:08 | disposition home or self-care (01) ==
PROVIDERS: Registered Nurse Emergency; Emergency Provider Student in an Organized Health Care Education/Training Program; PCP Internal Medicine
DX: S89.91XA Unspecified injury of right lower leg, initial encounter (principal); R10.9 Unspecified abdominal pain; R19.7 Diarrhea, unspecified; M25.561 Pain in right knee; R11.2 Nausea with vomiting, unspecified; V43.62XA Car passenger injured in collision with other type car in traffic accident, initial encounter; Y93.9 Activity, unspecified; Y92.410 Unspecified street and highway as the place of occurrence of the external cause; Y99.8 Other external cause status; Z79.899 Other long term (current) drug therapy; Z87.891 Personal history of nicotine dependence
CPT/HCPCS: 36415; 73564; 74177; 80048; 85025; 99283; 99284; Q9967

== ENCOUNTER → 2024-08-09 11:15 | Outpatient (BNV) | payer OTHER, SELFPAY | PROVIDERS: Emergency Provider Student in an Organized Health Care Education/Training Program; PCP Internal Medicine; Visit Provider Radiology Diagnostic Radiology | DX: R10.9 Unspecified abdominal pain (principal); M25.561 Pain in right knee; V89.2XXA Person injured in unspecified motor-vehicle accident, traffic, initial encounter | CPT/HCPCS: 73564; 74177 ==

== ENCOUNTER 2024-09-09 11:14 | Outpatient (AMB) | payer OTHER, SELFPAY ==
--- NOTE | 2024-09-09 11:42 | MHC.OFFWIV ---
Intake Vital Signs 09/09/24 11:57 Height 5 ft 3 in Weight 139 lb 2 oz BMI 24.6 BP 110/80 Blood Pressure Location Lt brachial Position Sitting Pulse 77 Pulse Source Pulse Oximeter Temp 98.3 F Temp Source Oral Pulse Oximetry (%) 96 Oxygen Delivery Method Room Air Intake Visit Reasons: EP Sore throat, headache, congestion Intake Note: Pt presents to the office today for sore throat, headache, body aches, chills, and sinus pressure x3 days. Patient Tobacco Use Status: Former Tobacco user Allergies Cortisone Allergy (Intermediate, Uncoded 09/09/24 12:00) redness, hives, rash, swelling HPI EP Sore throat, headache, congestion HPI Details This is a 58-year-old female patient who presents to the walk-in clinic today with a report of a 3-4 day history of upper respiratory symptoms. She reports body ache, headache, productive cough with thick yellow sputum. She has been taking [id number] Tylenol with minimal relief. Denies known exposure to sick contacts. [facility] Medical History Back pain Incisional pain Mild recurrent major depression Right shoulder pain Plantar fasciitis Anxiety Depression Migraines Vertigo Surgical History History of appendectomy Hx of tubal ligation S/P hernia surgery Family History Mother Mental health disorder Dementia Maternal Aunt Mental health disorder Breast cancer Ovarian cancer Maternal Grandmother Mental health disorder Father Substance use disorder Asthma Maternal Aunt Uterine cancer Social History Housing: Apartment Alcohol intake: never Patient Tobacco Use Status: Former Tobacco user Tobacco use type: Cigarette e-Cigarette/Vaping Use: Never Used Second Hand Smoke Exposure: No service: No Current occupational status: unemployed 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 Cognitive needs: No Hearing needs: No Vision needs: No Female Reproductive History Menstrual Age of Menarche: 15 Review of Systems Const All systems reviewed & are unremarkable except as noted in HPI and below Physical Exam Vital Signs: Last Vital Signs Temp 98.3 F 09/09/24 11:57 Pulse 77 09/09/24 11:57 BP 110/80 09/09/24 11:57 Pulse Ox 96 09/09/24 11:57 Oxygen Delivery Method Room Air 09/09/24 11:57 BMI result Body Mass Index 24.6 Const General: cooperative, healthy appearing, comfortable and no acute distress HEENT Head: Yes normal to inspection Ears: hearing grossly normal bilaterally and TM's normal bilaterally General nose exam: Normal external nose present Face and sinus: Yes sinus tenderness Mouth: Normal oral and palatal mucosa present Throat: Yes posterior oropharynx normal Neck Neck: Yes no lymphadenopathy Resp Effort & Inspection: normal respiratory effort Auscultation: clear to auscultation bilaterally Cardio Rate: regular rate Rhythm: regular rhythm Skin General skin exam: no rashes or lesions noted Extrem General: Yes capillary refill normal and Yes no clubbing, cyanosis or edema Psych Appearance: grossly normal Mental Status: mental status grossly normal Speech and movement: Normal speech and movement present Results AMB Rapid Strep AMB Rapid Strep Negative Last Edit by Sugar Saunders CMA on 09/09/24 12:11 Results Reviewed Results Reviewed: Laboratory Last Values Strep Scn Rapid Clinic Negative 09/09/24 12:10 Assessment & Plan Assessment & Plan (1) Upper respiratory infection: Code(s): J06.9 - Acute upper respiratory infection, unspecified Qualifiers: URI type: unspecified URI Qualified Code(s): J06.9 - Acute upper respiratory infection, unspecified Plan: Symptoms consistent with an upper respiratory infection. COVID/flu/RSV swab was obtained, and patient aware she will be notified of these results once available. Rapid strep in the office was negative. I will send azithromycin Rx to patient's pharmacy, but encouraged her to await viral panel results prior to filling, given ineffectiveness of antibiotics for viral illnesses. Patient verbalizes understanding of this and agrees to plan. She will purchased some [id number] cold/flu medication to utilize for symptom management. If she does not improve with treatment/conservative measures, she can return to the clinic for further evaluation. Patient agrees to plan discussed. Orders: Orders AMB Rapid Strep Screen Today Z13.9 - Encounter for screening, unspecified SARS-CoV2/FLU/RSV Today J06.9 - Acute upper respiratory infection, unspecified Medications: New azithromycin For 250 mg dose pack: take 500 mg today (day 1), then 250 mg for 4 days (days 2-5) PO Do not take Hydroxyzine while taking this medication. 6 tabs 0RF J06.9 - Acute upper respiratory infection, unspecified Coding Level of Care Code Est Pt Level 4 (07551) Diagnoses Upper respiratory tract infection, unspecified type J06.9 URI type: unspecified URI
[2024-09-09 11:57] VITALS: BP 110/80; PULSE 77; TEMP 36.8; O2SAT 96; BMI 24.6
--- OUTSIDE RECORDS SUMMARY | 2024-09-09 12:13 | XMS_ITS | Clinical Summary ---
Author Organization [employer] Address [address] [facility] 7[address] [place] [address] Care Team Providers Care Food Processing Plant Manager Name Role Phone Unavailable Primary Care Provider [...] teeth, acquired 02/17/2023 Generalized gingival recession 02/17/2023 Immunizations Name Administration Dates Next Due Influenza [...] Description 09/30/2024 10:00 AM EDT Office Visit [facility] [address] [place] [address] Padmini Cintron [address] [place] [address] Health Maintenance Due Date Last Done Comments [...] Oral Exam 09/03/2023 03/03/2023, 03/28/2022 COVID-19 Vaccine ( season) 2024 Influenza Vaccine (#1) 2024 , [...] Procedure Name Priority Date/Time Associated Diagnosis Comments Full PROPHYLAXIS - ADULT Routine 024 11:00 AM EDT Dental plaque BITEWING - SINGLE RADIOGRAPHIC IMAGE Routine 08/25/2023 2:30 PM EDT Acute non-recurrent maxillary sinusitis PERIODIC ORAL EVALUATION - ESTABLISHED PATIENT Routine 03/03/2023 12:30 PM EDT from Last 3 Months or Most Recently Relevant to Health Maintenance Insurance [facility] MEDICAID STAND ADULT [facility] MEDICA[facility] STAND ADULT
--- OUTSIDE RECORDS SUMMARY | 2024-09-09 12:13 | XMS_ITS | Encounter Summary ---
Author Organization [employer] [facility] Address [address] [place] [address] [address] [place] [address] Care Team Providers Care Craft Recruiter Name Role Phone Rebecca Goode OD Primary Care Provider [phone] Encounter Details Date Type Department Care Team (Late st Contact Info) Description 04/28/2022 Abstract [facility] [address] [place] [address] Dental, Provider, DDS Social History Tobacco Use [...] Description 09/30/2024 10:00 AM EDT Office Visit [facility] [address] [place] [address] Padmini Cintron [address] [place] [address] documented as of this encounter Procedures Procedure [...] on filedocumented in this encounter Care Teams Craft Recruiter Relationship Specialty Start Date End Date Rebecca Goode OD [address] [place] [id number] PCP - General Optometry 07/14/18 06/07/23 documented as of this encounter
--- OUTSIDE RECORDS SUMMARY | 2024-09-09 12:13 | XMS_ITS | Encounter Summary ---
Author Organization [facility] Address [address] [facility] [address]t [place] [address] Care Team Providers Care Registered Physical Therapist Name Role Phone Rebecca Goode OD Primary Care Provider [phone] Encounter Details Date Type Department Care Team ([facility] Contact Info) Description 07/31/2022 Abstract [facility] [address] [place] [address] Titus Heck DMD [address] [place] [address] Social History Tobacco Use Types Packs/Day Years [...] Upcoming Encounters Date Type Department Care Team ([facility] Contact Info) Description 09/30/2024 10:00 AM EDT Office Visit [facility] [address] [place] [address] Padmini Cintron [address] [place] [address] documented as of this encounter Visit Diagnoses Not on filedocumented in this encounter Care Teams Registered Physical Therapist Relationship Specialty Start Date End Date Rebecca Goode OD [address] [place] [id number] PCP - General Optometry 07/14/18 06/07/23 documented as of this encounter
--- OUTSIDE RECORDS SUMMARY | 2024-09-09 12:13 | XMS_ITS | Encounter Summary ---
Author Organization [facility] Address [address] [facility] [address] [place] [address] Care Team Providers Care Discharge Specialist Name Role Phone Rebecca Goode OD Primary Care Provider [phone] Encounter Details Date Type Department Care Team (Latest Contact Info) Description 03/28/2022 Abstract [facility] CONVERSIONS Dental, Provider, DDS Social History Tobacco [...] Description 09/30/2024 10:00 AM EDT Office Visit [facility] [address] [place] [address] Abdulaziz, Padmini [address] [place] [address] documented as of this encounter Visit Diagnoses Not on filedocumented in this encounter Care Teams Discharge Specialist Relationship Specialty Start Date End Date Rebecca Goode OD [address] [place] [id number] PCP - General Optometry 07/14/18 06/07/23 documented as of this encounter
--- OUTSIDE RECORDS SUMMARY | 2024-09-09 12:13 | XMS_ITS | Encounter Summary ---
Author Organization [facility] Address [address] [facility] [address] [place] [address] Care Team Providers Care Java Front End Web Developer Name Role Phone Rebecca Goode OD Primary Care Provider [phone] Encounter Details Date Type Department Care Team (Latest Contact Info) Description 02/05/2021 Abstract [facility] CONVERSIONS Dental, Provider, DDS Social History Tobacco [...] Description 09/30/2024 10:00 AM EDT Office Visit [facility]ULT [facility] [address] [place] [address] Abdulaziz, Padmini [address] [place] [address] documented as of this encounter Visit Diagnoses Not on filedocumented in this encounter Care Teams Java Front End Web Developer Relationship Specialty Start Date End Date Rebecca Goode OD [address] [place] [id number] PCP - General Optometry 07/14/18 06/07/23 documented as of this encounter
--- OUTSIDE RECORDS SUMMARY | 2024-09-09 12:13 | XMS_ITS | Encounter Summary ---
Author Organization [employer] [facility] Address [address] [facility] [address] [place] [address] Care Team Providers Care Car Head Liner Installer Name Role Phone Rebecca Goode OD Primary Care Provider [phone] Encounter Details Date Type Department Care Team (Latest Contact Info) Description 04/12/2019 Abstract [facility] CONVERSIONS Dental, Provider, DDS Social History [...] 09/30/2024 10:00 AM EDT Office Visit [facility]ULT [facility] [address] [place] [address] Abdulaziz, Padmini [address] [place] [address] documented as of this encounter Visit Diagnoses Not on filedocumented in this encounter Care Teams Car Head Liner Installer Relationship Specialty Start Date End Date Rebecca Goode OD [address] [place] [phone] PCP - General Optometry 07/14/18 06/07/23 documented as of this encounter
== END 2024-09-09 12:52 | disposition home or self-care (01) ==
PROVIDERS: PCP Internal Medicine; Visit Provider Nurse Practitioner Family
DX: Z13.9 Encounter for screening, unspecified (principal); J06.9 Acute upper respiratory infection, unspecified

== ENCOUNTER 2024-09-09 11:14 | Outpatient (REF) | payer OTHER, SELFPAY ==
[2024-09-09 16:50] LABS: Influenza A PCR NEGATIVE (Negative); Influenza B PCR NEGATIVE (Negative); Resp Syncy Virus RNA Qual PCR NEGATIVE (Negative); SARS COV2 PCR INHOUSE NEGATIVE (Negative)
== END 2024-09-09 11:15 | disposition home or self-care (01) ==
LOC: HO.LNP 11:14
PROVIDERS: PCP Internal Medicine; Visit Provider Nurse Practitioner Family
DX: J06.9 Acute upper respiratory infection, unspecified (principal)
CPT/HCPCS: 0241U; 87880; 99212

== ENCOUNTER 2024-10-29 15:30 | Emergency (ER) | payer OTHER, SELFPAY ==
[2024-10-29 15:32] VITALS: BP 126/84; PULSE 87; RESP 16; TEMP 36.3; O2SAT 96; BMI 23.9
--- NOTE | 2024-10-29 15:32 | ED_ITS ---
HPI - General Adult General Chief complaint: Ear Problems Stated complaint: left ear pain Time Seen by Provider: 10/29/24 15:34 Source: patient Mode of arrival: ambulatory Limitations: no limitations History of Present Illness ED Provider: Anjali Moe PA-C HPI narrative: Patient is a 59 year old assigned female at with a history of MDD and migraines presenting to the emergency department today with left ear pain and nasal congestion. Patient states that over the last 4 days she has had left ear pain with nasal congestion. Patient denies any dizziness, lightheadedness, abdominal pain, nausea, vomiting, fever, chills, blurry vision, double vision, loss of vision, chest pain, difficulty breathing, shortness of breath, back pain, night sweats, pain with urination, increased urinary frequency, increased urinary urgency, blood in his urine or stool, syncope or a near syncopal episode, recent trauma or falls, bowel incontinence, bladder incontinence, or any other complaints at this time. Onset (ago): day(s) (4) Relieving factors: none Exacerbating factors: none Associated symptoms: denies other symptoms Treatments prior to arrival: none Related Data Home Medications ?Medication ?Instructions ?Recorded ?Confirmed hydroxyzine HCl 25 mg tablet 25 mg PO BID 03/21/21 06/21/24 propranolol 10 mg tablet 10 mg PO DAILY 03/21/21 06/21/24 venlafaxine 75 mg capsule,extended mg PO DAILY 06/21/24 06/21/24 release 24 hr Previous Rx's ?Medication ?Instructions ?Recorded acetaminophen 500 mg tablet 1,000 mg (2 x 500 mg) PO QID PRN 11/16/21 pain #30 tabs ibuprofen 800 mg tablet 800 mg PO Q8H PRN pain #30 tabs 11/16/21 duloxetine 30 mg capsule,delayed 30 mg PO DAILY 90 days #90 caps 06/15/23 release meclizine 25 mg tablet 25 mg PO TID PRN motion sickness 03/10/24 #30 tabs cyclobenzaprine 5 mg tablet 5 mg PO TID PRN muscle spasm #10 08/09/24 tabs lidocaine 5 % topical patch 1 patch topical DAILY #15 ea 08/09/24 azithromycin 250 mg tablet See Rx Instructions PO .COMPLEX #6 09/09/24 tabs atorvastatin 20 mg tablet 20 mg PO DAILY 90 days #90 tabs 10/06/24 amoxicillin 875 mg tablet 875 mg PO BID 5 days #10 tabs 10/29/24 Allergies Allergy/AdvReac Type Severity Reaction Status Date / Time Cortisone Allergy Intermediate redness, Uncoded 10/29/24 15:35 hives, rash, swelling Review of Systems Constitutional: Constitutional: Reports no additional constitutional complaint s, Denies chills, Denies fever(s) and Denies night sweats Eyes: Eyes: Reports no additional eye complaints, Denies blurry vision, Denies change in vision, Denies diplopia, Denies eye discharge, Denies loss of vision and Denies eye pain ENT: Denies dizziness and Reports nasal congestion Comments: left ear pain Cardiovascular: Cardiovascular: Reports no additional cardiovascular complaints, Denies chest pain, Denies lightheadedness, Denies Loss of Consciousness and Denies dyspnea Respiratory: Respiratory: Reports no additional respiratory complaints and Denies dyspnea Gastrointestinal: Gastrointestinal: Reports no additional gastrointestinal complaints, Denies abdominal pain, Denies melena, Denies hematochezia, Denies change in bowel habits and Denies change in stool character Genitourinary: Genitourinary: Denies hematuria, Denies urinary frequency, Denies dysuria, Denies urinary incontinence, Denies urinary hesitancy and Denies urinary urgency Musculoskeletal: Musculoskeletal: Reports no additional musculoskeletal complaints, Denies numbness and Denies tingling Neurologic: Denies dizziness, Denies loss of vision, Denies numbness and Denies tingling Psychiatric: Psychiatric: Reports no additional psychiatric complaints Endocrine: Endocrine: Reports no additional endocrine complaints Hematologic/Lymphatic: Hematologic/Lymphatic: Reports no additional hematologic/lymphatic complaints Allergic/Immunologic: Allergic/Immunologic: Reports no additional allergic/immunologic complaints [facility] Past Medical History Attestation statement: The following information was validated with the patient. Source: old records reviewed and nursing notes reviewed Medical History Back pain Incisional pain Mild recurrent major depression Right shoulder pain Plantar fasciitis Anxiety Depression Migraines Vertigo Surgical History History of appendectomy Hx of tubal ligation S/P hernia surgery Family History Family History Mother Mental health disorder Dementia Maternal Aunt Mental health disorder Breast cancer Ovarian cancer Maternal Grandmother Mental health disorder Father Substance use disorder Asthma Maternal Aunt Uterine cancer Social History Social History Housing: Apartment Alcohol intake: never Patient Tobacco Use Status: Former Tobacco user Tobacco use type: Cigarette Smoked in Last 30 Days: No e-Cigarette/Vaping Use: Never Used Second Hand Smoke Exposure: No Use of substances other than those prescribed or required for medical reasons: No Advance Directives: No Advance Directives Information Provided: No Patient : No service: No Current occupational status: unemployed 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 Cognitive needs: No Hearing needs: No Vision needs: No Physical Exam ED Vital Signs: Vital Signs - 24 hr 10/29/24 15:32 10/29/24 16:45 Temperature 97.4 F 97.4 F Pulse Rate 87 87 Respiratory Rate 16 16 Blood Pressure 126/84 126/84 Pulse Oximetry 96 96 Oxygen Delivery Method Room Air Room Air BMI result Body Mass Index 23.9 Const General: cooperative, no acute distress, alert and awake Nutritional Appearance: well nourished Orientation/consciousness: patient oriented x3 HENMT Head: Yes normal to inspection and Yes atraumatic Ears: hearing grossly normal bilaterally, external ears normal and TM abnormal erythematous on the left General nose exam: Normal external nose present, no nasal discharge noted and no epistaxis Face and sinus: Yes normal facial exam, No abrasion and No laceration Mouth: Normal oral and palatal mucosa present, no drooling and no muffled voice Eyes General: appearance normal, both eyes and all related structures Periorbital: periorbital findings normal Eyelids: Yes eyelids normal Conjunctivae: conjunctivae normal Pupils: Equal, round and reactive pupils present EOM: EOMs intact bilaterally Neck Neck: Yes normal visual inspection, Yes full ROM and Yes no lymphadenopathy Resp Effort & Inspection: normal respiratory effort and able to speak in complete sentences Neuro General: patient oriented x3, moves all extremities and CN's II-XI intact bilaterally Cranial nerves: Yes Equal, round and reactive pupils present Cognition (Neuro): normal cognition Extrem General: Yes normal to inspection, Yes full ROM and Yes capillary refill normal Psych Appearance: grossly normal Mental Status: mental status grossly normal Affect: normal affect Attitude: cooperative Thought process: Normal thought process present Thought content: Normal thought content present Insight: Good insight present (Psych) Course Course Course Narrative: RME performed by Anjali Moe PA-C. Patient is a 59 year old assigned female at presenting to the emergency department with left ear pain, fever, and chills. Detailed physical exam and review of systems are deferred to the industrial production manager. Swabs ordered. Patient placed back in the waiting room pending room availability and results. Medical Decision Making Medical Decision Making [facility] Narrative: Patient is a 59 year old assigned female at with a history of MDD and migraines presenting to the emergency department today with left ear pain and nasal congestion. Patient's physical exam was as noted and consistent with left otitis media. Patient's COVID-19, influenza, RSV, and strep testing were negative. I explained my physical exam findings as well as all test results to the patient. I answered all questions asked by the patient. I stressed the importance of the patient taking her medication as directed (either prescribed or as the over the counter packaging recommends). I stressed the importance of the patient following up with her primary care provider. I stressed the importance of the patient returning to the emergency department immediately if her symptoms were to worsen or if she were to develop any dizziness, shortness of breath, difficulty breathing, chest pain, blurry vision, loss of vision, nausea, vomiting, abdominal pain, fever, chills, back pain, or any other complaints. Patient verbalized agreement and understanding with this treatment plan and discharge. Differential Diagnosis Differential Diagnoses: The differential diagnosis associated with the prese ntation includes Otitis media COVID-19 Influenza RSV Strep pharyngitis Sinusitis Admission/Observation Consideration of admission/observation: Escalation of care including admission/observation considered Patient would have been admitted to the hospital had her work up had any findings where hospital admission was appropriate and her clinical presentation warranted hospital admission. Lab Data [facility] Lab Attestation statement: I reviewed the patient's lab results. My interpretation of these results are in the [facility] Rationale portion of this note. Labs: Lab Results 10/29/24 10/29/24 Range/Units 15:44 15:45 Influenza Type A (PCR) NEGATIVE (Negative) Influenza Type B (PCR) NEGATIVE (Negative) RSV RNA Qual (PCR) NEGATIVE (Negative) SARS-CoV-2 RNA (RT-PCR) NEGATIVE (Negative) S. pyogenes GrpA MARGARITA Negative (Negative) Prescription Management I considered prescription management with: Antibiotic (Patient prescribed an antibiotic for otitis media) Discharge Plan Discharge Clinical Impression: Otitis media Patient Disposition: Home, Self-Care Instructions: Ear Infection (ED) Additional Instructions: Follow up with your primary care provider. Return to the emergency department im mediately if your symptoms worsen or if you develop any numbness, tingling, dizziness, shortness of breath, difficulty breathing, chest pain, blurry vision, loss of vision, nausea, vomiting, abdominal pain, fever, chills, back pain, or any other complaints. Please see the information below about our Patient Portal. If you are not yet enrolled in the [facility] Patient Portal, you will receive an enrollment email invitation following your visit to any [facility] care setting. You may also self-enroll in the Patient Portal by visiting our website: [email or web address] The following information is required to access the Patient Portal: - Your [facility] Medical Record Number - Your personal home email address (must match what is in your electronic medical record, Registration staff can assist with this) - Name - Date of Capabilities of the Patient Portal: - Message some providers - View upcoming appointments - Access your health summary, medical history, and visit history - View current conditions and allergies - View procedure and lab results - View your medications, including guidelines, side effects, and precautions - Complete pre-appointment questionnaires requested by your provider - Ready summary reports of your office visits and procedures To access the Patient Portal Mobile [employer], follow these directions: - Search [employer] in the [employer] Store or [employer] Store - Download the [employer] - Search for [facility] - Enter your login/password Prescriptions: New amoxicillin 875 mg tablet 875 mg PO BID 5 Days Qty: 10 0RF No Action meclizine 25 mg tablet 25 mg PO TID PRN (Reason: motion sickness) Qty: 30 0RF atorvastatin 20 mg tablet 20 mg PO DAILY 90 Days Qty: 90 1RF acetaminophen 500 mg tablet 1,000 mg PO QID PRN (Reason: pain) Qty: 30 0RF ibuprofen 800 mg tablet 800 mg PO Q8H PRN (Reason: pain) Qty: 30 0RF lidocaine 5 % adhesive patch,medicated 1 patch topical DAILY Qty: 15 0RF Rx Instructions: leave on most painful area for up to 12 hrs cyclobenzaprine 5 mg tablet 5 mg PO TID PRN (Reason: muscle spasm) Qty: 10 0RF propranolol 10 mg tablet 10 mg PO DAILY hydroxyzine HCl 25 mg tablet 25 mg PO BID duloxetine 30 mg capsule,delayed release(DR/EC) 30 mg PO DAILY 90 Days Qty: 90 0RF venlafaxine 75 mg capsule,extended release 24hr PO DAILY azithromycin 250 mg tablet See Rx Instructions PO .COMPLEX Qty: 6 0RF Rx Instructions: For 250 mg dose pack: take 500 mg today (day 1), then 250 mg for 4 days (days 2-5) PO Do not take Hydroxyzine while taking this medication. Referrals: Velia Nye MD [Primary Care Provider] - Interventions: ED Discharge Assessment Last Done: 10/29/24 16:45 Discharge Date/Time: 10/29/24 16:46 Print Language: Croatian
--- OUTSIDE RECORDS SUMMARY | 2024-10-29 15:49 | XMS_ITS | Encounter Summary ---
Author Organization [facility] Address [address] [place] [address] Care Team Providers Care Cane Feeder Name Role Phone Rebecca Goode OD Primary Care Provider [phone] Encounter Details Date Type Department Care Team (Latest Contact Info) Description 03/28/2022 Abstract C CONVERSIONS Dental, Provider, DDS Social History Tobacco Use Types Packs/Day Years Used Date Smoking Tobacco: Never Assessed Comments Unknown Sex and Gender Information Value Date Recorded Sex Assigned at Female 03/31/2022 10:14 AM EDT Legal Sex Female 10:14 AM EDT Gender Identity Female 03/31/2022 10:14 AM EDT Sexual Orientation Straight 03/31/2022 10 :14 AM EDT documented as of this encounter Plan of Treatment Not on file documented as of this encounter Visit Diagnoses Not on filedocumented in this encounter Care Teams Cane Feeder Relationship Specialty Start Date End Date Rebecca Goode OD [address] [place] [id number] PCP - General Optometry 07/14/18 06/07/23 documented as of this encounter
[2024-10-29 16:10] LABS: IDNOW Serial# 55D5AD1C; Strep A Nucleic Acid Negative (Negative)
[2024-10-29 16:37] LABS: Influenza A PCR NEGATIVE (Negative); Influenza B PCR NEGATIVE (Negative); Resp Syncy Virus RNA Qual PCR NEGATIVE (Negative); SARS COV2 PCR INHOUSE NEGATIVE (Negative)
[2024-10-29 16:45] VITALS: BP 126/84; PULSE 87; RESP 16; TEMP 36.3; O2SAT 96
== END 2024-10-29 16:46 | disposition home or self-care (01) ==
PROVIDERS: Physician Assistant Medical; Emergency Provider Emergency Medicine; PCP Internal Medicine
DX: H66.92 Otitis media, unspecified, left ear (principal); H92.02 Otalgia, left ear; Z03.818 Encounter for observation for suspected exposure to other biological agents ruled out
CPT/HCPCS: 0241U; 87651; 99283; 99284

== ENCOUNTER 2024-11-11 10:13 | Outpatient (AMB) | payer OTHER, SELFPAY ==
--- NOTE | 2024-11-11 10:24 | MHC.PC.OV ---
Vital Signs 11/11/24 10:25 Height 5 ft 3 in Weight 133 lb 4 oz BMI 23.6 BP 118/76 Blood Pressure Location Lt brachial Position Sitting Pulse 71 Pulse Source Pulse Oximeter Temp 97.3 F Temp Source Temporal Artery Scan Pulse Oximetry (%) 97 Oxygen Delivery Method Room Air Intake Visit Reasons: [facility] [place] ear infection Assistant Department Manager Required: No Accompanied by: Self / Same As Patient Allergies Cortisone Allergy (Intermediate, Uncoded 11/11/24 10:29) redness, hives, rash, swelling Medication List - Last Reconciled 11/11/24 by Dee Javier NP acetaminophen 1,000 mg (2 x 500 mg) PO QID PRN atorvastatin 20 mg PO DAILY 90 days cetirizine (Zyrtec) 10 mg PO DAILY lidocaine 5% 1 patch topical DAILY venlafaxine ER mg PO DAILY Tobacco use date assessed: 06/21/24 Dental Screening Dental Screen Date: 06/21/24 HPI HPI Comments History of Present Illness Details 59 y/o Female patient who presents to the clinic today for EDF. She was admitted at [facility] [place] for an evaluation and treatment of Left Otitis media. She was prescribed Abx. Today reports some mild pain left ear and a feeling of fullness and pressure. She does have Nasal congestion. [facility] Medical History (Updated 11/11/24 @ 11:21 by Dee Javier NP) Fluid level behind tympanic membrane of both ears Back pain Incisional pain Mild recurrent major depression Right shoulder pain Plantar fasciitis Anxiety Depression Migraines Vertigo Surgical History History of appendectomy Hx of tubal ligation S/P hernia surgery Family History Mother Mental health disorder Dementia Maternal Aunt Mental health disorder Breast cancer Ovarian cancer Maternal Grandmother Mental health disorder Father Substance use disorder Asthma Maternal Aunt Uterine cancer Social History Housing: Apartment Alcohol intake: never Patient Tobacco Use Status: Former Tobacco user Tobacco use type: Cigarette e-Cigarette/Vaping Use: Never Used Second Hand Smoke Exposure: No service: No Current occupational status: unemployed 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 Cognitive needs: No Hearing needs: No Vision needs: No Female Reproductive History Menstrual Age of Menarche: 15 Questionnaire Thrive Questionnaire Date Thrive assessed: 06/21/24 I am a: Patient What is your living situation today?: I have a steady place to live Within the past 12 months, did the food you bought not last and you didn't have the money to get more?: Never true Within the past 12 months, did you worry whether your food would run out before you got money to buy more?: Never true Do you have trouble paying for medicines?: No Do you have trouble getting transportation to medical appointments?: Yes Do you have trouble paying your heating and electricity bill?: No Do you have trouble taking care of your child, family member or friend?: No Do you have trouble with day-to-day activities such as bathing, preparing meals, shopping, managing finances, etc.?: Yes Are you currently unemployed and looking for a job?: Yes Are you interested in more education?: Yes Currently or been in a relationship where the following occur: No concerns reported THRIVE Score: 1 PAULINE-7 AMB Questionnaire PAULINE-7 Date PAULINE - 7 assessed: 06/21/24 Source: Developed by Drs. Ghulam Chen, Enid Mosley, Helio Casas and colleagues, with an educational morenita from [employer]. Review of Systems Const All systems reviewed & are unremarkable except as noted in HPI and below Physical exam (Primary Care) Vital Signs: Last Vital Signs Temp 97.3 F 11/11/24 10:25 Pulse 71 11/11/24 10:25 BP 118/76 11/11/24 10:25 Pulse Ox 97 11/11/24 10:25 Oxygen Delivery Method Room Air 11/11/24 10:25 BMI result Body Mass Index 23.6 Tobacco/Smoking Status: Tobacco use Status Tobacco use date assessed 06/21/24 11/11/24 10:26 Patient Tobacco Use Status Former Tobacco user 11/11/24 10:26 Tobacco use type Cigarette 11/11/24 10:26 e-Cigarette/Vaping Use Never Used 11/11/24 10:26 Thrive Assessment: Date of Thrive Assessment Date Thrive assessed 06/21/24 11/11/24 10:26 Currently or been in a relationship where the following occur: No concerns reported Const General: no acute distress Orientation/consciousness: patient oriented x3 HENMT Head: Yes normocephalic Ears: external ears normal and TM abnormal bulging and with fluid behind the TM bilateral General nose exam: Normal external nose present Mouth: moist mucous membranes Resp Effort & Inspection: normal respiratory effort Auscultation: clear to auscultation bilaterally Cardio Heart sounds: S1 normal heart sound present and S2 normal heart sound present Neuro General: patient oriented x3 Coding Level of Care Code Est Pt Level 4 (30307) Diagnoses Fluid level behind tympanic membrane of both ears H65.93 Time Spent (min) 20 Assessment & Plan Assessment & Plan (1) Fluid level behind tympanic membrane of both ears: Code(s): H65.93 - Unspecified nonsuppurative otitis media, bilateral Category: Medical Plan: Infection cleared - TM with fluid. TM intact with slight bulging due to fluid. Ordered Decongestants such as Zrytec BID. Medications: New cetirizine (Zyrtec) 10 mg PO DAILY 30 tabs 0RF H65.93 - Unspecified nonsuppurative otitis media, bilateral Discontinued ibuprofen Discontinued Reason: Patient Completed Course 800 mg PO Q8H PRN 30 tabs 0RF pain cyclobenzaprine Discontinued Reason: Patient Completed Course 5 mg PO TID PRN 10 tabs 0RF muscle spasm duloxetine Discontinued Reason: Patient Completed Course 30 mg PO DAILY 90 days 90 caps 0RF meclizine Discontinued Reason: Patient Completed Course 25 mg PO TID PRN 30 tabs 0RF motion sickness
[2024-11-11 10:25] VITALS: BP 118/76; PULSE 71; TEMP 36.3; O2SAT 97; BMI 23.6
== END 2024-11-11 11:06 | disposition home or self-care (01) ==
LOC: HO.HMCH 10:13
PROVIDERS: PCP Internal Medicine; Visit Provider Nurse Practitioner Family
DX: H65.93 Unspecified nonsuppurative otitis media, bilateral (principal)

== ENCOUNTER → 2024-11-11 10:13 | Outpatient (BNVA) | payer OTHER, SELFPAY | PROVIDERS: PCP Internal Medicine; Visit Provider Nurse Practitioner Family | DX: R42 Dizziness and giddiness (principal); H65.93 Unspecified nonsuppurative otitis media, bilateral | CPT/HCPCS: 99212 ==

== ENCOUNTER 2025-01-04 14:24 | Emergency (ER) | payer OTHER, SELFPAY ==
--- NOTE | ~2025-01-04 | CT_ITS ---
EXAMINATION: CT HEAD WITHOUT CONTRAST CLINICAL INFORMATION: Dizziness, headache COMPARISON: CT brain 12/10/2020 TECHNIQUE: Contiguous axial imaging was performed from the skull base to vertex without intravenous administration of contrast. This CT examination was performed using dose optimization techniques as appropriate, variously including the following: *Automated exposure control *Adjustment of mA and/or kV according to patient size (this includes techniques or standardized protocols for targeted exams where dose is matched to indication/reason for exam; i.e. extremities or head) *Use of iterative reconstruction technique DLP: 642. FINDINGS: There is no acute intra-axial, extra-axial bleed, masses or midline shift. There is no acute infarction in evolution. There is no edema. The christianson to white matter differentiation is maintained normal. The lateral ventricles are symmetrical in size and configuration without enlargement. Bone windows reveal no calvarial abnormality. There is no scalp soft tissue abnormality. Bilateral paranasal sinuses and mastoid air cells are well-aerated. CT/CT head/brain wo IV con IMPRESSION: No acute intracranial process seen Electronically signed by: Deonte Melara MD 01/04/2025 05:04 PM EDT
[2025-01-04 14:42] VITALS: BP 168/84; PULSE 72; RESP 18; TEMP 36.6; O2SAT 98; BMI 23.3
--- NOTE | 2025-01-04 14:46 | ED.DIZZY ---
HPI - Dizziness General Chief Complaint: Dizziness Stated Complaint: Vertigo, left face pain, headache, nausous Time Seen by Provider: 01/04/25 20:39 Source: patient Mode of arrival: ambulatory Limitations: no limitations History of Present Illness ED Provider: Angel DICKERSON HPI Narrative: The patient is a 59-year-old female presenting to the ED reporting a history of vertigo for which she takes meclizine. The patient reports she has been experiencing intermittent dizziness for the past week, reports she was recently evaluated for left ear pain with associated head pressure and was told she had an inner ear infection, however patient was then seen by her dentist and advised she had a dental infection which required root canal, patient underwent root canal earlier this week. Patient reports after the root canal and subsequent antibiotics and continued meclizine, her head pressure and dizziness began to improve, however over the past 2 days symptoms have reoccurred and she presents to the ED for evaluation. The patient describes dizziness as room spinning sensation worse with head movement, reports associated nausea without associated vomiting. Patient reports associated tinnitus, denies recent fall or other blunt head trauma. The patient reports she is supposed to take meclizine 3 times a day when symptoms are active, last took meclizine once this morning. The patient denies associated focal neurological deficit, chest pain, shortness of breath, abdominal pain, fever/chills, or recent sick contacts. Related Data Home Medications ?Medication ?Instructions ?Recorded ?Confirmed venlafaxine 75 mg capsule,extended mg PO DAILY 06/21/24 11/11/24 release 24 hr Previous Rx's ?Medication ?Instructions ?Recorded acetaminophen 500 mg tablet 1,000 mg (2 x 500 mg) PO QID PRN 11/16/21 pain #30 tabs lidocaine 5 % topical patch 1 patch topical DAILY #15 ea 08/09/24 atorvastatin 20 mg tablet 20 mg PO DAILY 90 days #90 tabs 10/06/24 cetirizine 10 mg tablet (Zyrtec) 10 mg PO DAILY #30 tabs 12/09/24 Allergies Allergy/AdvReac Type Severity Reaction Status Date / Time Cortisone Allergy Intermediate redness, Uncoded 01/04/25 14:47 hives, rash, swelling Review of Systems Review of Systems: Yes all other systems are reviewed and are negative PMFSH Past Medical History Medical History (Updated 01/05/25 @ 00:30 by Angel Jin PA-C) Fluid level behind tympanic membrane of both ears Back pain Incisional pain Mild recurrent major depression Right shoulder pain Plantar fasciitis Anxiety Depression Migraines Vertigo Surgical History History of appendectomy Hx of tubal ligation S/P hernia surgery Family History Family History Mother Mental health disorder Dementia Maternal Aunt Mental health disorder Breast cancer Ovarian cancer Maternal Grandmother Mental health disorder Father Substance use disorder Asthma Maternal Aunt Uterine cancer Social History Social History Housing: Apartment Alcohol intake: never Patient Tobacco Use Status: Former Tobacco user Tobacco use type: Cigarette Smoked in Last 30 Days: No e-Cigarette/Vaping Use: Never Used Second Hand Smoke Exposure: No Use of substances other than those prescribed or required for medical reasons: No Advance Directives: No Advance Directives Information Provided: Yes Do you have a plan to hurt others: No Plan service: No Current occupational status: unemployed 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 Vital signs as documented. HEAD: Atraumatic, normocephalic. EYES: EOMs grossly intact, pupils equal, conjunctiva clear, no exudate. ENT: Nares patent, no discharge. Airway patent, no audible stridor, visible mucosa is pink and moist without noted lesions. Bilateral ear canals are clear and TMs are unremarkable, no erythema, bulging, fluid levels, or perforation. NECK: Trachea is midline, no obvious masses or gross abnormalities. CHEST: Symmetric movement, normal appearance. LUNGS: LS present and CTAB, no w/r/r. Non-labored work of breathing. CARDIAC: Regular Rhythm, S1/S2 appreciated, no murmurs, rubs or gallops. ABDOMEN: Abdomen soft and non-tender x4 quadrants, no palpable masses or organomegaly. : Deferred. EXTREMITIES: Normal tone, moves all extremities spontaneously without reported pain. No obvious acute injury or deformity noted. NEURO: Alert and oriented x3, CN II-XII appear grossly intact. Cerebellar Functioning grossly intact. No obvious sensory or motor deficits. Speech clear and appropriate. PSYCH: normal affect, appropriate eye contact, fluid speech, with appropriate response to questioning. No reported suicidality or homicidality. SKIN: Warm, dry, color appropriate, normal turgor. No rashes noted. Vital Signs: Vital Signs: Last Vital Signs Temp 98.0 F 01/04/25 20:39 Pulse 65 01/04/25 20:39 Resp 16 01/04/25 20:39 BP 146/77 H 01/04/25 20:39 Pulse Ox 98 01/04/25 20:39 O2 Del Method Room Air 01/04/25 20:39 BMI result Body Mass Index 23.3 Course Course Course Narrative: This is a Rapid Medical Examination (RME) performed by Opal Leung PA-C in triage. Full HPI, ROS, assessment and treatment plan per primary provider in the Main ED. Hx: 59 yo F here for eval of dizziness (room spinning senation), headache, nausea w/o vomiting, L ear ache . hx hx vertigo - states this feels different. taking meclizine w/o improvement. denies difficulty ambulating. PE/vitals: Cerebellum intact, noted fatigable nystagmus Plan: labs, ekg, cr head Medications Administered Discontinued Medications Generic Name Dose Route Start Last Admin Trade Name Freq PRN Reason Stop Dose Admin Meclizine HCl 50 mg 01/04/25 22:15 01/04/25 23:14 Meclizine Hcl 25 Mg Tablet PO 01/04/25 22:16 50 mg ONCE ONE Administration Medical Decision Making Medical Decision Making [facility] Narrative: 10:54 PM 01/04/2025 (Opal DICKERSON): Patient is a 59-year-old female with history of vertigo, migraines, depression, anxiety, hyperlipidemia, and vertigo which is treated with meclizine, presenting to the ED for evaluation of left-sided headache with associated dizziness, nausea without vomiting, and recent diagnosis of otitis media. Patient's symptoms had begun improving after undergoing a root canal but then have returned over the last 2 days prompting ED evaluation. In the ED patient is markedly well-appearing, using her phone without difficulty at initiation of exam/interview. The patient's laboratory evaluation is markedly reassuring, there is no leukocytosis, anemia, electrolyte abnormality, ABDI, or significant LFT abnormality. The patient's CT head shows no evidence of acute intracranial pathology. The patient's EKG is nonischemic. The patient's workup is reassuring, presentation is consistent with likely viral labyrinthitis. Patient has not taken her meclizine since earlier this morning, we will treat with a additional meclizine and reassess for improvement in symptoms, pending improvement patient will be appropriate for discharge home to follow up with PCP, patient has been educated on the expected duration of her symptoms. 12:28 AM 01/05/2025 (Opal DICKERSON): Patient reports symptoms have improved dramatically following meclizine administration. Patient will be discharged to follow up with PCP. Admission/Observation Consideration of admission/observation: Escalation of care including admission/observation considered Lab Data MDM Lab Attestation statement: I reviewed the patient's lab results. 01/04/25 15:27 01/04/25 15:27 Labs: Lab Results 01/04/25 Range/Units 15:27 WBC 7.1 (4.8-10.8) X10*3/uL RBC 4.47 (4.20-5.50) X10*6/uL Hgb 13.5 (12.0-16.0) g/dl Hct 39.4 (37.0-47.0) % MCV 88.1 (80.0-98.0) fL MCH 30.2 (27.0-33.0) pg MCHC 34.3 (31.0-35.0) g/dl RDW 13.2 (11.0-16.0) % Plt Count 259 (160-400) X10*3/uL MPV 9.1 L (9.4-12.3) fL Immature Gran % (Auto) 0.1 (0.0-0.4) % Neut % (Auto) 53.6 (45-73) % Lymph % (Auto) 37.8 (20-40) % [place] % (Auto) 5.6 (2-11) % Eos % (Auto) 2.3 (0-4) % Baso % (Auto) 0.6 (0-2) % Lymph # (Auto) 2.7 (1.2-4.9) X10*3/uL [place] # (Auto) 0.4 (0.1-1.2) X10*3/uL Eos # (Auto) 0.2 (0.0-0.4) X10*3/uL Baso # (Auto) 0.0 (0.0-0.2) X10*3/uL Abs Immat Gran (auto) 0.01 (0.00-0.03) X10*3/uL Absolute Neuts (auto) 3.8 (2.0-8.3) x10*3/uL Absolute Nucleated RBC 0.000 (0.0-0.012) X10*3/uL Nucleated RBC % (auto) 0.0 (0.0-0.2) /100WBC Sodium 143 (135-145) mmol/L Potassium 3.7 (3.3-5.1) mmol/L Chloride 106 (96-108) mmol/L Carbon Dioxide 28 (22-29) mmol/L Anion Gap 13 (12-20) BUN 10 (9-16) mg/dL Creatinine 0.75 (0.5-1.4) mg/dL Estim Creat Clear Calc 69.7 Estimated GFR > 60 Random Glucose 94 (60-115) mg/dL Calcium 9.6 (8.4-10.2) mg/dL Magnesium 2.2 (1.6-2.6) mg/dL Total Bilirubin 0.2 (0.0-1.0) mg/dL AST 32 H (5-31) U/L ALT 25 (0-31) U/L Alkaline Phosphatase 76 (39-117) U/L Total Protein 7.6 (6.5-8.0) g/dL Albumin 4.6 (3.5-5.0) g/dL Independent Interpretation I performed an independent interpretation of an: EKG (EKG shows sinus rhythm with a rate of 66, no evidence of acute ischemia, no ST elevation, no ectopy. QTC 431. Compared to previous on 06/18/2022 there are no acute morphology changes. ) Radiology Impression Discussion of test interpretation with radiology: I have reviewed the radiologist's reading. Radiologist Impression: CT HEAD WITHOUT CONTRAST CLINICAL INFORMATION: Dizziness, headache COMPARISON: CT brain 12/10/2020 TECHNIQUE: Contiguous axial imaging was performed from the skull base to vertex without intravenous administration of contrast. This CT examination was performed using dose optimization techniques as appropriate, variously including the following: *Automated exposure control *Adjustment of mA and/or kV according to patient size (this includes techniques or standardized protocols for targeted exams where dose is matched to indication/reason for exam; i.e. extremities or head) *Use of iterative reconstruction technique DLP: 642. FINDINGS: There is no acute intra-axial, extra-axial bleed, masses or midline shift. There is no acute infarction in evolution. There is no edema. The christianson to white matter differentiation is maintained normal. The lateral ventricles are symmetrical in size and configuration without enlargement. Bone windows reveal no calvarial abnormality. There is no scalp soft tissue abnormality. Bilateral paranasal sinuses and mastoid air cells are well-aerated. CT/CT head/brain wo IV con IMPRESSION: No acute intracranial process seen Electronically signed by: Deonte Melara MD 01/04/2025 05:04 PM EDT RP External Record Review External record reviewed: Outpatient record Prescription Management I considered prescription management with: Pain Medication and Antibiotic Discharge Plan Discharge Clinical Impression: Acute vestibular neuronitis Patient Disposition: Home, Self-Care Instructions: Vertigo (ED), Labyrinthitis (ED) Additional Instructions: Thank you for choosing [facility]'s Emergency Department for your care today. Thankfully your laboratory evaluation, CT head, and exam today are all reassuring. There was no evidence of any acute stroke or other dangerous neurologic cause for your dizziness. At this time there is no indication for admission to the hospital or continued ED observation, and it is safe to discharge you home. Based on your presentation of symptoms you are likely suffering from inflammation of the inner ear, a condition known as labyrinthitis or also known as acute vestibular neuritis. This viral inflammation of your inner ear should improve without intervention in approximately 1-2 weeks from onset. Please take meclizine as prescribed as needed for additional dizziness. Please follow up with your primary care physician for re-evaluation, additional management of your symptoms, and continued preventative care. If you do not have a primary care physician, please call the [facility] at [phone] to establish a new primary care physician. While waiting to establish your new primary care physician, you can call our Walk[facility]in [facility] at [phone] for non-emergency needs. Please return to the emergency department if you develop a severe or sudden change in your symptoms, a fever over 100.4 that does not improve with Tylenol or Ibuprofen, recurrent vomiting, or any other new or worsening symptoms or concerns. Prescriptions: No Action atorvastatin 20 mg tablet 20 mg PO DAILY 90 Days Qty: 90 1RF cetirizine [Zyrtec] 10 mg tablet 10 mg PO DAILY Qty: 30 0RF acetaminophen 500 mg tablet 1,000 mg PO QID PRN (Reason: pain) Qty: 30 0RF lidocaine 5 % adhesive patch,medicated 1 patch topical DAILY Qty: 15 0RF Rx Instructions: leave on most painful area for up to 12 hrs venlafaxine 75 mg capsule,extended release 24hr PO DAILY Referrals: Velia Nye MD [Primary Care Provider, Internal Medicine] Clinical Impression: Acute vestibular neuronitis Print Language: Armenian
--- NOTE | 2025-01-04 14:47 | ECG_ITS ---
Test Reason : DIZZINESS Blood Pressure : */* mmHG Vent. Rate : 66 BPM Atrial Rate : 66 BPM P-R Int : 136 ms QRS Dur : 70 ms QT Int : 412 ms P-R-T Axes : 48 5 24 degrees QTcB Int : 431 ms Normal sinus rhythm Normal ECG When compared with ECG of 18-Jun-2022 09:54, No significant change was found Referred By: Jaz Leung Electronically Signed By: ZINA MCKEON
[2025-01-04 15:32] LABS: MANUAL DIFF FLAG NO
[2025-01-04 15:33] LABS: Hematocrit 39.4 % (37.0-47.0); Hemoglobin 13.5 g/dl (12.0-16.0); Imm Gran Abs Auto 0.01 X10*3/uL (0.00-0.03); Imm Gran Pct Auto 0.1 % (0.0-0.4); Lymphocytes Absolute Auto 2.7 X10*3/uL (1.2-4.9); Mean Corpuscular HGB Conc 34.3 g/dl (31.0-35.0); Mean Corpuscular Hemoglobin 30.2 pg (27.0-33.0); Mean Corpuscular Volume 88.1 fL (80.0-98.0); NRBC Abs Auto 0.000 X10*3/uL (0.0-0.012); NRBC Pct Auto 0.0 /100WBC (0.0-0.2); Platelet Count 259 X10*3/uL (160-400); Red Blood Count 4.47 X10*6/uL (4.20-5.50); White Blood Count 7.1 X10*3/uL (4.8-10.8)
[2025-01-04 15:46] LABS: Alanine Aminotransferase 25 U/L (0-31); Albumin Level 4.6 g/dL (3.5-5.0); Alkaline Phosphatase 76 U/L (39-117); Anion Gap 13 (12-20); Aspartate Amino Transferase 32 U/L (5-31); Blood Urea Nitrogen 10 mg/dL (9-16); Calcium 9.6 mg/dL (8.4-10.2); Carbon Dioxide 28 mmol/L (22-29); Chloride 106 mmol/L (96-108); Creatinine Clr Calc Pharmacy 69.7; Estimated Glomerular Filt Rate > 60; Magnesium 2.2 mg/dL (1.6-2.6); Potassium 3.7 mmol/L (3.3-5.1); Sodium 143 mmol/L (135-145); Total Protein 7.6 g/dL (6.5-8.0)
[2025-01-04 20:39] VITALS: BP 146/77; PULSE 65; RESP 16; TEMP 36.7; O2SAT 98
[2025-01-05 00:37] VITALS: BP 146/77; PULSE 65; RESP 16; TEMP 36.7; O2SAT 98
== END 2025-01-05 00:38 | disposition home or self-care (01) ==
PROVIDERS: Physician Assistant Medical; Emergency Provider Emergency Medicine; PCP Internal Medicine
DX: H81.22 Vestibular neuronitis, left ear (principal); H92.02 Otalgia, left ear; Z79.899 Other long term (current) drug therapy; Z87.891 Personal history of nicotine dependence
CPT/HCPCS: 36415; 70450; 80053; 83735; 85025; 93005; 99284

== ENCOUNTER → 2025-01-04 14:46 | Outpatient (BNV) | payer OTHER, SELFPAY | PROVIDERS: PCP Student in an Organized Health Care Education/Training Program; Visit Provider Radiology Diagnostic Radiology | DX: R51.9 Headache, unspecified (principal); R42 Dizziness and giddiness | CPT/HCPCS: 70450 ==

== ENCOUNTER → 2025-01-04 14:47 | Outpatient (BNV) | payer OTHER, SELFPAY | PROVIDERS: Emergency Provider Emergency Medicine; PCP Internal Medicine; Visit Provider Internal Medicine | DX: R42 Dizziness and giddiness (principal) | CPT/HCPCS: 93010 ==

== ENCOUNTER 2025-05-22 09:39 | Outpatient (REF) | payer OTHER, SELFPAY ==
[2025-05-22 14:38] LABS: Resp Syncy Virus RNA Qual PCR NEGATIVE (Negative); SARS COV2 PCR INHOUSE NEGATIVE (Negative)
== END 2025-05-22 09:40 | disposition home or self-care (01) ==
LOC: HO.LAB 09:39
PROVIDERS: Nurse Practitioner Family; PCP Internal Medicine
DX: J06.9 Acute upper respiratory infection, unspecified (principal)
CPT/HCPCS: 87637; 99212

== ENCOUNTER 2025-05-22 09:39 | Outpatient (AMB) | payer OTHER, SELFPAY ==
--- NOTE | 2025-05-22 10:00 | AM.OFFWIN_ITS ---
Intake Vital Signs 05/22/25 10:01 Height 5 ft 4 in Weight 140 lb BMI 24.0 BP 120/78 Blood Pressure Location Lt brachial Position Sitting Pulse 67 Pulse Source Pulse Oximeter Temp 98.4 F Temp Source Oral Pulse Oximetry (%) 98 Oxygen Delivery Method Room Air Intake Visit Reasons: EP Left ear pain, fever, body aches Intake Note: sinus congestion, LT ear pain, fevers, body aches, headaches for about 6 days Patient Tobacco Use Status: Former Tobacco user Allergies Cortisone Allergy (Intermediate, Uncoded 05/22/25 10:11) redness, hives, rash, swelling Medication List - Last Reconciled 05/22/25 by Dee Javier NP acetaminophen 1,000 mg (2 x 500 mg) PO Q6H atorvastatin 20 mg PO DAILY 90 days cetirizine (Zyrtec) 10 mg PO DAILY lidocaine 5% 1 patch topical DAILY oxymetazoline 0.05% (Afrin (oxymetazoline)) 2 sprays intranasal Q12H 3 days pseudoephedrine HCl ER (Sudafed 12 Hour) 120 mg PO Q12H venlafaxine ER mg PO DAILY Do you need a note to return to daycare/school/sports/work: No HPI HPI Comments History of Present Illness Details 59-year-old female presents to the walk- in clinic with complaints of upper respiratory symptoms for the past 6 days. Reports sinus congestion, left ear pain, subjective fevers, generalized body aches, and headaches. She has not taken any xofr-[id number] medications for symptom relief. Denies recent sick contacts. Denies nausea or vomiting. [facility] Medical History (Updated 05/22/25 @ 10:47 by Dee Javier NP) Acute respiratory disease Fluid level behind tympanic membrane of both ears Back pain Incisional pain Mild recurrent major depression Right shoulder pain Plantar fasciitis Anxiety Depression Migraines Vertigo Surgical History History of appendectomy Hx of tubal ligation S/P hernia surgery Family History Mother Mental health disorder Dementia Maternal Aunt Mental health disorder Breast cancer Ovarian cancer Maternal Grandmother Mental health disorder Father Substance use disorder Asthma Maternal Aunt Uterine cancer Social History Housing: Apartment Alcohol intake: never Patient Tobacco Use Status: Former Tobacco user Tobacco use type: Cigarette e-Cigarette/Vaping Use: Never Used Second Hand Smoke Exposure: No service: No Current occupational status: unemployed 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 Cognitive needs: No Hearing needs: No Vision needs: No Female Reproductive History Menstrual Age of Menarche: 15 Review of Systems Const All systems reviewed & are unremarkable except as noted in HPI and below Physical Exam Vital Signs: Last Vital Signs Temp 98.4 F 05/22/25 10:01 Pulse 67 05/22/25 10:01 BP 120/78 05/22/25 10:01 Pulse Ox 98 05/22/25 10:01 Oxygen Delivery Method Room Air 05/22/25 10:01 BMI result Body Mass Index 24.0 Const General: no acute distress; No comfortable Nutritional Appearance: well nourished Orientation/consciousness: patient oriented x3 HEENT Head: Yes normocephalic Ears: external ears normal and TM abnormal with fluid behind the TM bilateral General nose exam: Normal external nose present, Abnormal mucous membranes and turbinates present boggy and erythematous and Nasal discharge present Face and sinus: Yes sinus tenderness Mouth: moist mucous membranes Throat: Yes uvula midline Resp Effort & Inspection: normal respiratory effort, able to speak in complete sentences, no audible wheezes and no cough Auscultation: clear to auscultation bilaterally, no crackles, no rales, no rhonchi and no wheezes Cardio Heart sounds: S1 normal heart sound present and S2 normal heart sound present Neuro General: patient oriented x3 Assessment & Plan Assessment & Plan (1) Acute respiratory disease: Code(s): J06.9 - Acute upper respiratory infection, unspecified Plan: Ordered SARs Increase oral fluids and rest OTC acetaminophen or ibuprofen as needed for fever, body aches, and headache. OTC oral antihistamine (e.g. cetirizine) OTC intranasal saline spray or fluticasone nasal spray for congestion Educated patient on viral nature of most URIs and expected course Reviewed return precautions: worsening symptoms, persistent fever > 7?10 days, increased ear pain, facial pain, SOB, or new symptoms Orders: Orders SARS-CoV2/FLU/RSV Today R09.89 - Other specified symptoms and signs involving the circulatory and respiratory systems Medications: New pseudoephedrine HCl ER (Sudafed 12 Hour) 120 mg PO Q12H 30 tabs 0RF J06.9 - Acute upper respiratory infection, unspecified oxymetazoline 0.05% (Afrin (oxymetazoline)) 2 sprays intranasal Q12H 22 mL 0RF nasal congestion 3 days J06.9 - Acute upper respiratory infection, unspecified Changed From acetaminophen 1,000 mg (2 x 500 mg) PO QID PRN 30 tabs 0RF pain J06.9 - Acute upper respiratory infection, unspecified To acetaminophen 1,000 mg (2 x 500 mg) PO Q6H 30 tabs 0RF pain J06.9 - Acute upper respiratory infection, unspecified Refilled cetirizine (Zyrtec) 10 mg PO DAILY 60 tabs 0RF H65.93 - Unspecified nonsuppurative otitis media, bilateral, J06.9 - Acute upper respiratory i nfection, unspecified Discontinued meclizine Discontinued Reason: Order 25 mg PO BID 30 days PRN 60 tabs 0RF dizziness Coding Level of Care Code Est Pt Level 4 (56842) Diagnoses Acute respiratory disease J06.9 Time Spent (min) 20
[2025-05-22 10:01] VITALS: BP 120/78; PULSE 67; TEMP 36.9; O2SAT 98; BMI 24.0
--- OUTSIDE RECORDS SUMMARY | 2025-05-22 11:05 | XMS_ITS | Encounter Summary ---
Author Organization [facility] Address [address] [place] [address] Care Team Providers Care Probation And Patrol Agent Name Role Phone Rebecca Goode PATRICIA Primary Care Provider [phone] Encounter Details Date Type Department Care Team ([facility] Contact Info) Description 07/31/2022 Abstract [facility] [address] [place] [address] Titus Heck DMD [address] [place] [address] Social History Tobacco Use Types Packs/Day Years [...] Department Care Team (Late Contact Info) Description 08/04/2025 1:30 PM EST Office Visit [facility] [address] [place] [address] Padmini Cintron [address] [place] [address] documented as of this encounter Visit Diagnoses Not on filedocumented in this encounter Care Teams Probation And Patrol Agent Relationship Specialty Start Date End Date Rebecca Goode OD [address] [place] [id number] PCP - General Optometry 07/14/18 06/07/23 documented as of this encounter
--- OUTSIDE RECORDS SUMMARY | 2025-05-22 11:05 | XMS_ITS | Clinical Summary ---
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 Name Role Phone Unavailable Primary Care Provider [...] Encounters Date Type Department Care Team Description 05/03/2025 Telephone [facility] [address] [place] [address] Padmini Cintron from Last 3 Months Immunizations Immunization Administration Dates Next Due Influenza Injectable Quadriv [...] Sign Reading Time Taken Comments Blood Pressure 124/80 01/10/2025 8:00 AM EDT Pulse 66 09/18/2023 9:33 AM EDT Temperature - - Respiratory Rate - - Oxygen Saturation - - Inhaled Oxygen Concentration - - Weight - - Height - - Body Mass Index - - Plan of Treatment Upcoming Encounters Date Type Department Care Team (Late st Contact Info) Description 08/04/2025 1:30 PM EST Office Visit [facility] [address] [place] [address] Padmini Cintron [address] [place] [address] Health Maintenance Due Date Last Done Comments CT Colonography 1965 Colonoscopy 1965 Colorectal Cancer Screening 1965 Depression Screening 1965 FIT DNA/Cologuard 1965 FIT 1965 FOBT 1965 HIV Screening 1965 SDOH Screening 1965 Sigmoidoscopy 1965 Disability Screening 1965 Alcohol/Substance Use Screening 1977 Hepatitis C Screening 09/23/1983 Hepatitis B Vaccines (1 of 3 - 19+ 3-dose series) 1984 Pap Smear 1986 Cervical Cancer Screening 09/23/1995 HPV/Cotest 09/23/1995 Mammogram 2005 Pneumococcal Vaccine: 50+ Years (2 of 2 - PCV) 09/23/2015 12/26/2010 Zoster Vaccines (1 of 2) 09/23/2015 COVID-19 Vaccine (1 - 2024- season) 2025 Influenza Vaccine (#1) 2025 , 03/26/2021, 02/28/2019, Additional history exists Dental Oral Exam 04/03/2025 09/30/2024, 07/2022, 03/28/2022 Dental Prophylaxis 04/03/2025 09/30/2024, 1 , 09/18/2023, Additional history exists Dental X-Ray: Bitewings 11/08/2025 11/08/19 25, 09/30/2024, 08/25/2023, Additional history exists Tobacco Screening 02/17/2026 02/17/2025 DTaP/Tdap/Td Vaccines (2 - Td or Tdap) 07/01/2026 07/01/2016 Dental X-Ray: Full Mouth 10/02/2027 09/30/2024, 090 11/2020 RSV Patients and Patients Aged 60 years [...] patient's age to complete this topic Meningococcal B Vaccine Aged Out No l onger eligible based on patient's age to complete [...] Procedure Name Priority Date/Time Associated Diagnosis Comments BITEWING - SINGLE RADIOGRAPHIC IMAGE Routine 11/07/2024 11:30 AM EDT PROPHYLAXIS - ADULT Routine 09/30/2024 1 0:00 AM EDT Dental plaque INTRAORAL - COMPLETE SERIES OF RADIOGRAPHIC IMAGES Routine 09/30/2024 10:00 AM EDT Dental plaque PERIODIC ORAL EVALUATION - ESTABLISHED PATIENT Routine 09/30/2024 10:00 AM EDT from Last 3 Months or Most Recently Relevant to Health Maintenance Insurance D[facility]AL-[facility] MEDICAID STAND ADULT DENTAL-[facility] MEDICAID STAND ADULT
--- OUTSIDE RECORDS SUMMARY | 2025-05-22 11:05 | XMS_ITS | Encounter Summary ---
Author Organization [employer] [facility] Address [address] [facility] [address] [place] [address] Care Team Providers Care Geospatial Imagery Intelligence Analyst Name Role Phone Rebecca Goode OD Primary Care Provider [phone] Encounter Details Date Type Department Care Team (Latest Contact Info) Description 03/28/2022 Abstract [facility] CONVERSIONS Dental, Provider, DDS Social History [...] Description 08/04/2025 1:30 PM EST Office Visit [facility] ADULT DENTAL [address] [place] [address] Abdulaziz, Padmini [address] [place] [address] documented as of this encounter Visit Diagnoses Not on filedocumented in this encounter Care Teams Geospatial Imagery Intelligence Analyst Relationship Specialty Start Date End Date Rebecca Goode OD [address] [place] [id number] PCP - General Optometry 07/14/18 06/07/23 documented as of this encounter
--- OUTSIDE RECORDS SUMMARY | 2025-05-22 11:05 | XMS_ITS | Encounter Summary ---
Author Organization [employer] [facility] Address [address] [facility] [address] [place] [address] Care Team Providers Care Clinic Office Assistant Name Role Phone Rebecca Goode OD Primary Care Provider [phone] Encounter Details Date Type Department Care Team (Latest Contact Info) Description 02/05/2021 Abstract [facility] CONVERSIONS Dental, Provider, DDS Social History Tobacco [...] Description 08/04/2025 1:30 PM EST Office Visit [facility] ADULT DENTAL [address] [place] [address] Abdulaziz, Padmini [address] [place] [address] documented as of this encounter Visit Diagnoses Not on filedocumented in this encounter Care Teams Clinic Office Assistant Relationship Specialty Start Date End Date Rebecca Goode OD [address] [place] [id number] PCP - General Optometry 07/14/18 06/07/23 documented as of this encounter
--- OUTSIDE RECORDS SUMMARY | 2025-05-22 11:05 | XMS_ITS | Encounter Summary ---
Author Organization [employer] [facility] Address [address] [facility] [place] [address] Care Team Providers Care Box Blank Machine Operator Helper Name Role Phone Rebecca Goode OD Primary Care Provider Encounter Details Date Type Department Care Team (Latest Contact Info) Description 04/12/2019 Abstract [facility] CONVERSIONS Dental, Provider, DDS [...] Description 08/04/2025 1:30 PM EST Office Visit [facility] ADULT DENTAL [address] [place] [address] Abdulaziz, Padmini [address] [place] [address] documented as of this encounter Visit Diagnoses Not on filedocumented in this encounter Care Teams Box Blank Machine Operator Helper Relationship Specialty Start Date End Date Rebecca Goode OD [address] [place] [id number] PCP - General Optometry 07/14/18 06/07/23 documented as of this encounter
--- OUTSIDE RECORDS SUMMARY | 2025-05-22 11:05 | XMS_ITS | Encounter Summary ---
Author Organization [employer] [facility] Address [address] [place] [address] [address] [place] [address] Care Team Providers Care Ruby Developer Name Role Phone Rebecca Goode PATRICIA Primary Care Provider Encounter Details Date Type Department Care Team (Late st Contact Info) Description 04/28/2022 Abstract [facility] ADULT DENTAL [address] [place] [address] Dental, Provider, DDS Social History Tobacco Use [...] Description 08/04/2025 1:30 PM EST Office Visit [facility] ADULT DENTAL [address] [place] [address] Padmini Cintron [address] [place] [address] documented as of this encounter Procedures Procedure [...] on filedocumented in this encounter Care Teams Ruby Developer Relationship Specialty Start Date End Date Rebecca Goode OD [address] [place] [phone] PCP - General Optometry 07/14/18 06/07/23 documented as of this encounter
== END 2025-05-22 11:16 | disposition home or self-care (01) ==
PROVIDERS: PCP Internal Medicine; Visit Provider Nurse Practitioner Family
DX: J06.9 Acute upper respiratory infection, unspecified (principal)